=== PATIENT | female | born 1955 | race Hispanic/Latino ===

== ENCOUNTER 2017-08-25 09:29 | Inpatient (IN) | payer OTHER ==
[2017-08-25 10:04] LABS: #Basophils 0.1 thou/uL (0.0-0.2); #Eosinphils 0.1 thou/uL (0.0-0.7); #Lymphocytes 1.4 thou/uL (1.20-3.40); #Monocytes 0.3 thou/uL (0.11-0.59); #Neutrophils 6.8 thou/uL (1.40-6.50); %Basophils 0.7 % (0.0-1.0); %Eosinophils 0.7 % (0.0-10.0); %Lymphocytes 16.1 % (21.0-51.0); Hematocrit 35.1 % (36.0-47.0); Mean Platelet Volume 8.1 fL (7.4-10.4); Red Blood Cell (RBC) Count 4.12 mill/uL (4.20-5.40); White Blood Cell (WBC) Count 8.5 thou/uL (4.8-10.8)
[2017-08-25 10:25] LABS: ALT (SGPT) 22 U/L (8-55); AST (SGOT) 34 U/L (5-34); Alkaline Phosphatase 127 U/L (40-150); Anion Gap 17 mmol/L (10-20); BUN (Urea Nitrogen) 41 mg/dL (9.8-20.1); Bilirubin, Total 0.4 mg/dL (0.2-1.2); Calc. Creatinine Clearance 0 mL/min (70-130); Calcium 8.7 mg/dL (7.8-10.44); Carbon Dioxide 23 mmol/L (23-31); Chloride 102 mmol/L (98-107); Estimated GFR-MDRD 17; Globulin 3.7 g/dL (2.4-3.5); Protein, Total 7.1 g/dL (6.0-8.3)
[2017-08-25 10:30] LABS: Troponin I 0.034 ng/mL (< 0.028)
[2017-08-25] MEDS ORDERED: Dextrose 50% Abboject 50 ML SYRINGE ONE (11:12)
[2017-08-25 12:41] LABS: Bilirubin Negative (Negative); Blood, Urine Trace (Negative); Glucose, Urine (Dipstick) 500 mg/dL (Negative); Ketone, Urine Negative (Negative); Nitrite Negative (Negative); Protein, Urine (Dipstick) 300 mg/dL (Neg-Trace)
[2017-08-25 12:43] LABS: Bacteria/HPF None Seen HPF (None Seen); Hyaline Casts/LPF 0-3 HYALINE CAST LPF (0-3 Hyaline); Squamous Epithelial 0-3 HPF (0-3); WBC/HPF 0-3 HPF (0-3)
[2017-08-25] MEDS ORDERED: Potassium Bicarbonate/Cit Ac 25 MEQ TAB ONE (12:53)
[2017-08-25 14:13] LABS: Troponin I 0.013 ng/mL (< 0.028)
--- NOTE | 2017-08-25 14:58 | HP ---
PRIMARY CARE PHYSICIAN: Christa Schumacher M.D. CHIEF COMPLAINT: Hypoglycemic episode. HISTORY OF PRESENT ILLNESS: Ms. Morfin is a very pleasant 62-year-old female who reported that gt ier that she was feeling extremely weak this morning. EMS was called and her blood sugar was noted to be 40. The EMS gave the patient's glucose en route and had increased up to 70. When she was edel luated in the ER, it was found that her creatinine was elevated at 2.79. She was also hypokalemic a nd her repeat blood sugar was 57 and for this reason she is being placed in observation. She says t hat her primary care physician recently increased her insulin from Levemir 35 units in the morning a nd 40 units in the evening to 45 units in both the morning as well as evening. The patient also has noted a decreased appetite over the last few years actually and has lost from 180 pounds down to 14 0 pounds in the last year or more. She denies any dysphagia or odynophagia; however, her primary ca re physician had made arrangements for her to have what sounds like an upper endoscopy. She denies any sick symptoms such as fever, chills, sore throat, cough, congestion or diarrhea. She does have a history of chronic kidney disease. Her son says for the last 2 years last known, it was stage 4. [address] Lima few days ago and he had ordered some lab work on the patient as well as increased her chlorthalidone dose and was planning on getting a renal ultrasound as well as lower extremity ve nous Doppler on the right leg. The patient is currently awake and alert and has no specific complai nts. REVIEW OF SYSTEMS: CONSTITUTIONAL: There have been no fevers, no chills, no night sweats, no weigh t loss. HEENT: She denies any headaches, no dizziness, no visual changes, no sore throat, rhinorrh ea, neck pain, no adenopathy. PULMONARY: No hemoptysis, no cough, no wheezing. CARDIOVASCULAR: S he denies any chest pain, no shortness of breath, no PND, no orthopnea. GASTROINTESTINAL: No abdom inal pain recently. No dysphagia, no odynophagia, no nausea, no vomiting, no change in bowels. GEN ITOURINARY: No urinary frequency, hematuria, no hesitancy. NEUROLOGIC: No focal weakness, numbnes s, no seizures. PSYCHIATRIC: No symptoms of anxiety or depression. PAST MEDICAL HISTORY: Significant for diabetes mellitus for about 30 years, hypertension, elevated cholesterol, thyroid disease, chronic kidney disease stage 4, asthma and hepatitis C. PAST SURGICAL HISTORY: She has had a partial hysterectomy as well as cholecystectomy. ALLERGIES: No known drug allergies. SOCIAL HISTORY: She is , but . She is a nonsmoker and nondrinker, has three childr en. FAMILY HISTORY: Significant for diabetes, hypertension, brain cancer, and cirrhosis. CURRENT MEDICATIONS: Include losartan 100 mg daily, clonidine 0.1 mg twice a day, amlodipine 10 mg daily, chlorthalidone 25 mg twice a day, iron sulfate 325 mg daily, fenofibrate 48 mg daily, levothy roxine 88 mcg daily, Levemir 45 units twice a day, Tradjenta 5 mg daily, ProAir inhaler, and Nexium 40 mg daily. PHYSICAL EXAMINATION: GENERAL: The patient is awake and alert and oriented. She appears to be in no acute distress. VITAL SIGNS: Blood pressure was 164/74, heart rate 89, respiratory rate of 18, temperature is 98.5. HEENT: Pupils are equal, round, and reactive. Extraocular muscles are intact. Her sclerae are ani cteric. Throat; no erythema, no exudates. She has got poor dentition. No oral lesions. NECK: No adenopathy, no bruits. LUNGS: Clear to auscultation. No wheezing, no rales. CARDIOVASCULAR: She has a normal S1 and S2. I do not appreciate an S3 or S4. No murmurs, clicks. No rubs. ABDOMEN: Soft, nontender, nondistended. Positive for bowel sounds. No rebound, no guarding. EXTREMITIES: She does have bilateral pitting edema with right leg being more than the left. She burleson s got palpable dorsalis pedis pulses. NEUROLOGIC: Neurologically, the exam is nonfocal. SIGNIFICANT LABORATORY RESULTS: Sodium was 139, potassium 2.5, chloride is 102, CO2 of 23, BUN of 4 1, creatinine of 2.79, glucose 57. Troponin 0.034, white blood cell count 8.5, hemoglobin 11.9, hem atocrit of 35.1, platelet count is 288. Urinalysis is essentially negative. ASSESSMENT AND PLAN: 1. This is a pleasant 62-year-old female that presents to the emergency room after hypoglycemic epi sode. This occurred shortly after the patient's insulin dose was raised. This is also in the setti ng of chronic kidney failure. The likely scenario is that the hypoglycemic episode is due to the in crease in dose of insulin in the setting of chronic kidney disease. Although infection is a possibi lity, it does not appear evident in this patient as her white count is normal. Her urinalysis looks okay. We will go ahead and check a chest x-ray to rule out pulmonary process; however, she does no t have any pulmonary symptoms. It is noted that her troponins are in the indeterminate range. Agai n this is likely related to chronic kidney disease. We will continue to trend her cardiac enzymes a nd reassess. 2. With regards to glycemic control, the patient says the last time she felt good was when she was on 35 units twice a day; however, she says at that time her blood sugars were in the 300s reportedly . It is unclear what type of diet she was consuming at that time. I suspect she is going to be a f airly brittle diabetic given kidney disease and therefore suggest outpatient Endocrinology evaluatio n to help maintain her blood sugars. In the meantime, we will try to get the patient out of dangero usly low values and decrease her insulin back to 30 units along with treating her with a sliding sca le and see what her trend is. 3. We will go ahead and check the renal ultrasound for the kidney injury to see if she has any obst ructive pattern and to make sure her kidney size is compatible with chronic kidney disease. 4. We will check the lower extremity venous Doppler to rule out deep venous thrombosis. We will al so consult Dr. Lima who has recently seen her for any further recommendations regarding her kidney d isease.
[2017-08-25] MEDS ORDERED: Acetaminophen 325 MG TAB PO PRN (16:02)
[2017-08-25] MEDS ORDERED: Ondansetron HCl/PF 4 MG/2 ML Vial IVP PRN (16:02)
[2017-08-25] MEDS ORDERED: HumaLOG 300 UNITS/3 ML VIAL SC PRN (16:02)
[2017-08-25] MEDS ORDERED: Ondansetron ODT 4 MG TAB PO PRN (16:02)
[2017-08-25] MEDS ORDERED: hydrALAZINE 20 MG/ML VIAL SLOW IVP PRN (16:02)
[2017-08-25] MEDS ORDERED: Dextrose 5% in Water 1,000 ML IV PRN (16:02)
[2017-08-25] MEDS ORDERED: Dextrose 50% Abboject 50 ML SYRINGE SLOW IVP PRN (16:02)
[2017-08-25 16:24] LABS: Troponin I 0.014 ng/mL (< 0.028)
[2017-08-25] MEDS ORDERED: Heparin 0 ML ONE (17:27)
[2017-08-25] MEDS: Heparin 5,000 UNITS/ML VIAL SC SCH ×2 (17:30→21:17)
--- NOTE | 2017-08-25 18:06 | RAD ---
CHEST TWO VIEWS: 08/25/17 HISTORY: Chest pain. FINDINGS: The cardiac silhouette and pulmonary vasculature are unremarkable. Mediastinum is midline. There is no confluent air space consolidation, pneumothorax, or pleural fluid evident. laboratory monitor leads overlie the chest. IMPRESSION: No active cardiopulmonary abnormalities are demonstrated. POS: [facility]
--- NOTE | 2017-08-25 18:24 | ULT ---
RENAL ULTRASOUND: 08/25/17 COMPARISON: None. HISTORY: Acute versus chronic kidney disease. TECHNIQUE: Multiplanar davis scale sonographic imaging of kidneys and urinary bladder obtained. FINDINGS: Right kidney measures 10.7 x 4.8 x 5.5 cm. There is a probable subcentimeter stone within the mid/lo wer pole of the right kidney measuring up to 5-6 mm. No hydronephrosis or mass seen on the right. Im aging of the urinary bladder appears grossly unremarkable. The left kidney measures 11.3 x 4.8 x 6.0 cm and demonstrates no discrete stone, hydronephrosis, or mass. IMPRESSION: No hydronephrosis seen on either side. Question subcentimeter right renal stone. POS: [facility]
--- NOTE | 2017-08-25 18:36 | ULT ---
RIGHT LOWER EXTREMITY VENOUS DOPPLER ULTRASOUND 08/25/17 COMPARISON: None. HISTORY: Right lower extremity edema, swelling. TECHNIQUE: Multiplanar davis scale sonographic imaging of venous structures of right lower extremity obtained wi th color flow and spectral analysis. FINDINGS: Right common femoral vein, greater saphenous vein, profunda femoral vein, femoral vein, popliteal ve in and posterior tibial vein are patent. there is normal blood flow and augmentation compression wit hin deep venous system of right lower extremity with no evidence for DVT. IMPRESSION: No evidence for deep venous thrombosis of the right lower extremity. POS: [facility]
[2017-08-25] MEDS ORDERED: Insulin Detemir 100 UNITS/ML 30 UNITS in Pre-Filled Syringe SC SCH (21:00)
[2017-08-25] MEDS ORDERED: Heparin 5,000 UNITS/ML VIAL SC SCH (22:00)
--- NOTE | 2017-08-25 22:44 | CON ---
DATE OF CONSULTATION: 08/25/2017 NEPHROLOGY CONSULTATION CONSULTING PHYSICIAN: Rio Mike M.D. REASON FOR CONSULTATION: Acute kidney injury on chronic kidney disease. REASON FOR ADMISSION: Hypoglycemia. HISTORY OF PRESENT ILLNESS: This is a 62-year-old female with a past medical history of chronic kid tex disease and follows with Dr. Lima, type 2 diabetes, hypertension, hyperlipidemia, asthma, and he patitis C, came to the hospital with hypoglycemic episode. The patient was not feeling well. Denie s any fevers, chills. No nausea, vomiting, or diarrhea lately. She just had dry heaves this mornin g when the sugar was low, but right now, she feels better. Family was at the bedside. No sick cont acts at home. No skin rash reported. PAST MEDICAL HISTORY: Positive for type 2 diabetes, hypertension, hyperlipidemia, hypothyroidism, c hronic kidney disease, asthma, hepatitis C. PAST SURGICAL HISTORY: Partial hysterectomy and cholecystectomy. HOME MEDICATIONS: Losartan, clonidine, amlodipine, chlorthalidone, sulfate, fenofibrate, levothyrox ine, Levemir, Tradjenta, ProAir, Nexium. ALLERGIES: No known drug allergies. SOCIAL HISTORY: No smoking, alcohol, or illicit drug use. FAMILY HISTORY: Positive for diabetes. REVIEW OF SYSTEMS: The following complete review of systems was negative, unless otherwise mentione d in the HPI or below: Constitutional: Weight loss or gain, ability to conduct usual activities. Skin: Rash, itching. Eyes: Double vision, pain. ENT/Mouth: Nose bleeding, neck stiffness, pain, tenderness. Cardiovascular: Palpitations, dyspnea on exertion, orthopnea. Respiratory: Shortness of breath, wheezing, cough, hemoptysis, fever or night sweats. Gastrointestinal: Poor appetite, abdominal pain, heartburn, nausea, vomiting, constipation, or diar elisa. Genitourinary: Urgency, frequency, dysuria, nocturia. Musculoskeletal: Pain, swelling. Neurologic/Psychiatric: Anxiety, depression. Allergy/Immunologic: Skin rash, bleeding tendency. PHYSICAL EXAMINATION: GENERAL: This is an elderly female, in no apparent distress. VITAL SIGNS: Temperature 98.5, pulse 89, respiratory rate 18, blood pressure 164/74. HEENT: Atraumatic, normocephalic. Oral mucosa is moist. NECK: Supple, no masses. CARDIOVASCULAR: S1, S2 heard. Rate and rhythm normal. RESPIRATORY: Clear. MUSCULOSKELETAL: 1+ edema. DERMATOLOGIC: No skin rash. NEUROLOGIC: Alert, awake. PSYCHIATRIC: Mood and affect normal. LABORATORY DATA: Hemoglobin 7.9. Potassium is 2.5, BUN is 41, and creatinine is 2.7. ASSESSMENT AND PLAN: 1. Acute kidney injury on chronic kidney disease, most likely volume depletion, hydration as tolera tay, avoid nephrotoxins. We will hold the diuretics at this time. Continue oral hydration. 2. Hypokalemia, most likely from diuretics, replace and monitor closely. 3. Hypoglycemia, per primary team. 4. Anemia, mild. 5. Edema, controlled. 6. Hypertension. Blood pressure is stable. 7. Avoid nephrotoxins. Renally dose all the medicines. IV fluids if tolerated. Replete potassium . Thank you for the consultation. We will follow.
[2017-08-26 05:18] LABS: #Basophils 0.1 thou/uL (0.0-0.2); #Eosinphils 0.2 thou/uL (0.0-0.7); #Lymphocytes 1.7 thou/uL (1.20-3.40); #Monocytes 0.3 thou/uL (0.11-0.59); #Neutrophils 3.1 thou/uL (1.40-6.50); %Basophils 1.2 % (0.0-1.0); %Lymphocytes 31.3 % (21.0-51.0); %Monocytes 5.2 % (0.0-10.0); Hematocrit 26.8 % (36.0-47.0); Mean Platelet Volume 8.6 fL (7.4-10.4); White Blood Cell (WBC) Count 5.3 thou/uL (4.8-10.8)
[2017-08-26 05:32] LABS: Anion Gap 10 mmol/L (10-20); BUN (Urea Nitrogen) 36 mg/dL (9.8-20.1); Calc. Creatinine Clearance 26 mL/min (70-130); Calcium 7.9 mg/dL (7.8-10.44); Carbon Dioxide 27 mmol/L (23-31); Chloride 106 mmol/L (98-107); Estimated GFR-MDRD 20
[2017-08-26] MEDS ORDERED: Insulin Detemir 100 UNITS/ML 30 UNITS in Pre-Filled Syringe SC SCH (09:00)
[2017-08-26] MEDS: Heparin 5,000 UNITS/ML VIAL SC SCH ×2 (09:29→15:30)
[2017-08-26] MEDS ORDERED: Potassium Chloride 20 MEQ TAB PO SCH (14:45)
--- NOTE | 2017-08-26 14:56 | PDOC.PN ---
- Subjective Encounter Start Date: 08/26/17 Encounter Start Time: 14:55 Ms. Morfin does not have any complaints today. - Objective Resuscitation Status: Resuscitation Status FULL:Full Resuscitation MAR Reviewed: Yes Vital Signs & Weight: Vital Signs (12 hours) Temp Pulse Resp BP Pulse Ox 08/26/17 09:25 98.2 F 100 16 148/72 H 98 08/26/17 08:35 98.2 F 100 16 08/26/17 04:00 98.1 F 78 20 168/77 H 96 Weight Weight 154 lb I&O: 08/25/17 08/26/17 08/27/17 06:59 06:59 05:59 Intake Total 720 Output Total 900 Balance -180 Result Diagrams: 08/26/17 04:54 08/26/17 04:54 Additional Labs: Accuchecks 08/26/17 08/26/17 08/26/17 13:06 08:10 04:49 POC Glucose 176 H 96 71 08/26/17 08/25/17 08/25/17 00:03 20:48 17:24 POC Glucose 94 98 149 H 08/25/17 15:21 POC Glucose 221 H Phys Exam - Physical Examination HEENT: PERRLA Respiratory: no wheezing, no rales, no rhonchi, clear to auscultation bilateral Cardiovascular: RRR, no significant murmur Gastrointestinal: soft, non-tender, positive bowel sounds Musculoskeletal: no edema Dx/Plan (1) Hypoglycemia associated with diabetes Code(s): E11.649 - TYPE 2 DIABETES MELLITUS WITH HYPOGLYCEMIA WITHOUT COMA Status: Acute (2) Hypokalemia Code(s): E87.6 - HYPOKALEMIA Status: Acute (3) Hypertension Code(s): I10 - ESSENTIAL (PRIMARY) HYPERTENSION Status: Acute (4) Diabetes mellitus type 2 in obese Code(s): E11.69 - TYPE 2 DIABETES MELLITUS WITH OTHER SPECIFIED COMPLICATION; E66.9 - OBESITY, UNSPECIFIED Status: Acute (5) Chronic kidney disease, stage 4 (severe) Code(s): N18.4 - CHRONIC KIDNEY DISEASE, STAGE 4 (SEVERE) Status: Acute - Plan * Hypoglycemia- improved * DM- blood glucose is better on a lower dose of insulin * Hypokalemia- will replace, and hold Chlorthaladone * Stable for discharge home.
[2017-08-26 15:05] VITALS: BMI 29.0
[2017-08-26 15:50] VITALS: BP 147/64; TEMP 98.7
--- NOTE | 2017-08-26 17:37 | PRG ---
DATE OF SERVICE: 08/26/2017 SUBJECTIVE: The patient was seen and examined at the bedside and overnight events noted. The patie nt denies any shortness of breath or chest pain or palpitation. No history of nausea, vomiting, temi rrhea, fever, chills, or cramps. OBJECTIVE: GENERAL: This is a well-built female in no apparent distress. VITAL SIGNS: Temperature 98.2, pulse 100, respiratory rate 17, blood pressure 148/72. HEENT: Atraumatic, normocephalic, Oral mucosa is moist. NECK: Supple. CARDIOVASCULAR: S1, S2 heard, rate and rhythm regular. RESPIRATORY: Clear to auscultation. GASTROINTESTINAL: Abdomen is soft. MUSCULOSKELETAL: No tenderness, no edema. DERMATOLOGIC: No skin rash. NEUROLOGIC: Alert, awake, and oriented x3. No focal neurologic deficits. Moving all the extremiti es. PSYCHIATRIC: Mood and affect normal. LABORATORY DATA: Potassium is 3.3, BUN is 36, creatinine is 2.4. ASSESSMENT AND PLAN: 1. Acute kidney injury on chronic kidney disease, stage 4. Feels better. Avoid nephrotoxins, cont inue hydration as tolerated. 2. Hypokalemia, replace and monitor. 3. Anemia. 4. Edema. 5. Hypertension. 6. Overall, renal function is getting better. Replace potassium and monitor.
--- NOTE | 2017-08-27 01:22 | DIS ---
DATE OF ADMISSION: 08/25/2017 DATE OF DISCHARGE: 08/26/2017 PRIMARY CARE PHYSICIAN: Christa Schumacher MD DISCHARGE DISPOSITION: Home. PRIMARY DISCHARGE DIAGNOSES: 1. Hypoglycemia. 2. Diabetes mellitus, type 2. 3. Hypertension. 4. Hypokalemia secondary to medication. 5. Elevated cholesterol. 6. Chronic kidney disease stage IV. 7. Asthma. 8. Hepatitis C. 9. Hypothyroidism. DISCHARGE MEDICATIONS: Please note that the patient's chlorthalidone is on hold until she is re-edel luated by Dr. Lima. Also please note that her insulin dose was decreased to 30 units twice a day of the Levemir, continue clonidine 0.1 mg t.i.d., sodium bicarbonate 650 mg twice daily, losartan 100 mg daily, Tradjenta 5 mg daily, levothyroxine 88 mcg daily, ferrous sulfate 325 mg t.i.d., fenofibra te 48 mg at bedtime, Nexium 40 mg daily, vitamin D 1000 units daily, vitamin B12 of 500 mcg daily, a nd amlodipine 10 mg daily. PROCEDURES DONE DURING ADMISSION: She had a renal ultrasound showing no hydronephrosis. There was a possible subcentimeter stone within the mid pole of the right kidney measuring 5-6 mm, but there w as no hydronephrosis or mass in either kidney. The patient also had a lower extremity venous Dopple r of the right leg, which was negative for DVT. CODE STATUS: FULL CODE. ALLERGIES: No known drug allergies. HOSPITAL COURSE: Ms. Morfin is a pleasant 62-year-old female who was admitted to the hospital due t o hypoglycemia. She recently had a dose increase in her Levemir. It is suspected that this was the likely culprit for the hypoglycemia. There was no evidence of infection by laboratory results or x -ray. She had cardiac enzyme done on admission, which was negative and she had a total of 3 sets. Thyroid function screen was normal as well. The patient has a history of chronic kidney disease and she had some mild acute on chronic kidney failure on admission as well. This results with holding her diuretic therapy as well as some hypokalemia, which is likely due to diuretic therapy as well. The patient was instructed that she will need to keep her oral intake up and eat 3 meals a day as we ll as a bedtime snack and we will be sending her home on a reduced dose of insulin, which she may ru n a little bit high, but further titration can be done by Dr. Schumacher in the outpatient setting and a gain her chlorthalidone will be on hold due to hypokalemia until she has been reevaluated by Dr. Enoc boyce.
--- NOTE | 2017-10-14 16:46 | EKG ---
Test Reason : LOW BLOOD SUGAR Blood Pressure : / mmHG Vent. Rate : 087 BPM Atrial Rate : 087 BPM P-R Int : 120 ms QRS Dur : 086 ms QT Int : 428 ms P-R-T Axes : 032 -36 075 degrees QTc Int : 515 ms Poor data quality, interpretation may be adversely affected Normal sinus rhythm Left axis deviation Prolonged QT Abnormal ECG Confirmed by SOCO ROMANO MD ([id number]), film editor supervisor RADHA ECHOLS ([id number]) on 10/14/2017 4:46:33 PM Referred By: JUAN ANTONIO Confirmed By:SOCO ROMANO MD
== END 2017-08-26 17:05 | disposition home or self-care (01) | DRG 639 ==
LOC: ERS 09:29 → 2NO 13:03
PROVIDERS: ADMIT Internal Medicine; ATTEND Internal Medicine
DX: E11.649 Type 2 diabetes mellitus with hypoglycemia without coma (principal); N17.9 Acute kidney failure, unspecified; N18.4 Chronic kidney disease, stage 4 (severe); E11.22 Type 2 diabetes mellitus with diabetic chronic kidney disease; Z79.4 Long term (current) use of insulin; E87.6 Hypokalemia; I12.9 Hypertensive chronic kidney disease with stage 1 through stage 4 chronic kidney disease, or unspecified chronic kidney disease; E78.00 Pure hypercholesterolemia, unspecified; J45.909 Unspecified asthma, uncomplicated; B18.2 Chronic viral hepatitis C; D63.1 Anemia in chronic kidney disease; E03.9 Hypothyroidism, unspecified; T50.2X5A Adverse effect of carbonic-anhydrase inhibitors, benzothiadiazides and other diuretics, initial encounter; T38.3X5A Adverse effect of insulin and oral hypoglycemic [antidiabetic] drugs, initial encounter; E78.5 Hyperlipidemia, unspecified; K21.9 Gastro-esophageal reflux disease without esophagitis; E55.9 Vitamin D deficiency, unspecified; E53.8 Deficiency of other specified B group vitamins
CPT/HCPCS: 36415; 36416; 71020; 76770; 80048; 80053; 81003; 81015; 82010; 82553; 84443; 84484; 85025; 87624; 88142; 93005; 96361; 96374; G0123; J1644; J1815

== ENCOUNTER 2017-09-18 16:48 | Emergency (ER) | payer OTHER ==
[2017-09-18 17:55] LABS: #Eosinphils 0.1 thou/uL (0.0-0.7); #Lymphocytes 1.1 thou/uL (1.20-3.40); #Monocytes 0.2 thou/uL (0.11-0.59); #Neutrophils 6.2 thou/uL (1.40-6.50); %Basophils 0.6 % (0.0-1.0); %Eosinophils 1.6 % (0.0-10.0); %Lymphocytes 13.9 % (21.0-51.0); %Monocytes 2.9 % (0.0-10.0); Hematocrit 32.3 % (36.0-47.0); Mean Platelet Volume 7.8 fL (7.4-10.4); Red Blood Cell (RBC) Count 3.71 mill/uL (4.20-5.40); White Blood Cell (WBC) Count 7.6 thou/uL (4.8-10.8)
[2017-09-18 18:19] LABS: ALT (SGPT) 30 U/L (8-55); AST (SGOT) 38 U/L (5-34); Alkaline Phosphatase 125 U/L (40-150); Anion Gap 15 mmol/L (10-20); BUN (Urea Nitrogen) 55 mg/dL (9.8-20.1); Bilirubin, Total 0.4 mg/dL (0.2-1.2); Calc. Creatinine Clearance 0 mL/min (70-130); Calcium 8.4 mg/dL (7.8-10.44); Carbon Dioxide 19 mmol/L (23-31); Chloride 107 mmol/L (98-107); Estimated GFR-MDRD 15; Globulin 3.4 g/dL (2.4-3.5); Lipase 79 U/L (8-78); Protein, Total 6.4 g/dL (6.0-8.3)
[2017-09-18] MEDS ORDERED: Promethazine HCl 25 MG/ML VIAL ONE (18:32)
[2017-09-18 19:00] LABS: Bilirubin Negative (Negative); Blood, Urine Trace (Negative); Glucose, Urine (Dipstick) 500 mg/dL (Negative); Ketone, Urine Trace mg/dL (Negative); Nitrite Negative (Negative); Protein, Urine (Dipstick) > or equal to 300 mg/dL (Neg-Trace); Urobilinogen 0.2 mg/dL (0.2-1.0)
[2017-09-18 19:02] LABS: Bacteria/HPF None Seen HPF (None Seen); Hyaline Casts/LPF 4-6 HYALINE CAST LPF (0-3 Hyaline); RBC/HPF 0-3 HPF (0-3)
[2017-09-18 19:04] LABS: Renal Epithelial None Seen HPF (0-3); Transitional Epithelial NONE SEEN HPF (0-3)
--- NOTE | 2017-09-18 20:10 | RAD ---
ABDOMEN 1 VIEW: Date: 09/18/17 HISTORY: Abdominal pain. COMPARISON: None. FINDINGS: Although the header says Abdomen 2 View, only 1 view of the abdomen in the supine view submitte d for interpretation. No dilated loops of large or small bowel. Evaluation for free air is limited without upright views. Dense vascular calcifications. Mild dextroscoliosis. IMPRESSION: Within the limits of a single view, no acute intra-abdominal abnormality. POS: [facility]
[2017-09-18] MEDS ORDERED: cefTRIAXone\\ROCEPHIN 2 GM in Sodium Chloride 0.9% 100 ML IVPB SCH (21:00)
== END 2017-09-18 20:03 | disposition home or self-care (01) ==
LOC: ERS 16:48
DX: N39.0 Urinary tract infection, site not specified (principal); N32.89 Other specified disorders of bladder; I12.0 Hypertensive chronic kidney disease with stage 5 chronic kidney disease or end stage renal disease; E11.22 Type 2 diabetes mellitus with diabetic chronic kidney disease; N18.6 End stage renal disease; Z79.4 Long term (current) use of insulin; Z79.899 Other long term (current) drug therapy
CPT/HCPCS: 51701; 74020; 80053; 81003; 81015; 83690; 85025; 87086; 96365; 96367; J0696; J2550; J7050

== ENCOUNTER 2017-09-25 08:55 | Outpatient (CLI) | payer OTHER | END 2017-09-25 08:56 | disposition home or self-care (01) | LOC: BICMAMMO 08:55 | PROVIDERS: ATTEND Internal Medicine | DX: Z12.31 Encounter for screening mammogram for malignant neoplasm of breast (principal); Z80.3 Family history of malignant neoplasm of breast | CPT/HCPCS: 77067; G0202 ==

== ENCOUNTER 2017-11-06 09:30 | Outpatient (CLI) | payer OTHER ==
--- NOTE | 2017-11-06 11:19 | ULT ---
COMPLETE ABDOMINAL ULTRASOUND: Date: 11/06/17 HISTORY: Epigastric abdominal pain. TECHNIQUE: Multiplanar Walker scale and color Doppler images were obtained in a complete abdominal ultrasound. FINDINGS: The liver is normal in echogenicity without focal lesions or intrahepatic ductal dilatation. The gall bladder has been removed. The common bile duct could not be visualized. The aorta, inferior vena cava, and pancreas could not be visualized. The spleen is normal in echogeni city without focal lesions and measures 11.2 cm in length. Both kidneys are normal in echogenicity without hydronephrosis or calculi and measure 10.5 and 10.3 c m in length on the right and left, respectively. IMPRESSION: Status post cholecystectomy without acute abnormality. POS: [facility]
--- NOTE | 2017-11-06 11:20 | ULT ---
PELVIC ULTRASOUND: Date: 11/06/17 HISTORY: Pelvic pain and epigastric abdominal pain. TECHNIQUE: Multiplanar Walker scale and color Doppler images were obtained in a transabdominal and transvaginal pe lvic ultrasound. FINDINGS: Uterus was removed in 1984. No mass is seen in the pelvis. A small amount of free fluid is seen in th e pelvis. Neither ovary could be visualized. IMPRESSION: Nonspecific small amount of free fluid in the pelvis. POS: [facility]
== END 2017-11-06 09:31 | disposition home or self-care (01) ==
LOC: ULT 09:30
PROVIDERS: ATTEND Internal Medicine
DX: R10.13 Epigastric pain (principal); Z90.49 Acquired absence of other specified parts of digestive tract
CPT/HCPCS: 76700; 76856

== ENCOUNTER 2018-01-10 16:48 | Inpatient (IN) | payer OTHER ==
[2018-01-10] MEDS ORDERED: Morphine 10 MG/ML VIAL ONE (17:42)
[2018-01-10 18:02] LABS: #Basophils 0.1 thou/uL (0.0-0.2); #Eosinphils 0.2 thou/uL (0.0-0.7); #Lymphocytes 1.4 thou/uL (1.20-3.40); #Monocytes 0.4 thou/uL (0.11-0.59); #Neutrophils 4.9 thou/uL (1.40-6.50); %Basophils 1.5 % (0.0-1.0); %Eosinophils 2.7 % (0.0-10.0); %Lymphocytes 19.5 % (21.0-51.0); %Monocytes 5.1 % (0.0-10.0); %Neutrophils 71.2 % (42.0-75.0); Hemoglobin 7.7 g/dL (12.0-16.0); Mean Corpuscular HGB CONC 33.6 g/dL (32.0-36.0); Mean Corpuscular Hemoglobin 27.5 pg (27.0-31.0); Mean Platelet Volume 7.7 fL (7.4-10.4); Platelet Count 166 thou/uL (130-400); RBC Distribution Width 11.9 % (11.5-14.5); Red Blood Cell (RBC) Count 2.81 mill/uL (4.20-5.40); White Blood Cell (WBC) Count 6.9 thou/uL (4.8-10.8)
[2018-01-10 18:14] LABS: ALT (SGPT) 32 U/L (8-55); AST (SGOT) 39 U/L (5-34); Albumin 2.7 g/dL (3.4-4.8); Alkaline Phosphatase 172 U/L (40-150); Anion Gap 17 mmol/L (10-20); BUN (Urea Nitrogen) 78 mg/dL (9.8-20.1); Bilirubin, Total 0.3 mg/dL (0.2-1.2); Calc. Creatinine Clearance 0 mL/min (70-130); Calcium 7.8 mg/dL (7.8-10.44); Carbon Dioxide 16 mmol/L (23-31); Chloride 108 mmol/L (98-107); Estimated GFR-MDRD 9; Globulin 3.1 g/dL (2.4-3.5); Glucose 328 mg/dL (80-115); Lipase 82 U/L (8-78); Potassium 3.4 mmol/L (3.5-5.1); Protein, Total 5.8 g/dL (6.0-8.3); Sodium 138 mmol/L (136-145)
[2018-01-10] MEDS ORDERED: Ondansetron HCl/PF 4 MG/2 ML Vial ONE (18:51)
[2018-01-10 19:48] LABS: CKMB 1.8 ng/mL (0-6.6); Troponin I Less than 0.010 ng/mL (< 0.028)
[2018-01-10 20:07] LABS: Bilirubin Negative (Negative); Blood, Urine Trace (Negative); Glucose, Urine (Dipstick) 250 mg/dL (Negative); Leukocyte Negative (Negative); Nitrite Negative (Negative); Protein, Urine (Dipstick) > or equal to 300 mg/dL (Neg-Trace); Urobilinogen 0.2 mg/dL (0.2-1.0)
[2018-01-10 20:16] LABS: Clarity Hazy (Clear)
[2018-01-10 20:17] LABS: Bacteria/HPF 1+ HPF (None Seen); RBC/HPF 0-3 HPF (0-3); Squamous Epithelial 0-3 HPF (0-3); WBC/HPF None Seen HPF (0-3)
--- NOTE | 2018-01-10 21:01 | CT ---
CT ABDOMEN NONCONTRAST CT PELVIS NONCONTRAST: (urolithiasis protocol) DATE: 01/10/18 TIME: 6:28 p.m. HISTORY: 62-year-old female with chronic renal disease presents with right mid abdominal pain. Patient states she has a hernia in that location. COMPARISON: None. TECHNIQUE: IV injection of iodinated contrast media: none Oral contrast media: none FINDINGS: Other than for urolithiasis, the lack of IV and oral contrast limits the evaluation. No hernia is identified. There is edema throughout the subcutaneous fat surrounding the abdomen and p james. There is extensive atherosclerotic calcification of all major arteries, including coronary art eries. No abdominal aortic aneurysm. Moderate amount of free fluid around the liver and spleen, and a long the bilateral paracolic gutters. Moderate volume of free fluid within the pelvic cavity. Uterus is surgically absent. Urinary bladder has wall thickness that is within normal limits. Within the deal itations of a noncontrast scan, no major pathology is identified involving the kidneys, liver, adrena ls, or spleen. Because of the generalized edema in the mesentery and retroperitoneum, it is difficult to evaluate for acute pancreatitis. There is apparent mural edema involving the stomach and duodenum . The appendix is normal. No abdominal aortic aneurysm. No renal, ureteral, or bladder calculi. No pl eural effusion. Lung bases are clear. In the lower most images, there is soft tissue thickening and i rregularity in the region of the vagina, incompletely evaluated. IMPRESSION: 1. Moderate volume of ascites. 2. Anasarca. 3. Status post cholecystectomy and hysterectomy. 4. No small bowel obstruction. 5. No urolithiasis or obstructive uropathy. 6. Extensive atherosclerotic calcification indicates either chronic renal failure or longstandin g diabetes mellitus. 7. Irregularity and soft tissue fullness in the region of the vagina and perineum. Recommend cor relation with physical examination to rule out the possibility of cancer in that location. 8. Possible gastroduodenitis. Code T JN R POS: [facility]
[2018-01-10] MEDS ORDERED: Ondansetron ODT 4 MG TAB SL PRN (21:21)
[2018-01-10] MEDS ORDERED: Ondansetron HCl/PF 4 MG/2 ML Vial IVP PRN (21:21)
[2018-01-10] MEDS ORDERED: Morphine 2 MG/ML SYRINGE SLOW IVP PRN (21:24)
[2018-01-10] MEDS ORDERED: Morphine 5 MG/ML SYRINGE SLOW IVP PRN (21:24)
[2018-01-11 02:08] LABS: Troponin I 0.015 ng/mL (< 0.028)
[2018-01-11] MEDS ORDERED: Enoxaparin Sodium 30 MG/0.3 ML SYRINGE SC SCH (03:12)
[2018-01-11] MEDS ORDERED: Acetaminophen 325 MG TAB PO PRN (03:12)
[2018-01-11] MEDS ORDERED: Dextrose 5% in Water 1,000 ML IV PRN (03:12)
[2018-01-11] MEDS ORDERED: Dextrose 50% Abboject 50 ML SYRINGE SLOW IVP PRN (03:12)
[2018-01-11] MEDS ORDERED: Pantoprazole 40 MG VIAL IVP SCH (03:12)
[2018-01-11] MEDS: Levothyroxine Sodium 88 MCG TAB PO SCH (05:17)
[2018-01-11] MEDS: Furosemide 40 MG/4 ML VIAL SLOW IVP SCH ×2 (05:17→14:55)
[2018-01-11 06:07] LABS: #Eosinphils 0.2 thou/uL (0.0-0.7); #Lymphocytes 1.3 thou/uL (1.20-3.40); #Monocytes 0.3 thou/uL (0.11-0.59); #Neutrophils 3.2 thou/uL (1.40-6.50); %Basophils 0.4 % (0.0-1.0); %Eosinophils 3.6 % (0.0-10.0); %Lymphocytes 26.2 % (21.0-51.0); %Monocytes 6.7 % (0.0-10.0); %Neutrophils 63.1 % (42.0-75.0); Hemoglobin 7.2 g/dL (12.0-16.0); Mean Corpuscular HGB CONC 33.9 g/dL (32.0-36.0); Mean Corpuscular Hemoglobin 28.6 pg (27.0-31.0); Mean Corpuscular Volume 84.3 fl (81.0-99.0); Platelet Count 159 thou/uL (130-400); RBC Distribution Width 12.1 % (11.5-14.5); Red Blood Cell (RBC) Count 2.51 mill/uL (4.20-5.40); White Blood Cell (WBC) Count 5.1 thou/uL (4.8-10.8)
[2018-01-11 06:19] LABS: Anion Gap 14 mmol/L (10-20); BUN (Urea Nitrogen) 77 mg/dL (9.8-20.1); Calc. Creatinine Clearance 14 mL/min (70-130); Calcium 7.4 mg/dL (7.8-10.44); Carbon Dioxide 16 mmol/L (23-31); Cardiac Risk 1.7 (Less than 4.5); Chloride 112 mmol/L (98-107); Cholesterol 78 mg/dl (< 200 Desired); Estimated GFR-MDRD 10; Glucose 85 mg/dL (80-115); HDL Cholesterol 45 mg/dL (>60 Neg Risk); LDL Cholesterol, Calculated 15 mg/dL; Magnesium 1.6 mg/dL (1.6-2.6); Sodium 139 mmol/L (136-145); Triglycerides 88 mg/dL (Less than 150)
[2018-01-11 06:22] LABS: Potassium 2.9 mmol/L (3.5-5.1)
[2018-01-11 06:23] LABS: Hemoglobin A1c 8.1 % (4.0-6.0)
[2018-01-11 07:24] LABS: INR-International Normal Ratio 1.1; PTT 41.8 SEC (22.9-36.1); Prothrombin Time 14.5 SEC (12.0-14.7)
--- NOTE | 2018-01-11 08:20 | HP ---
DATE OF ADMISSION: 01/11/2018 TIME OF SERVICE: 01:45 PRIMARY CARE PHYSICIAN: Christa Schumacher M.D. PRIMARY SSDS MK 2 ADVANCED OPERATOR: Afia Burk M.D. CHIEF COMPLAINT: Abdominal pain. HISTORY OF PRESENT ILLNESS: Ms. Morfin is a pleasant 62-year-old Latin-Mauritanian female with history of chronic kidney disease stage 3-4, depression, diabetes mellitus type 2, insulin-dependent, hyperte nsion, and asthma who presents to the emergency department in [facility] ER with complaint s of abdominal pain. Per the chart, she has had a history of chronic abdominal pain off and on, but was worse in the morni ng of presentation. It was a sharp stabbing pain located in the right mid and epigastric abdominal a raciel. She has been passing gas. She has had decreased p.o. intake. She has not felt like eating bec ause it seems to make the pain worse sometimes. Denies fevers or chills, no diarrhea or constipation . No GI bleeding from above or below. On arrival to ER, labs were done that showed creatinine up to 4.74, which is high for her. Labs are otherwise fairly normal except for hemoglobin of 7.7 and hematocrit of 25.0. There was some concern for possible SBP, she was given a dose of antibiotics and we were called for admission. The patient was accepted by the swing, Dr. Mike, but did not arrive prior to 9 o'clock, so patient was seen by me. She was resting comfortably in bed. She has some diffuse epigastric tenderness, but overall is feeling somewhat better. LABORATORY DATA: Reviewed. PAST MEDICAL HISTORY: 1. Depression. 2. Diabetes mellitus type 2, insulin-dependent. 3. Hypertension. 4. Asthma. 5. End-stage renal disease/chronic kidney disease stage 4-5. 6. Hyperlipidemia, primary cholesterol. 7. History of chronic hepatitis C, not treated yet. PAST SURGICAL HISTORY: 1. Cholecystectomy. 2. Hysterectomy. 3. Hernia repair x2. HOME MEDICATIONS: 1. Clonidine 0.1 mg p.o. at bedtime. 2. Sodium bicarbonate 650 mg p.o. b.i.d. 3. Multivitamin daily with losartan 100 mg p.o. daily. 4. Levothyroxine 88 mcg p.o. daily. 5. Levemir 60 units subcu b.i.d. 6. Iron sulfate 325 mg p.o. t.i.d. 7. Fenofibrate 45 mg p.o. at bedtime. 8. Vitamin D2. 9. Vitamin B12. 10. Norvasc 10 mg daily. 11. Albuterol MDI 2 puffs q.4 hours p.r.n. ALLERGIES: NKDA. FAMILY HISTORY: Negative for history of clotting or bleeding disorder, no immune dysfunction. SOCIAL HISTORY: Negative for habits x3. She never smoked. REVIEW OF SYSTEMS: A 10-point review of systems was performed, negative for all other systems except stated as per HPI. PHYSICAL EXAMINATION: VITAL SIGNS: Temperature 97.9, pulse 86, blood pressure 114/72, respiratory rate 20, satting 94% on room air. GENERAL: She is awake. She is alert. She is oriented x3. She is an older Latin-Mauritanian female ap pears to be in no distress. HEENT: Normocephalic and atraumatic. Her pupils are equal, round, reactive to light bilaterally, mu cous membranes are moist. Teeth are in poor repair. NECK: Supple, without lymphadenopathy, JVD, or thyromegaly. She has no carotid upstroke. I do not hear bruits. LUNGS: Clear anteriorly. She has no wheezes, no rales, no rhonchi. She has no prolonged expiratory phase. CARDIOVASCULAR: She has normal cardiac and regular. Normal S1, S2. No S3, S4. She does have a hol osystolic murmur best heard over the apex approximately 2/6. ABDOMEN: Soft and slightly obese. It is diffusely tender, primarily in the epigastrium. She has no rebound, rigidity or guarding. She has normoactive bowel sounds present in all 4 quadrants. EXTREMITIES: No cyanosis, no clubbing. She has 2+ edema in bilateral extremities all the way up to the lower abdomen. SKIN: Warm, moist, and well perfused. She has no other rashes or lesions. NEUROLOGIC: Cranial nerves II-XII were grossly intact. She has no focal deficits, normal speech, 5/ 5 strength, and symmetrical movement. MUSCULOSKELETAL: Normal to inspection. Large joints are uninflamed. There is no palpable effusions and good range of motion. LABORATORY DATA: Sodium 138, potassium 3.4, chloride 108, bicarbonate 16, BUN of 79, and creatinine of 4.74. Total protein 5.8 and albumin is 2.7. Calcium was slightly low at 7.8, alkaline phosphatas e 172, AST slightly elevated at 38, ALT normal at 32. CBC showed white count of 6.3, hemoglobin 7.7, hematocrit of 23.0, platelet count is 166,000. Lipase slightly elevated at 82. CK is elevated at 101, CK-MB normal at 1.0 and troponin I was less than 0. 010. RADIOGRAPHIC STUDIES: She had a CT scan of abdomen and pelvis, which showed moderate ascites, anasar ca, status post cholecystectomy and hysterectomy. Possible gastroduodenitis and perineal fullness. ASSESSMENT AND PLAN: 1. Abdominal pain: Pain control, n.p.o. and started on Protonix IV q.12 hours 40 mg. The patient h as moderate ascites. She does not have peritoneal signs and negative heel tap. We will get an ultra sound guided paracentesis for cell count, Gram stain, culture and fluid differential. In the meantim e we will follow up with antibiotics. 2. Anasarca: Patient's albumin is 2.7 or less. She has got acute renal failure on top of chronic k idney disease. We will try to adjust and started with some Lasix, otherwise we will follow up with Kaleigh Burk's recommendations. 3. Diabetes mellitus type 2, insulin-dependent on Levemir. We will continue. 4. Hypothyroidism on levothyroxine. 5. Hypertension. We will continue medications. 6. Asthma. Continue MDI as needed. 7. Chronic kidney disease stage 4-5, follow up with Dr. Burk's recommendations. 8. Chronic hepatitis C, not treated. The patient states they attempted to get her approved for one medication, but was denied and so now we are working on another medication. 9. Metabolic acidosis and acute kidney injury as above.
[2018-01-11] MEDS ORDERED: Potassium Chloride 20 MEQ TAB PO SCH (08:45)
[2018-01-11] MEDS ORDERED: Epoetin (ESRD) 20,000 UNITS/ML SC SCH (08:45)
[2018-01-11 09:15] LABS: Iron 64 ug/dL (50-170); Iron Binding Capacity, Total 190 mcg/dL (265-497)
[2018-01-11] MEDS: Amlodipine 10 MG TAB PO SCH (11:42)
[2018-01-11] MEDS: Ferrous Sulfate 325 MG TAB PO SCH ×3 (11:42→17:08)
[2018-01-11] MEDS: Multivitamin W/ Minerals 1 TAB PO SCH (11:42)
[2018-01-11] MEDS: Pantoprazole 40 MG VIAL IVP SCH ×2 (11:43→22:56)
[2018-01-11] MEDS: Sodium Bicarbonate Tab 325 MG TAB PO SCH ×2 (11:43→21:02)
[2018-01-11] MEDS: Ondansetron ODT 4 MG TAB PO PRN (11:55)
[2018-01-11 12:12] LABS: BF Color Yellow; Body Fluid Source PERITONEAL FLUID; Clarity Hazy (Clear); Tube # EDTA
[2018-01-11 12:17] LABS: RBC Background Count 0.001
[2018-01-11 12:25] LABS: BF RBC Count - Manual 51 /cumm; BF WBC/Nonhematics Ct. - Manua 53 /cumm
[2018-01-11 12:56] LABS: BF Segmented Neutrophils 7 %; Cell Count Non Hematic 42 %; Lymphocytes 51 %
--- NOTE | 2018-01-11 14:33 | ULT ---
ULTRASOUND GUIDED PARACENTESIS: 01/11/2018 HISTORY: Abdominal pain. Newly developed ascites. Paracentesis was requested. TECHNIQUE: After informed consent was obtained, the patient was placed on the sonography table in the supine pos ition. Limited sonographic evaluation of the abdomen was performed, demonstrating only a very small amount of intraperitoneal free fluid. An area in the midline infraumbilical region was marked and met iculously prepped and draped in the usual sterile fashion. The skin and subcutaneous tissues were in filtrated with buffered 1% Lidocaine for local anesthesia. A small skin incision was made. Utilizing concurrent real-time ultrasound guidance, a 19 gauge echoechoeh needle with a 5 Slovak catheter w as advanced into the abdomen. After return of fluid, the sheath was advanced and the needle was natan kelvin. Approximately 600 mL of pale, yellow-colored fluid was aspirated. The introducer sheath was re moved, and hemostasis was achieved with direct pressure. A dry, sterile dressing was placed at the p uncture site. The patient tolerated the procedure well and without immediate complication. The naman ent was transported to her hospital room in stable condition. IMPRESSION: Technically successful ultrasound guided paracentesis. Fluid was sent for laboratory values. POS: [facility]
--- NOTE | 2018-01-11 15:22 | PDOC.PN ---
- Subjective Encounter Start Date: 01/11/18 Encounter Start Time: 07:40 Pt seen for followup re: hypokalemia. Denies chest pain, fevers or chills. - Objective Resuscitation Status: Resuscitation Status FULL:Full Resuscitation MAR Reviewed: Yes Vital Signs & Weight: Vital Signs (12 hours) Temp Pulse Pulse Resp BP BP Pulse Ox 01/11/18 14:50 97.8 F 90 18 151/66 H 99 01/11/18 11:38 98 F 92 18 163/72 H 99 01/11/18 09:43 97.7 F 88 18 157/67 H 99 01/11/18 08:00 97.7 F 88 18 99 01/11/18 04:18 97.4 F L 79 12 141/65 H 98 Weight Admit Weight 147 lb 3.2 oz Weight 147 lb 3.2 oz I&O: 01/10/18 01/11/18 01/12/18 06:59 06:59 06:59 Intake Total 360 0 Output Total 800 Balance -440 0 Result Diagrams: 01/11/18 05:28 01/11/18 05:28 Additional Labs: Accuchecks 01/11/18 06:09 POC Glucose 93 EKG Reviewed by me: Yes (Tele: NSR) Phys Exam - Physical Examination Constitutional: NAD HEENT: PERRLA, moist MMs, sclera anicteric, oral pharynx no lesions Neck: supple Respiratory: no wheezing, no rales, no rhonchi, clear to auscultation bilateral Cardiovascular: RRR, no rub Gastrointestinal: soft, positive bowel sounds distention; mild epigastric tenderness, no guarding or rigidity Musculoskeletal: edema present Neurological: moves all 4 limbs Psychiatric: normal affect, A&O x 3 Skin: no rash Dx/Plan (1) Hypokalemia Code(s): E87.6 - HYPOKALEMIA Status: Acute Comment: Replace potassium (2) SBP (spontaneous bacterial peritonitis) Code(s): K65.2 - SPONTANEOUS BACTERIAL PERITONITIS Status: Suspected Comment : Continue antibiotics as below. For paracentesis. GI consulted. (3) Acute on chronic renal failure Code(s): N17.9 - ACUTE KIDNEY FAILURE, UNSPECIFIED; N18.9 - CHRONIC KIDNEY DISEASE, UNSPECIFIED Status: Acute Comment: Nephrology consulted. (4) Hypertension Code(s): I10 - ESSENTIAL (PRIMARY) HYPERTENSION Status: Chronic Comment: Monitor vital signs, titrate antihypertensives as needed. (5) DM2 (diabetes mellitus, type 2) Status: Chronic Comment: Continue accuchecks, insulin sliding scale. - Plan continue antibiotics, out of bed/ambulate * . Review of Systems - Review of Systems Constitutional: negative: fever, chills, sweats, weakness, malaise Cardiovascular: negative: chest pain, palpitations, orthopnea, paroxysmal nocturnal dyspnea, edema, light headedness Gastrointestinal: Abdominal Pain. negative: Nausea, Vomiting, Diarrhea, Constipation, Melena, Hematochezia, Other Genitourinary: negative: Dysuria, Frequency, Incontinence, Hematuria, Retention Musculoskeletal: negative: Neck Pain, Shoulder Pain, Arm Pain, Back Pain, Hand Pain, Leg Pain, Foot Pain - Medications/Allergies Allergies/Adverse Reactions: Allergies Allergy/AdvReac Type Severity Reaction Status Date / Time No Known Allergies Allergy Verified 01/10/18 21:25 Medications: Current Medications Acetaminophen (Tylenol) 650 mg PO Q4H PRN PRN Reason: Headache/Fever or Pain Hydrocodone Bitart/Acetaminophen (Callahan 5/325) 1 tab PO Q4H PRN PRN Reason: Moderate Pain (4-6) Amlodipine Besylate (Norvasc) 10 mg PO DAILY [facility] Last Admin: 01/11/18 11:42 Dose: 10 mg Clonidine (Catapres) 0.1 mg PO [facility] Dextrose/Water (Dextrose 50%) 25 gm SLOW IVP PRN PRN PRN Reason: Hypoglycemia Epoetin Sherman (Procrit) 7,500 units SC Q7D [facility] Last Admin: 01/11/18 14:56 Dose: 7,500 units Ferrous Sulfate (Feosol) 325 mg PO [facility] Last Admin: 01/11/18 14:55 Dose: 325 mg Furosemide (Lasix) 40 mg SLOW IVP 0600,1400 [facility] Last Admin: 01/11/18 14:55 Dose: 40 mg Glucagon (Glucagon) 1 mg IM PRN PRN PRN Reason: Hypoglycemia Dextrose/Water (D5w) 1,000 mls @ 0 mls/hr IV .Q0M PRN; As Directed PRN Reason: Hypoglycemia Insulin Human Lispro (Humalog) 0 units SC .MILD SLIDING SCALE PRN PRN Reason: Mild Correctional Scale Iron/Minerals/Multivitamins (Theragran M) 1 tab PO DAILY [facility] Last Admin: 01/11/18 11:42 Dose: 1 tab Levothyroxine Sodium (Synthroid) 88 mcg PO 0600 [facility] Last Admin: 01/11/18 05:17 Dose: 88 mcg Ondansetron HCl (Zofran Odt) 4 mg PO Q6H PRN PRN Reason: Nausea/Vomiting Last Admin: 01/11/18 11:55 Dose: 4 mg Pantoprazole Sodium (Protonix) 40 mg IVP Q12HR [facility] Last Admin: 01/11/18 11:43 Dose: 40 mg Sodium Bicarbonate (Bicarbonate, Sodium) 650 mg PO BID [facility] Last Admin: 01/11/18 11:43 Dose: 650 mg Sodium Chloride (Flush - Normal Saline) 10 ml IVF Q12HR [facility] Last Admin: 01/11/18 11:43 Dose: 10 ml Sodium Chloride (Flush - Normal Saline) 10 ml IVF PRN PRN PRN Reason: Saline Flush
[2018-01-11] MEDS ORDERED: Furosemide 40 MG/4 ML VIAL SLOW IVP SCH (18:15)
--- NOTE | 2018-01-11 20:02 | CON ---
DATE OF CONSULTATION: 01/11/2018 GI INPATIENT CONSULTATION NOTE REQUESTING PHYSICIAN: Dr. Gutiérrez. REASON FOR CONSULTATION: Ascites and abdominal pain. HISTORY OF PRESENT ILLNESS: Annalee Morfin is a 62-year-old woman who was admitted to [facility] night with abdominal pain and was found to have new onset ascites in the context of acute on chron ic renal failure. I first met her late last year in consultation for evaluation of longstanding anem ia and also new diagnosis of hepatitis C. At that time, patient's hemoglobin was 9.1. She has been on iron supplementation for a long time as an outpatient. I performed an EGD and colonoscopy on 08/24, the EGD showed multiple fundic gland polyps, one of which was oozing some blood and was remov ed, this was a benign hyperplastic polyp. In the colonoscopy, she has had 3 small sigmoid tubular ad enomas and internal hemorrhoids. The adenomas were all removed and I recommended repeat colonoscopy at a 3-year interval. She has continued on her PPI as well as her iron supplementation. We further worked her up for consideration of treatment for hepatitis C. She was found to have genotype 1a Fibr oSure testing actually demonstrated F0, A0, highly suggestive of minimal activity and no significant liver fibrosis. This has concordant with her normal INR level and normal platelet count. We had yessica nned to get her started on hepatitis C therapy. Evidently, insurance rejected her from [place] [facility] [employer] and o office has been working on getting approval for alternative hepatitis C therapy. She presented to the hospital last night with complaints of acute worsening of intermittent chronic a bdominal pains. This pain was starting out in the epigastrium and right upper quadrant, but then sta rted to move into the lower abdomen. There was no associated nausea, vomiting, or change in bowel burleson bits. Upon evaluation, she was found to have acute worsening of renal failure with creatinine now up to 4.56. A CT scan demonstrated moderate ascites and generalized anasarca, also with some mural supa ma involving the stomach and duodenum. She is post-cholecystectomy and hysterectomy. Also, she was noted to have thickening and irregularity in the vaginal area and clinical or gynecologic exam was ad vised. She is also noted to have worsening of her chronic anemia with hemoglobin 7.7 and this declin ed marginally to 7.2 today. There has been no overt gastrointestinal bleeding. FOBT was negative. She underwent an abdominal paracentesis with 600 liters of clear yellow fluid removed and the fluid i s negative for signs of SBP with cultures pending, only 57 WBCs and 7% neutrophils. The patient repo rts that following paracentesis today. Her abdominal pain is much improved. She has been tolerating her diet. She was able to eat lunch today without any problems, no worsening in abdominal pain, no nausea or vomiting. PAST MEDICAL HISTORY: Chronic kidney disease, diabetes type 2, hypertension, asthma, cholecystectomy and hysterectomy in 1984, benign gastric polyps on EGD 08/2017, colon polyps removed on colonoscopy 08/2017. Anemia of chronic disease, chronic hepatitis C, genotype 1a, treatment na?ve, atherosclerot ic disease. ALLERGIES: No known drug allergies. OUTPATIENT MEDICATIONS: Clonidine, sodium bicarbonate, losartan, multivitamin, levothyroxine, Levemi r insulin, ferrous sulfate 325 mg t.i.d., fenofibrate 45 mg at bedtime, vitamin D2, vitamin B12, Norv asc, albuterol p.r.n. FAMILY HISTORY: Negative for gastrointestinal malignancy. SOCIAL HISTORY: No smoking, alcohol, or drug use. REVIEW OF SYSTEMS: Full review of systems including constitutional, head, eyes, ears, nose, throat, GI, , cardiovascular, respiratory, musculoskeletal, and neurologic systems is negative except as no tay in the HPI. PHYSICAL EXAMINATION: VITAL SIGNS: Temperature 98.0, pulse 92, blood pressure 157/72, 98% oxygen saturation on room air. GENERAL: Chronically ill woman lying in bed comfortably in no distress. SKIN: No jaundice, no rashes that were palpable. EYES: No scleral icterus. Extraocular movements are intact. ENT: Mucous membranes moist, no oral lesions. LYMPH: No submandibular, supraclavicular lymphadenopathy. THYROID: Nontender to palpation. HEART: Regular rate and rhythm. LUNGS: Clear to auscultation bilaterally. ABDOMEN: Mild distention, some edema of the anterior abdominal wall. Bowel sounds present, soft, mi ld tenderness to palpation in the epigastrium, but no guarding, rebound tenderness. EXTREMITIES: A 1+ bilateral lower extremity edema. VESSELS: Radial pulses 2+ bilaterally. NEUROLOGICAL: Cranial nerves II through XII intact bilaterally. No focal deficits. LABORATORY STUDIES: Hemoglobin 7.2, MCV normal at 84. WBC 5.1, platelets normal at 159. Sodium 139 , potassium 2.9, BUN 77, creatinine 4.56. INR normal at 1.1, troponin negative. Ferritin elevated a t 404, TIBC low at 190, 34% iron saturation. Lactic acid normal at 1.1. Hemoglobin A1c 8.1%. PTH e levated to 287, total bilirubin 0.3, alkaline phosphatase 172, AST 39, ALT 32, albumin 2.7. FOBT neg ative. Peritoneal fluid studies show 57 WBCs only 7% PMNs. Cultures pending. IMAGING STUDIES: CT of the abdomen and pelvis from yesterday demonstrated diffuse anasarca, moderate amount of free fluid in the abdomen, some mural edema involving the stomach and duodenum. She is st atus post cholecystectomy and hysterectomy. There is also thickening and irregularity in the vaginal area. ASSESSMENT AND PLAN: 1. Ascites, new onset. I feel this is likely secondary primarily to her worsening renal function. Recent extensive liver workup demonstrated no evidence of cirrhosis or portal hypertension with a Fib roSure score of F0 A0. No varices seen on recent EGD. She has normal INR, normal platelet count. I f this ascites were related to liver disease, it would be the first and only manifestation of this. The fluid cell counts have come back low which is not suggestive of SBP. We would recommend continue d diuretics and monitoring of renal function per Nephrology. 2. Chronic hepatitis C, genotype 1a, treatment naive. We have been seeking approval for oral therap y through my clinic. The patient will likely eventually be treated with Harvoni. Again, note there is no clear evidence of cirrhosis at this time. We will not plan for liver biopsy at this time. 3. Anemia of chronic disease. Note her FOBT is negative. She had recent upper and lower endoscopy in 08/2017 and an oozing gastric polyp was removed, but there was no other evidence of any bleeding l esion. No plan for repeat endoscopy at this time. 4. Abdominal pain, improved. 5. Abnormal CT scan of the GI tract, with possible mural edema of the stomach and duodenum. Her abd ominal discomfort is improved today following paracentesis. I think the CT findings of mural edema o f the stomach and duodenum are likely just related to her ascites. No plan for endoscopic examinatio n at this time. Continue her on her PPI. Thank you for the consultation. Please call with questions or concerns.
[2018-01-11] MEDS: cloNIDine 0.1 MG TAB PO SCH (21:01)
[2018-01-12 05:32] LABS: #Eosinphils 0.1 thou/uL (0.0-0.7); #Lymphocytes 1.4 thou/uL (1.20-3.40); #Monocytes 0.3 thou/uL (0.11-0.59); #Neutrophils 3.5 thou/uL (1.40-6.50); %Basophils 0.7 % (0.0-1.0); %Eosinophils 2.8 % (0.0-10.0); %Lymphocytes 26.3 % (21.0-51.0); %Monocytes 5.5 % (0.0-10.0); %Neutrophils 64.7 % (42.0-75.0); Hemoglobin 10.7 g/dL (12.0-16.0); Mean Corpuscular HGB CONC 34.3 g/dL (32.0-36.0); Mean Corpuscular Hemoglobin 28.2 pg (27.0-31.0); Mean Platelet Volume 8.2 fL (7.4-10.4); Platelet Count 138 thou/uL (130-400); RBC Distribution Width 13.4 % (11.5-14.5); Red Blood Cell (RBC) Count 3.81 mill/uL (4.20-5.40); White Blood Cell (WBC) Count 5.3 thou/uL (4.8-10.8)
[2018-01-12] MEDS: Furosemide 40 MG/4 ML VIAL SLOW IVP SCH ×2 (05:55→14:49)
[2018-01-12] MEDS: Levothyroxine Sodium 88 MCG TAB PO SCH (05:55)
[2018-01-12 08:30] VITALS: BMI 25.7
[2018-01-12] MEDS: Ferrous Sulfate 325 MG TAB PO SCH ×3 (08:39→17:04)
[2018-01-12] MEDS: Sodium Bicarbonate Tab 325 MG TAB PO SCH ×2 (08:40→20:54)
[2018-01-12] MEDS: Multivitamin W/ Minerals 1 TAB PO SCH (08:40)
[2018-01-12] MEDS: Pantoprazole 40 MG VIAL IVP SCH ×2 (08:40→20:54)
[2018-01-12] MEDS: Amlodipine 10 MG TAB PO SCH (08:40)
[2018-01-12 09:34] LABS: Albumin 2.4 g/dL (3.4-4.8); Anion Gap 14 mmol/L (10-20); BUN (Urea Nitrogen) 76 mg/dL (9.8-20.1); BUN/Creatinine Ratio 14.99; Calc. Creatinine Clearance 13 mL/min (70-130); Calcium 7.4 mg/dL (7.8-10.44); Carbon Dioxide 17 mmol/L (23-31); Chloride 109 mmol/L (98-107); Estimated GFR-MDRD 9; Glucose 143 mg/dL (80-115); Phosphorus 5.2 mg/dL (2.3-4.7); Potassium 3.7 mmol/L (3.5-5.1); Sodium 136 mmol/L (136-145)
[2018-01-12] MEDS: HumaLOG 300 UNITS/3 ML VIAL SC PRN ×2 (11:55→22:13)
--- NOTE | 2018-01-12 12:59 | ULT ---
ULTRASOUND DOPPLER DUPLEX BILATERAL UPPER EXTREMITY VENOUS MAPPING: Date: 01/12/18 HISTORY: 62-year-old female with chronic renal failure requiring hemodialysis access. Planning study. TECHNIQUE: Walker scale, color flow, and spectral analysis of bilateral upper extremity veins. FINDINGS: Calibers are given in mm: RIGHT: Brachial Artery: 3.5 Radial Artery: 1.0 Ulnar Artery: 1.5 Cephalic Vein: Proximal arm: 1.5 Mid arm: 1.5 Distal arm: 1.0 Antecubital: 3.0 Proximal forearm: 1.0 Mid forearm: 1.0 Distal forearm: 0.5 Basilic Vein: Proximal arm: 4.5 Mid arm: 2.5 Distal arm: 2.5 Antecubital: 3.0 Proximal forearm: 1.0 Mid forearm: 1.5 Distal forearm: 1.0 LEFT: Brachial Artery: 3.0 Radial Artery: 1.0 Ulnar Artery: 1.5 Cephalic Vein: Proximal arm: 2.5 Mid arm: 1.5 Distal arm: 1.5 Antecubital: 1.5 Proximal forearm: 1.5 Mid forearm: 2.0 Distal forearm: Occluded Basilic Vein: Proximal arm: 1.5 Mid arm: 2.0 Distal arm: 2.0 Antecubital: 1.0 Proximal forearm: 1.0 Mid forearm: 1.0 Distal forearm: 1.0 There is soft tissue edema in the left arm, especially around the basilic vein. IMPRESSION: 1. None of the veins are consistently greater than 3 mm in caliber. 2. Soft tissue edema in the left arm. POS: [facility]
[2018-01-12] MEDS ORDERED: CEFAZOLIN/Water 2 GM/20 ML SYRINGE SLOW IVP SCH (13:45)
--- NOTE | 2018-01-12 14:38 | PDOC.PN ---
- Subjective Encounter Start Date: 01/12/18 Encounter Start Time: 08:00 Pt seen for followup re: acute on chronic renal failure. Reports feeling better after paracentesis. No nausea or vomiting. - Objective Resuscitation Status: Resuscitation Status FULL:Full Resuscitation MAR Reviewed: Yes Vital Signs & Weight: Vital Signs (12 hours) Temp Pulse Resp BP Pulse Ox 01/12/18 11:46 98 F 87 18 169/81 H 98 01/12/18 08:05 98 F 78 18 158/74 H 95 01/12/18 08:00 98 F 78 18 95 01/12/18 04:00 97.9 F 78 16 171/77 H 98 Weight Admit Weight 147 lb 3.2 oz Weight 150 lb I&O: 01/11/18 01/12/18 01/13/18 06:59 06:59 06:59 Intake Total 360 1000 Output Total 800 800 Balance -440 200 Result Diagrams: 01/12/18 05:11 01/12/18 05:11 Additional Labs: Accuchecks 01/11/18 01/11/18 20:11 15:50 POC Glucose 177 H 154 H EKG Reviewed by me: Yes (Tele; NSR) Phys Exam - Physical Examination Constitutional: NAD HEENT: PERRLA, moist MMs, sclera anicteric, oral pharynx no lesions Neck: no nodes, no JVD, supple, full ROM Respiratory: no wheezing, no rales, no rhonchi, clear to auscultation bilateral Cardiovascular: RRR, no rub Gastrointestinal: soft, non-tender, positive bowel sounds distention Musculoskeletal: pulses present, edema present Neurological: moves all 4 limbs Psychiatric: normal affect, A&O x 3 Dx/Plan (1) Acute on chronic renal failure Code(s): N17.9 - ACUTE KIDNEY FAILURE, UNSPECIFIED; N18.9 - CHRONIC KIDNEY DISEASE, UNSPECIFIED Status: Acute Comment: discussed with nephrology, plan to initiate dialysis during this hospitalization (2) Hypertension Code(s): I10 - ESSENTIAL (PRIMARY) HYPERTENSION Status: Chronic Comment: titrate antihypertensives as needed. (3) DM2 (diabetes mellitus, type 2) Status: Chronic Comment: accuchecks, insulin sliding scale. (4) Hypokalemia Code(s): E87.6 - HYPOKALEMIA Status: Resolved (5) SBP (spontaneous bacterial peritonitis) Code(s): K65.2 - SPONTANEOUS BACTERIAL PERITONITIS Status: Ruled-out Comment : Ruled out. - Plan * . Review of Systems - Review of Systems Constitutional: negative: fever, chills, sweats, weakness, malaise Respiratory: negative: Cough, Dry, Shortness of Breath, Hemoptysis, SOB with Excertion, Pleuritic Pain, Sputum, Wheezing Cardiovascular: negative: chest pain, palpitations, orthopnea, paroxysmal nocturnal dyspnea, edema, light headedness, other Gastrointestinal: negative: Nausea, Vomiting, Abdominal Pain, Diarrhea, Constipation, Melena, Hematochezia Genitourinary: negative: Dysuria, Frequency, Incontinence, Hematuria, Retention - Medications/Allergies Allergies/Adverse Reactions: Allergies Allergy/AdvReac Type Severity Reaction Status Date / Time No Known Allergies Allergy Verified 01/10/18 21:25 Medications: Current Medications Acetaminophen (Tylenol) 650 mg PO Q4H PRN PRN Reason: Headache/Fever or Pain Hydrocodone Bitart/Acetaminophen (Vanlue 5/325) 1 tab PO Q4H PRN PRN Reason: Moderate Pain (4-6) Amlodipine Besylate (Norvasc) 10 mg PO DAILY [facility] Last Admin: 01/12/18 08:40 Dose: 10 mg Cefazolin Sodium (Ancef) 2 gm SLOW IVP WILLCALL [facility] Clonidine (Catapres) 0.1 mg PO HS [facility] Last Admin: 01/11/18 21:01 Dose: 0.1 mg Dextrose/Water (Dextrose 50%) 25 gm SLOW IVP PRN PRN PRN Reason: Hypoglycemia Epoetin Sherman (Procrit) 7,500 units SC Q7D [facility] Last Admin: 01/11/18 14:56 Dose: 7,500 units Ferrous Sulfate (Feosol) 325 mg PO TID-WM [facility] Last Admin: 01/12/18 11:48 Dose: 325 mg Furosemide (Lasix) 40 mg SLOW IVP 0600,1400 [facility] Last Admin: 01/12/18 05:55 Dose: 40 mg Glucagon (Glucagon) 1 mg IM PRN PRN PRN Reason: Hypoglycemia Dextrose/Water (D5w) 1,000 mls @ 0 mls/hr IV .Q0M PRN; As Directed PRN Reason: Hypoglycemia Insulin Human Lispro (Humalog) 0 units SC .MILD SLIDING SCALE PRN PRN Reason: Mild Correctional Scale Last Admin: 01/12/18 11:55 Dose: 3 unit Iron/Minerals/Multivitamins (Theragran M) 1 tab PO DAILY [facility] Last Admin: 01/12/18 08:40 Dose: 1 tab Levothyroxine Sodium (Synthroid) 88 mcg PO 0600 [facility] Last Admin: 01/12/18 05:55 Dose: 88 mcg Ondansetron HCl (Zofran Odt) 4 mg PO Q6H PRN PRN Reason: Nausea/Vomiting Last Admin: 01/11/18 11:55 Dose: 4 mg Pantoprazole Sodium (Protonix) 40 mg IVP Q12HR [facility] Last Admin: 01/12/18 08:40 Dose: 40 mg Sodium Bicarbonate (Bicarbonate, Sodium) 650 mg PO BID [facility] Last Admin: 01/12/18 08:40 Dose: 650 mg Sodium Chloride (Flush - Normal Saline) 10 ml IVF Q12HR [facility] Last Admin: 01/12/18 08:40 Dose: 10 ml Sodium Chloride (Flush - Normal Saline) 10 ml IVF PRN PRN PRN Reason: Saline Flush
--- NOTE | 2018-01-12 15:10 | PRG ---
DATE OF SERVICE: 01/12/2018 GI INPATIENT DAILY PROGRESS NOTE SUBJECTIVE: Ms. Morfin is feeling alright. No further abdominal pain. She is feeling hungry and to lerating her diet. Renal function continued to worsen and she is planning to get started with dialys is. She had marking ultrasound earlier. OBJECTIVE: VITAL SIGNS: Temperature 98.0, pulse 87, blood pressure 169/81, 98% oxygen saturation on room air. GENERAL: No acute distress. HEART: Regular rate and rhythm. LUNGS: Clear to auscultation bilaterally. ABDOMEN: Soft and nontender to palpation throughout, nondistended. EXTREMITIES: 1+ bilateral lower extremity edema. LABORATORY STUDIES: WBC 5.3, hemoglobin 10.7, and platelets 138. Sodium 136, potassium 3.7, BUN up to 76, creatinine up to 5.07, glucose 143. ASSESSMENT AND PLAN: 1. Ascites. Fluid studies are negative for spontaneous bacterial peritonitis. 2. Acute on chronic renal failure. The patient has made the decision to initiate dialysis. 3. Chronic hepatitis C. This is genotype 1A. Recent extensive liver workup demonstrated no clear e vidence of cirrhosis. We will still work on getting her hepatitis C treated at some point in the nex t few months on an outpatient basis. 4. Anemia of chronic disease. Hemoglobin came up nicely to 10.7 with transfusion. 5. Upper abdominal pain, resolved. GI will sign off at this time, but please call back anytime with questions or concerns. Dr. Graff is covering for GI this weekend. ADDENDUM: Abnormal CT scan of the pelvis. I do note that her admission CT scan demonstrated a soft tissue irregularity in the vaginal area and further examination or consultation was recommended. [facility] gynecology consultation, be obtained if deemed appropriate by the primary service for inpatien t evaluation. Otherwise, we would recommend assuring that this gets followed up soon on an outpatien t basis.
[2018-01-12] MEDS ORDERED: Clopidogrel Bisulfate 75 MG TAB ONE (16:41)
--- NOTE | 2018-01-12 18:25 | PRG ---
DATE OF SERVICE: 01/12/2018 SUBJECTIVE: The patient is seen and examined, seems to be feeling better. PHYSICAL EXAMINATION: VITAL SIGNS: Afebrile, temperature 98, pulse 82, respiratory rate of 18, O2 sat 95% with blood press ure 168/76. HEENT: Unremarkable. Moist oral mucosa. No conjunctival injection or icterus. NECK: Supple. CARDIOVASCULAR: First and second heart sounds were heard. RESPIRATORY: Clear to auscultation. DIGESTIVE: Revealed a benign abdomen with positive bowel sounds. EXTREMITIES: Showed improved peripheral edema. NEUROLOGIC: Alert, oriented. No lateralizing signs. LYMPHATICS: No peripheral lymphadenopathy. LABORATORY INVESTIGATION: Showed hemoglobin of 10.7, status post blood transfusion. Chemistry showe d bicarbonate of 17, BUN of 76 with a creatinine of 5.07, calcium of 7.4 with phosphorus of 5.2, magn esium 1.4. PTH of 287. IMPRESSION: 1. Advanced chronic kidney disease stage 5. 2. Anemia of chronic kidney disease. 3. Hypertension. 4. Hyperparathyroidism with hyperphosphatemia. PLAN: 1. The patient is at a point that she is going to require renal replacement therapy (hemodialysis). Therefore, we will consult the surgeons to arrange for access creation. 2. Patient prefers peritoneal dialysis. Therefore, this will be part of the access been requested f or. 3. Vein mapping to evaluate the patient's vessels. 4. Continue erythropoiesis stimulating agents. 5. Further management to be dependent on the clinical course.
[2018-01-12] MEDS: cloNIDine 0.1 MG TAB PO SCH (20:53)
[2018-01-13] MEDS: Levothyroxine Sodium 88 MCG TAB PO SCH (06:15)
[2018-01-13] MEDS: Furosemide 40 MG/4 ML VIAL SLOW IVP SCH ×2 (06:16→14:02)
[2018-01-13] MEDS: Ferrous Sulfate 325 MG TAB PO SCH ×3 (09:04→17:24)
[2018-01-13] MEDS: Multivitamin W/ Minerals 1 TAB PO SCH (09:04)
[2018-01-13] MEDS: Sodium Bicarbonate Tab 325 MG TAB PO SCH ×2 (09:04→20:28)
[2018-01-13] MEDS: Amlodipine 10 MG TAB PO SCH (09:04)
[2018-01-13] MEDS: Pantoprazole 40 MG VIAL IVP SCH ×2 (09:05→20:28)
--- NOTE | 2018-01-13 14:24 | PDOC.PN ---
- Subjective Encounter Start Date: 01/13/18 Encounter Start Time: 14:22 Ms. Morfin was seen today in follow-up of new onset ESRD. She does not have any complaints today. The abdominal pain has resolved. - Objective Resuscitation Status: Resuscitation Status FULL:Full Resuscitation MAR Reviewed: Yes Vital Signs & Weight: Vital Signs (12 hours) Temp Pulse Resp BP BP Pulse Ox 01/13/18 11:33 98 F 86 18 134/85 99 01/13/18 09:04 83 156/86 H 01/13/18 08:00 98 F 86 18 156/85 H 97 01/13/18 04:00 98.3 F 74 18 138/78 97 Weight Admit Weight 147 lb 3.2 oz Weight 150 lb I&O: 01/12/18 01/13/18 01/14/18 06:59 06:59 06:59 Intake Total 1000 480 Output Total 800 Balance 200 480 Result Diagrams: 01/12/18 05:11 01/12/18 05:11 Additional Labs: Accuchecks 01/13/18 01/13/18 01/12/18 11:05 04:24 21:42 POC Glucose 148 H 97 231 H 01/12/18 01/12/18 01/12/18 16:55 10:23 05:31 POC Glucose 150 H 221 H 138 H Phys Exam - Physical Examination HEENT: PERRLA Respiratory: no wheezing, no rales, no rhonchi, clear to auscultation bilateral Cardiovascular: RRR, no significant murmur, no rub Gastrointestinal: soft, non-tender, no distention, positive bowel sounds Musculoskeletal: edema present trace pedal edema Dx/Plan (1) End stage renal disease Code(s): N18.6 - END STAGE RENAL DISEASE Status: Acute (2) Diabetes mellitus type 2 in obese Code(s): E11.69 - TYPE 2 DIABETES MELLITUS WITH OTHER SPECIFIED COMPLICATION; E66.9 - OBESITY, UNSPECIFIED Status: Chronic (3) Hypertension Code(s): I10 - ESSENTIAL (PRIMARY) HYPERTENSION Status: Chronic Comment: titrate antihypertensives as needed. - Plan * Abdominal pain has resolved, and was likely due to Ascites * ESRD- she is being initiated to dialysis, which she would like Peritoneal Dialysis * HTN- blood pressure is stable * DM- blood glucose is stable * Hepatitis- C- this will be treated as Outpatient * Vaginal wall thickening- will need Outpatient REGULATORY COMPLIANCE DIRECTOR evaluation.
[2018-01-13] MEDS: HumaLOG 300 UNITS/3 ML VIAL SC PRN ×2 (17:25→20:30)
[2018-01-13] MEDS: cloNIDine 0.1 MG TAB PO SCH (20:28)
--- NOTE | 2018-01-13 22:50 | CON ---
DATE OF CONSULTATION: 01/12/2018 REASON FOR CONSULTATION: Need for dialysis access. HISTORY: Ms. Morfin is a 62-year-old woman who was admitted to the hospital with abdominal pain and found to have new-onset ascites. She has been worked up by Gastroenterology for anemia and newly temi gnosed hepatitis C and no evidence of cirrhosis was found. She did undergo EGD and colonoscopy witho ut any signs of portal gastropathy or other signs of portal hypertension identified. She underwent p aracentesis with significant increase in her abdominal discomfort. She denies any changes in her bow el habits. She denies any fevers or chills and cultures of the peritoneal fluid have not shown any g rowth to date. She denies shortness of breath or other complaints and Dr. Oreilly does not feel t hat she will require dialysis urgently, but does feel that she has progressed to late-stage renal erika lure and will require dialysis in the near future. She prefers peritoneal dialysis after discussion with him, but he would like to have a fistula placed as well as a backup option. She does have a his tory of ventral hernia, which has been repaired in the past, although she is unsure whether mesh was used by her report, this was an open repair. PAST MEDICAL HISTORY: Chronic renal failure progressing to need for dialysis in the near future, typ e 2 diabetes, hypertension, asthma, hepatitis C, and anemia of chronic disease. PAST SURGICAL HISTORY: Open cholecystectomy, hysterectomy, EGD, and colonoscopy. ALLERGIES: No known drug allergies. OUTPATIENT MEDICATIONS: Include clonidine, bicarbonate, losartan, multivitamin, Synthroid, Levemir i nsulin, iron, fenofibrate, vitamin D, vitamin B12, Norvasc, and p.r.n. albuterol. INPATIENT MEDICATIONS: Amlodipine, clonidine, sliding scale insulin, Procrit, iron, Lasix, multivita min, Synthroid, Protonix, bicarbonate, and multiple p.r.n. FAMILY HISTORY: Noncontributory. SOCIAL HISTORY: She does not have any history of alcohol, drug, or tobacco use. REVIEW OF SYSTEMS: Ten-system review of systems is negative except per HPI. PHYSICAL EXAMINATION: VITAL SIGNS: Patient is afebrile throughout her hospital course, moderate-intermittent hypertension, heart rate in the 70s-80s, and saturating in the high 90s on room air. GENERAL: Reveals a pleasant woman in no acute distress. HEENT: Unremarkable. NECK: Supple without lymphadenopathy or thyroid nodules. No jugular venous distention is noted. HEART: Regular in its rate and rhythm without murmurs, rubs, or gallops. LUNGS: Clear to auscultation bilaterally, although breath sounds are somewhat diminished in the base s. I do not appreciate any crackles or wheezes currently. ABDOMEN: Soft, nontender, and nondistended. She does have minimal tenderness with palpation of the lateral third of her subcostal incision, but I cannot feel a definite hernia in this location nor can I definitely feel an umbilical hernia. No palpable masses are appreciated. EXTREMITIES: Warm and well perfused with minimal ankle edema. She does have some edema in her left forearm above the site of an IV and does not currently being used. No significant edema on the other arm, however. Antecubital veins are somewhat small to palpation, and I cannot appreciate forearm ve ins on either side of any significant size. On Jonathan's testing, she has slightly ulnar dominant fill ing bilaterally. NEUROLOGIC: No focal defects. PSYCHIATRIC: Alert, oriented, and appropriate. LABORATORY DATA: White count is normal, hematocrit 31.3, platelets 138. PTT is 41. INR 1.1, BUN an d creatinine at 76 and 5.07, which are up from her baseline. Bicarbonate is 42 and phosphorus 5.2. On her arrival in the hospital, AST is slightly elevated at 39 and alkaline phosphatase is slightly e levated at 172, but bilirubin was normal. Albumin was low at 2.7. IMAGING: CT images are reviewed and I agreed with written report. She has generalized anasarca and ascites. In addition, patient appears to have a fascial defect on the right subcostal area with fat only protruding through the defect and may also have a small fat containing umbilical hernia at the b ase of her umbilicus. Vein mapping shows no significant forearm veins on the right, but a good sized upper arm basilic vein . On the left, her cephalic vein on the forearm appears to be good caliber into the distal forearm a t which it is occluded. She does have an IV at this site. Her basilic vein is smaller than on the r ight, but her upper arm cephalic vein is larger. ASSESSMENT: Chronic renal failure approaching need for dialysis. Her senior operator recommended a per itoneal dialysis catheter to be placed as well as a fistula as a backup option. She does not feel th at she will require immediate dialysis in the next month or so and has not required a tunneled-hemodi alysis catheter. Patient does on CT scan have a couple of small ventral hernias, which I have recomm ended to be repaired under the same anesthesia at the same time that her peritoneal dialysis catheter s placed, as we would expect these defects to become more problematic with ongoing peritoneal dialysi s. I have discussed the procedure of peritoneal dialysis catheter placement and laparoscopic ventral hernia repair with mesh with the patient and she understands and accepts the inherent risks of these procedures. These include but are not limited to bleeding, infection, risks of anesthesia, damage t o internal structures such as bowel, and hernia recurrence and enlargement. I have also discussed fi stula placement with her. I have asked that the peripheral IV in her left forearm be removed. Hopef ully, this will allow the left forearm cephalic vein to be usable for dialysis, but is not the upper arm cephalic vein may be adequate. The inherent risks of fistula placement were also discussed with the patient. These include, but are not limited to bleeding, infection, risks of anesthesia, need fu rther procedures to obtain or maintain patency of the fistula, failure of the fistula to develop and arterial steal, which can cause ischemic damage to the hand, which can be permanent. She understands and accepts these risks and wishes to proceed. If her condition clinically worsens between now and the time of her surgery, then tunneled hemodialysis catheter placement may be necessary as well. The patient had eaten breakfast on Monday morning, so has been placed on a schedule for Monday.
[2018-01-14] MEDS: Levothyroxine Sodium 88 MCG TAB PO SCH (05:49)
[2018-01-14] MEDS: Furosemide 40 MG/4 ML VIAL SLOW IVP SCH ×2 (05:50→13:27)
[2018-01-14] MEDS: Sodium Bicarbonate Tab 325 MG TAB PO SCH ×2 (08:38→20:21)
[2018-01-14] MEDS: Ferrous Sulfate 325 MG TAB PO SCH ×3 (08:39→17:45)
[2018-01-14] MEDS: Multivitamin W/ Minerals 1 TAB PO SCH (08:39)
[2018-01-14] MEDS: Pantoprazole 40 MG VIAL IVP SCH ×2 (08:39→20:21)
[2018-01-14] MEDS: Amlodipine 10 MG TAB PO SCH (08:39)
[2018-01-14] MEDS: HumaLOG 300 UNITS/3 ML VIAL SC PRN ×3 (12:42→20:22)
--- NOTE | 2018-01-14 15:10 | PDOC.PN ---
- Subjective Encounter Start Date: 01/14/18 Encounter Start Time: 15:08 Ms. Morfin was seen today in follow-up. She does not have any complaints. - Objective Resuscitation Status: Resuscitation Status FULL:Full Resuscitation MAR Reviewed: Yes Vital Signs & Weight: Vital Signs (12 hours) Temp Pulse Resp BP BP Pulse Ox 01/14/18 08:39 75 157/86 H 01/14/18 08:00 97.6 F 75 16 157/86 H 98 Weight Admit Weight 147 lb 3.2 oz Weight 150 lb I&O: 01/13/18 01/14/18 01/15/18 06:59 06:59 06:59 Intake Total 1180 Balance 1180 Result Diagrams: 01/12/18 05:11 01/12/18 05:11 Additional Labs: Accuchecks 01/14/18 01/14/18 01/13/18 11:11 04:45 19:48 POC Glucose 159 H 116 H 225 H 01/13/18 15:45 POC Glucose 239 H Phys Exam - Physical Examination HEENT: PERRLA Respiratory: no wheezing, no rales, no rhonchi, clear to auscultation bilateral Cardiovascular: RRR, no significant murmur, no rub Gastrointestinal: soft, non-tender, positive bowel sounds Musculoskeletal: no edema Dx/Plan (1) End stage renal disease Code(s): N18.6 - END STAGE RENAL DISEASE Status: Acute (2) Diabetes mellitus type 2 in obese Code(s): E11.69 - TYPE 2 DIABETES MELLITUS WITH OTHER SPECIFIED COMPLICATION; E66.9 - OBESITY, UNSPECIFIED Status: Chronic (3) Hypertension Code(s): I10 - ESSENTIAL (PRIMARY) HYPERTENSION Status: Chronic Comment: titrate antihypertensives as needed. - Plan * ESRD- patient now requires dialysis * plan is to have PD catheter placed as well as AV fistula * She will also have a Ventral Hernia repaired as well * DM- blood glucose is stable * HTN- blood pressure is stable.
[2018-01-14] MEDS: cloNIDine 0.1 MG TAB PO SCH (20:21)
[2018-01-15] MEDS: Furosemide 40 MG/4 ML VIAL SLOW IVP SCH ×2 (02:30→13:50)
[2018-01-15] MEDS: Levothyroxine Sodium 88 MCG TAB PO SCH (02:31)
[2018-01-15 06:02] LABS: Albumin 2.3 g/dL (3.4-4.8); Anion Gap 11 mmol/L (10-20); BUN (Urea Nitrogen) 80 mg/dL (9.8-20.1); BUN/Creatinine Ratio 15.18; Calc. Creatinine Clearance 12 mL/min (70-130); Calcium 7.7 mg/dL (7.8-10.44); Carbon Dioxide 21 mmol/L (23-31); Chloride 105 mmol/L (98-107); Estimated GFR-MDRD 8; Glucose 81 mg/dL (80-115); Phosphorus 4.5 mg/dL (2.3-4.7); Potassium 3.4 mmol/L (3.5-5.1); Sodium 134 mmol/L (136-145)
[2018-01-15] MEDS: Ferrous Sulfate 325 MG TAB PO SCH ×3 (09:00→16:22)
[2018-01-15] MEDS: Multivitamin W/ Minerals 1 TAB PO SCH (09:00)
[2018-01-15] MEDS: Amlodipine 10 MG TAB PO SCH (09:00)
[2018-01-15] MEDS: Pantoprazole 40 MG VIAL IVP SCH ×2 (09:01→20:40)
[2018-01-15] MEDS: Sodium Bicarbonate Tab 325 MG TAB PO SCH ×2 (09:01→20:41)
--- NOTE | 2018-01-15 11:08 | PDOC.EVN ---
Event Note - Event Note Event Note: I spoke with the patient this morning regarding Code status. She has an existing Out of Hospital DNR. She says after her surgery she would like to return to DNR status.
--- NOTE | 2018-01-15 11:11 | PDOC.PN ---
- Subjective Encounter Start Date: 01/15/18 Encounter Start Time: 11:10 Ma. Morfin was seen today in follow-up. She does not have any complaints this morning. - Objective Resuscitation Status: Resuscitation Status DNR:Do Not Resuscitate MAR Reviewed: Yes Vital Signs & Weight: Vital Signs (12 hours) Temp Pulse Resp BP Pulse Ox 01/15/18 09:00 82 01/15/18 08:00 98.2 F 82 16 01/15/18 07:56 98.2 F 82 16 163/84 H 97 01/15/18 07:42 98.0 F 80 16 151/86 H 98 Weight Admit Weight 147 lb 3.2 oz Weight 150 lb I&O: 01/14/18 01/15/18 01/16/18 06:59 06:59 06:59 Intake Total 1180 1270 Balance 1180 1270 Result Diagrams: 01/12/18 05:11 01/15/18 05:19 Additional Labs: Accuchecks 01/15/18 01/14/18 01/14/18 03:40 19:57 16:24 POC Glucose 115 H 191 H 241 H 01/14/18 11:11 POC Glucose 159 H Phys Exam - Physical Examination HEENT: PERRLA Respiratory: no wheezing, no rales, no rhonchi, clear to auscultation bilateral Cardiovascular: RRR, no significant murmur, no rub Gastrointestinal: soft, non-tender, positive bowel sounds Musculoskeletal: no edema Dx/Plan (1) End stage renal disease Code(s): N18.6 - END STAGE RENAL DISEASE Status: Acute (2) Diabetes mellitus type 2 in obese Code(s): E11.69 - TYPE 2 DIABETES MELLITUS WITH OTHER SPECIFIED COMPLICATION; E66.9 - OBESITY, UNSPECIFIED Status: Chronic (3) Hypertension Code(s): I10 - ESSENTIAL (PRIMARY) HYPERTENSION Status: Chronic Comment: titrate antihypertensives as needed. - Plan * Newly diagnosed ESRD- she is being prepared for PD * She will go for PD catheter placement as well as AV- fistula, and ventral hernia repair * Code status was addressed, and she will be DNR as requested following surgery * DM- blood glucose is stable. * HTN- blood pressure is stable
[2018-01-15] MEDS ORDERED: Ioversol 68 % 50 ML VIAL ONE (11:46)
[2018-01-15] MEDS ORDERED: Protamine Sulfate 50 MG/5 ML VIAL ONE (11:46)
[2018-01-15] MEDS ORDERED: Heparin 5,000 UNITS/ML VIAL ONE (11:46)
[2018-01-15] MEDS ORDERED: Fentanyl 250 MCG/5 ML VIAL ONE (11:54)
[2018-01-15] MEDS ORDERED: CEFAZOLIN/Water 2 GM/20 ML SYRINGE ONE (12:13)
[2018-01-15] MEDS ORDERED: Bupivacaine/Epinephrine 0.25% 30 ML VIAL ONE (12:42)
[2018-01-15] MEDS ORDERED: Heparin 10,000 UNITS/1 ML VIAL ONE (12:43)
[2018-01-15] MEDS ORDERED: Ondansetron HCl/PF 4 MG/2 ML Vial IVP PRN (16:11)
[2018-01-15] MEDS ORDERED: Ondansetron HCl/PF 4 MG/2 ML Vial ONE (16:16)
[2018-01-15] MEDS ORDERED: Glycopyrrolate 0.2 MG/ML 5 ML SYRINGE ONE (16:16)
[2018-01-15] MEDS ORDERED: Dexamethasone 20 MG/5 ML VIAL ONE (16:16)
[2018-01-15] MEDS ORDERED: Heparin 10,000 UNITS/ 10 ML VIAL ONE (16:16)
[2018-01-15] MEDS ORDERED: Propofol 200 MG/20 ML VIAL ONE (16:16)
[2018-01-15] MEDS ORDERED: Lidocaine 1% PF 5 ML VIAL ONE (16:16)
[2018-01-15] MEDS ORDERED: Fentanyl 100 MCG/2 ML VIAL ONE (16:58)
[2018-01-15] MEDS: Ondansetron ODT 4 MG TAB PO PRN (17:43)
--- NOTE | 2018-01-15 19:18 | PRG ---
DATE OF PROCEDURE: 01/15/2018 SUBJECTIVE: Patient is seen and examined with surgery and not able to be followed. PHYSICAL EXAMINATION: VITAL SIGNS: Afebrile, temperature 98.2, pulse 82, respiratory rate 16, O2 sat 97% on room, blood pr essure 116/84. HEENT: Unremarkable. CARDIOVASCULAR: First and second heart sounds were heard. RESPIRATORY: Clear to auscultation. DIGESTIVE: Revealed a benign abdomen. EXTREMITIES: Showed mild peripheral edema. SKIN: No new gross rash. LYMPHATICS: No peripheral lymphadenopathy. LABORATORY INVESTIGATION: Showed creatinine of 5.27, BUN of 80, bicarbonate 21, potassium 3.4, sodiu m 134. IMPRESSION: 1. Advanced chronic kidney disease/end-stage renal disease. 2. Hypokalemia with mild hyponatremia. 3. Metabolic acidosis. PLAN: 1. The patient to secure dialysis access today and aware of AV fistula creation as well as peritonea l dialysis placement. Patient wants home peritoneal dialysis, does not want hemodialysis. We will f lida outpatient peritoneal dialysis treatment initiation. 2. Further management will be dependent on a clinical course.
[2018-01-15] MEDS: cloNIDine 0.1 MG TAB PO SCH (20:40)
[2018-01-15] MEDS: HYDROcodone/Acetaminophen 5/325 mg Tablet PO PRN (20:44)
[2018-01-16 05:31] LABS: HBSAB Concentration 0.15 mIU/mL; HBSAg Index 0.14 S/CO (0-0.99); Hep B Core Total Ab Non-Reactive (NonReactive); Hep B Core Total Index 0.16 S/CO (0-0.79); Hep B Surf AB Non-Reactive (NonReactive); Hep B Surf Ag Non-Reactive S/CO (NonReactive)
[2018-01-16] MEDS: Furosemide 40 MG/4 ML VIAL SLOW IVP SCH ×2 (05:41→15:10)
[2018-01-16] MEDS: Levothyroxine Sodium 88 MCG TAB PO SCH (05:41)
[2018-01-16] MEDS: HYDROcodone/Acetaminophen 5/325 mg Tablet PO PRN ×4 (05:42→20:23)
[2018-01-16 06:32] LABS: Hep C IgG Ab Reflex HepC Qnt (NonReactive); Hep C Index 10.28 S/CO (0-0.79)
[2018-01-16] MEDS: Ferrous Sulfate 325 MG TAB PO SCH ×3 (08:39→16:19)
[2018-01-16] MEDS: Multivitamin W/ Minerals 1 TAB PO SCH (08:39)
[2018-01-16] MEDS: Amlodipine 10 MG TAB PO SCH (08:39)
[2018-01-16] MEDS: Pantoprazole 40 MG VIAL IVP SCH ×2 (08:40→20:12)
[2018-01-16] MEDS: Sodium Bicarbonate Tab 325 MG TAB PO SCH ×2 (09:07→20:12)
[2018-01-16] MEDS ORDERED: Morphine 5 MG/ML SYRINGE SLOW IVP PRN (09:14)
[2018-01-16] MEDS ORDERED: Morphine 5 MG/ML SYRINGE SLOW IVP SCH (09:30)
--- NOTE | 2018-01-16 10:07 | PRG ---
DATE OF SERVICE: 01/16/2018 SUBJECTIVE: The patient is seen and examined today. Complaining of pain at surgical site. PHYSICAL EXAMINATION: VITAL SIGNS: The patient is noted with following vital signs, afebrile, temperature 98.3, pulse 84, respiratory rate 20, and blood pressure 171/93. HEENT: Unremarkable. CARDIOVASCULAR SYSTEM: First and second heart sounds were heard. RESPIRATORY SYSTEM: Clear to auscultation. DIGESTIVE SYSTEM: Revealed a benign abdomen with positive bowel sounds. EXTREMITIES: No peripheral edema. SKIN: No new gross rash. LYMPHATICS: No peripheral lymphadenopathy. IMPRESSION: 1. End-stage renal disease, status post peritoneal dialysis and AV fistula placement yesterday. 2. Pain status post surgical treatment. 3. Anemia of chronic kidney disease. PLAN: 1. Pain management. 2. Outpatient dialysis placement, this might have been consulted. 3. Given the ventral hernia repair, we will likely delay the initiation of peritoneal dialysis jamaal ahmadi when this side is healed. 4. Further management will be dependent on the clinical course.
--- NOTE | 2018-01-16 13:33 | PDOC.PN ---
- Subjective Encounter Start Date: 01/16/18 Encounter Start Time: 13:32 Subjective: feels ok - Objective Resuscitation Status: Resuscitation Status DNR:Do Not Resuscitate MAR Reviewed: Yes Vital Signs & Weight: Vital Signs (12 hours) Temp Pulse Resp BP Pulse Ox 01/16/18 11:28 97.5 F L 85 16 131/70 94 L 01/16/18 08:39 84 01/16/18 07:55 98.3 F 84 20 01/16/18 07:29 98.3 F 84 20 171/93 H 98 Weight Admit Weight 147 lb 3.2 oz Weight 150 lb I&O: 01/15/18 01/16/18 01/17/18 06:59 06:59 06:59 Intake Total 1270 100 Balance 1270 100 Result Diagrams: 01/12/18 05:11 01/15/18 05:19 Additional Labs: Accuchecks 01/16/18 01/15/18 01/15/18 04:21 19:40 17:56 POC Glucose 140 H 218 H 180 H Phys Exam - Physical Examination Neck: no JVD Respiratory: clear to auscultation bilateral Cardiovascular: RRR, no significant murmur Gastrointestinal: soft, positive bowel sounds minimal tenderness to palpation Musculoskeletal: edema present Dx/Plan (1) Acute on chronic renal failure Code(s): N17.9 - ACUTE KIDNEY FAILURE, UNSPECIFIED; N18.9 - CHRONIC KIDNEY DISEASE, UNSPECIFIED Status: Acute Qualifiers: Chronic kidney disease stage: stage 5, not on chronic dialysis Comment: discussed with nephrology, plan to initiate dialysis during this hospitalization (2) End stage renal disease Code(s): N18.6 - END STAGE RENAL DISEASE Status: Acute (3) DM2 (diabetes mellitus, type 2) Status: Chronic Qualifiers: Diabetes mellitus custodial insulin use: without custodial use Diabetes mellitus complication status: with kidney complications Chronic kidney disease stage: stage 5, not on chronic dialysis Comment: accuchecks, insulin sliding scale. (4) SBP (spontaneous bacterial peritonitis) Code(s): K65.2 - SPONTANEOUS BACTERIAL PERITONITIS Status: Ruled-out Comment : Ruled out. (5) Diabetes mellitus type 2 in obese Code(s): E11.69 - TYPE 2 DIABETES MELLITUS WITH OTHER SPECIFIED COMPLICATION; E66.9 - OBESITY, UNSPECIFIED Status: Chronic (6) Hypertension Code(s): I10 - ESSENTIAL (PRIMARY) HYPERTENSION Status: Chronic Comment: titrate antihypertensives as needed. - Plan on HD per renal -: PD cath has been placed, PD not initiated yet -: cont accu/ss/ -: outpt dialysis being arranged * .
[2018-01-16] MEDS: cloNIDine 0.1 MG TAB PO SCH (20:12)
[2018-01-17] MEDS: Levothyroxine Sodium 88 MCG TAB PO SCH (05:10)
[2018-01-17] MEDS: HYDROcodone/Acetaminophen 5/325 mg Tablet PO PRN (05:10)
[2018-01-17 07:31] VITALS: BP 155/70; TEMP 98.1
[2018-01-17] MEDS: Multivitamin W/ Minerals 1 TAB PO SCH (08:26)
[2018-01-17] MEDS: Sodium Bicarbonate Tab 325 MG TAB PO SCH (08:26)
[2018-01-17] MEDS: Ferrous Sulfate 325 MG TAB PO SCH ×3 (08:27→16:40)
[2018-01-17] MEDS: Amlodipine 10 MG TAB PO SCH (08:27)
[2018-01-17] MEDS: Furosemide 40 MG TAB PO SCH ×2 (08:27→14:23)
--- NOTE | 2018-01-17 09:27 | RAD ---
CHEST ONE VIEW: History: Evaluate for tuberculosis. Comparison: None. FINDINGS: There is an opacity in the left lower lobe with small left effusion. No pneumothorax. Right lung is r elatively clear. No acute osseous abnormality. Right upper quadrant surgical clips. IMPRESSION: Left lower lobe consolidation with small effusion concerning for infection. Follow up recommended. POS: [facility]
--- NOTE | 2018-01-17 09:41 | PDOC.PN ---
- Subjective Encounter Start Date: 01/17/18 Encounter Start Time: 09:39 Subjective: alert, no abd pain, nausea - Objective Resuscitation Status: Resuscitation Status DNR:Do Not Resuscitate MAR Reviewed: Yes Vital Signs & Weight: Vital Signs (12 hours) Temp Pulse Resp BP BP Pulse Ox 01/17/18 08:27 76 155/70 H 01/17/18 07:31 98.1 F 76 16 155/70 H 98 Weight Admit Weight 147 lb 3.2 oz Weight 150 lb I&O: 01/16/18 01/17/18 01/18/18 06:59 06:59 06:59 Intake Total 100 Balance 100 Result Diagrams: 01/12/18 05:11 01/15/18 05:19 Additional Labs: Accuchecks 01/17/18 01/16/18 01/16/18 05:15 20:51 16:08 POC Glucose 155 H 220 H 176 H 01/16/18 11:00 POC Glucose 164 H Phys Exam - Physical Examination Neck: no JVD Respiratory: clear to auscultation bilateral Cardiovascular: RRR, no significant murmur Gastrointestinal: soft, non-tender, positive bowel sounds PD cath in place Musculoskeletal: no edema Dx/Plan (1) Acute on chronic renal failure Code(s): N17.9 - ACUTE KIDNEY FAILURE, UNSPECIFIED; N18.9 - CHRONIC KIDNEY DISEASE, UNSPECIFIED Status: Acute Qualifiers: Chronic kidney disease stage: stage 5, not on chronic dialysis Comment: discussed with nephrology, plan to initiate dialysis during this hospitalization (2) End stage renal disease Code(s): N18.6 - END STAGE RENAL DISEASE Status: Acute (3) DM2 (diabetes mellitus, type 2) Status: Chronic Qualifiers: Diabetes mellitus mcfp insulin use: without mcfp use Diabetes mellitus complication status: with kidney complications Chronic kidney disease stage: stage 5, not on chronic dialysis Comment: accuchecks, insulin sliding scale. (4) SBP (spontaneous bacterial peritonitis) Code(s): K65.2 - SPONTANEOUS BACTERIAL PERITONITIS Status: Ruled-out Comment : Ruled out. (5) Diabetes mellitus type 2 in obese Code(s): E11.69 - TYPE 2 DIABETES MELLITUS WITH OTHER SPECIFIED COMPLICATION; E66.9 - OBESITY, UNSPECIFIED Status: Chronic (6) Hypertension Code(s): I10 - ESSENTIAL (PRIMARY) HYPERTENSION Status: Chronic Comment: titrate antihypertensives as needed. - Plan no PD until surgery site healed, cont HD, no outpt chair estlished as yet * .
[2018-01-17 10:00] LABS: #Eosinphils 0.2 thou/uL (0.0-0.7); #Lymphocytes 1.5 thou/uL (1.20-3.40); #Monocytes 0.5 thou/uL (0.11-0.59); #Neutrophils 5.6 thou/uL (1.40-6.50); %Basophils 0.5 % (0.0-1.0); %Eosinophils 2.9 % (0.0-10.0); %Lymphocytes 19.5 % (21.0-51.0); %Monocytes 6.2 % (0.0-10.0); %Neutrophils 70.9 % (42.0-75.0); Hemoglobin 10.8 g/dL (12.0-16.0); Mean Corpuscular HGB CONC 33.6 g/dL (32.0-36.0); Mean Corpuscular Hemoglobin 28.7 pg (27.0-31.0); Mean Corpuscular Volume 85.4 fl (81.0-99.0); Mean Platelet Volume 7.9 fL (7.4-10.4); Platelet Count 162 thou/uL (130-400); RBC Distribution Width 14.7 % (11.5-14.5); Red Blood Cell (RBC) Count 3.75 mill/uL (4.20-5.40); White Blood Cell (WBC) Count 7.9 thou/uL (4.8-10.8)
[2018-01-17 10:20] LABS: Anion Gap 15 mmol/L (10-20); BUN (Urea Nitrogen) 85 mg/dL (9.8-20.1); Calc. Creatinine Clearance 11 mL/min (70-130); Calcium 7.4 mg/dL (7.8-10.44); Carbon Dioxide 17 mmol/L (23-31); Chloride 105 mmol/L (98-107); Estimated GFR-MDRD 8; Glucose 160 mg/dL (80-115); Potassium 3.7 mmol/L (3.5-5.1); Sodium 133 mmol/L (136-145)
[2018-01-17] MEDS: HumaLOG 300 UNITS/3 ML VIAL SC PRN (11:47)
--- NOTE | 2018-01-17 11:56 | DIS ---
DATE OF ADMISSION: 01/10/2018 DATE OF DISCHARGE: 01/17/2018 PRIMARY CARE PROVIDER: Christa Schumacher M.D. DISCHARGE DISPOSITION: Discharged home. FINAL DIAGNOSES: Acute on chronic renal failure requiring hemodialysis, hypertension, hypothyroidism , diabetes mellitus type 2, insulin-dependent. DISCHARGE MEDICATIONS: Clonidine 0.1 mg p.o. at bedtime, sodium bicarbonate 650 mg twice a day, mult ivitamin, Synthroid 88 mcg a day, ferrous sulfate 325 mg 3 times a day, fenofibrate 48 mg per day, Ne xium 40 mg a day, vitamin B12, vitamin D2, amlodipine 10 mg a day, albuterol sulfate 2 puffs q.4 hour s p.r.n. ALLERGIES: No known drug allergies. CODE STATUS: FULL. PENDING AT THE TIME OF DISCHARGE: Nothing. CONSULTATIONS: Dr. Enmanuel Chamberlain, Gastroenterology; Dr. Ashley Griffiths, General Surgery. PROCEDURES: On 01/11/2018, paracentesis ultrasound.
--- NOTE | 2018-01-17 13:34 | PRG ---
DATE OF SERVICE: 01/17/2018 SUBJECTIVE: Patient seems to be doing much better. The pain is much improved. PHYSICAL EXAMINATION: VITAL SIGNS: Afebrile with temperature 98.1, pulse 76, respiratory 16, blood pressure 155/70. HEENT: Unremarkable with moist oral mucosa. No conjunctival injection or icterus. NECK: Supple. CARDIOVASCULAR: First and second heart sounds were heard. RESPIRATORY: Clear to auscultation. DIGESTIVE: Revealed a positive bowel sounds. EXTREMITIES: No peripheral edema. SKIN: No new gross rash. LYMPHATICS: No peripheral lymphadenopathy. LABORATORY INVESTIGATION: Showed hemoglobin of 10.8. Chemistry showed a creatinine of 5.62, BUN of 85, bicarbonate 17, potassium is 3.7. IMPRESSION: 1. End-stage renal disease, about to be initiated on hemodialysis. 2. Anemia of chronic kidney disease. 3. Metabolic acidosis. 4. Status post peritoneal dialysis catheter placement and AV fistula creation. PLAN: 1. The patient from the renal standpoint can be discharged today. Arrangements and plans are alread y in place for outpatient dialysis initiation. 2. Further management to be dependent on the clinical course. 3. Patient to follow up with me next week in the clinic.
--- NOTE | 2018-01-18 13:48 | ADD-DIS ---
ADDENDUM PROCEDURES: Peritoneal dialysis catheter; ventral hernia repair and AV fistula on 01/15/2018, by Dr. Ashley Griffiths. HOSPITAL COURSE: The patient was treated with hemodialysis during her hospital stay. Her initial la boratory; white count 69, remained normal. Hemoglobin 7.7, it is now 10.8. Current electrolytes; so dium 133, potassium 3.7, CO2 of 17, BUN 85 and creatinine 5.6. Initial sodium 139, potassium 2.9, CO 2 of 16, BUN 77 and creatinine 4.56. Hemoglobin A1C was 8.1. Blood sugars were monitored during her hospital stay. She is currently stab le on current medications. Dr. Oreilly has recommended discharge with follow up in the renal clin ic. He will not start peritoneal dialysis until her wound for ventral hernia is healed. She will bulreson ve hemodialysis in the meantime as needed. Follow up for hemodialysis. Renal, per Dr. Oreilly. Follow up with Dr. Christa Schumacher, in 1 week.
--- NOTE | 2018-01-19 10:34 | PDOC.OP ---
Operative Note - Operative Note Operative Note: PROCEDURE: Laparoscopic PD catheter placement, repair of ventral incisional hernia with mesh, and left brachiobasilic AV fistula DATE OF PROCEDURE: 01/15/18 SURGEON: Ashley Griffiths M.D. PREOPERATIVE DIAGNOSES: End-stage renal failure POSTOPERATIVE DIAGNOSIS: End-stage renal failure HISTORY: Patient with end-stage renal failure. Laparoscopic peritoneal catheter placement with AV fistula for backup was requested by nephrology. She also has a right upper quadrant incisional hernia which I recommended repairing at the same time. PROCEDURE IN DETAIL: After informed consent was obtained and appropriate preoperative antibiotics administered, the patient was taken to the operating room, placed in supine position and general endotracheal anesthesia was administered. The abdomen was prepped and draped in standard sterile fashion and local anesthesia was infused the skin and subcutaneous tissues of level of the umbilicus. A transverse skin incision was made and the fascia was elevated. A Veress needle was placed into the abdominal cavity and carbon dioxide gas insufflated. Opening pressure was less than 5 and carbon dioxide gas easily insufflated to an intra-abdominal pressure 15 which the patient tolerated well. The Veress needle was withdrawn and a [place] port advanced under direct laparoscopic vision into the abdominal cavity which was carefully examined. There was no evidence of Veress needle or of trocar injury. There were omental adhesions in the right upper quadrants at the site of her ventral hernia.. Local anesthesia was infused to the skin and subcutaneous tissues at the left lateral and a trocar was placed at that location. The omental adhesions were carefully taken down and the ventral hernia identified containing omentum only which was able to be drawn out of the hernia sac. The entire area was cleared to allow placement of intraperitoneal mesh. The hernia defect was 2 cm across and there was adequate space between the costal margin to obtain good overlap of the mesh. A 11 cm circular mesh was obtained and Ethibond sutures placed at the 4 cardinal positions. The mesh was marked with the smooth surface facing down for orientation. The lower edge of the rectus sheath was identified in the right lower quadrant. Local anesthesia was infused the skin and subcutaneous tissues lateral and superior to this site. A skin incision was made lateral to this site and an 8 mm port tunneled superiorly and medially and then inferiorly exiting just above the edge of the posterior rectus sheath. The mesh was then briefly immersed in saline, rolled and placed through the 8 mm port. This was unrolled with the smooth surface facing down. The Ethibond sutures were drawn up superiorly, inferiorly, laterally, and medially with a GraNee needle and the sutures tied down to the fascia to secure the mesh. The mesh was then secured circumferentially with the secure strap device with excellent coverage of the fascial defect. The patient was then placed in Trendelenburg and the small intestine easily was drawn up out of the pelvis. The patient was noted to have a deep sulcus adjacent to the rectum suitable for placement of the catheter and the omentum did not seem to reach down to the pelvis. The peritoneal dialysis catheter was placed through the 8 mm trocar and held in place with the inner cuff just inside the rectus sheath as the trocar was withdrawn. The end of the catheter was placed down into the rectal cul-de-sac and saline infused into the abdominal cavity. The catheter was placed to gravity and easily drained the fluid. The umbilical trocar was then withdrawn and a 0 Vicryl suture on a GraNee needle used under direct laparoscopic vision to close the fascial incision. The suture was placed but not tied down at this point. The trocar was then replaced and the left lateral trocar withdrawn and the fascia closed at that location with a 0 Vicryl suture on a GraNee needle. This was secured and hemostasis verified. Carbon dioxide was allowed to desufflate through the umbilical trocar which was then withdrawn and the previously placed suture secured. The skin incisions were then closed with 4-0 subcuticular Monocryl sutures and Dermabond placed. The peritoneal dialysis catheter was positioned with the external cuff in the subcutaneous tissues and the skin was snugged up around the peritoneal dialysis catheter exit site with 4-0 subcuticular Monocryl sutures and Dermabond placed there as well. The peritoneal dialysis catheter was flushed with heparinized saline, clamped and capped. Once the Dermabond was dry a gauze and Tegaderm dressing was placed to the external portion of the peritoneal dialysis catheter and attention turned to the creation of a left AV fistula. The arm was prepped and draped in a standard sterile fashion and an incision made between the palpable cephalic vein and radial artery. Dissection was carried out to the cephalic vein, which appeared to be small but potentially of adequate quality and caliber to support a fistula. This was dissected free circumferentially, ligated, and divided distally, and spatulated with Matos scissors. This was serially interrogated with cardiac dilators and easily accepted up to a 3 mm cardiac dilator, but was very friable and difficult to handle. It was felt that the vein at a more proximal position with likely be of better quality so the vein was dissected free proximally and a larger forearm cephalic vein encountered. This was spatulated interrogated with cardiac dilators and easily accepted up to a 3.5 mm cardiac dilator. The vein was of much better quality at this level and an adequate length was able to be dissected free to reach over to the radial artery. The vein was flushed with heparinized saline and clamped with a bulldog clamp. The radial artery was then dissected free but was found to be severely calcified and small and was felt to be inadequate to support a fistula. Therefore the forearm cephalic vein was ligated and attention turned to the antecubital fossa. An incision was made between the palpable brachial pulse and the antecubital vein in the antecubital fossa distal to the crease and dissection carried out to the antecubital vein. This appeared to drain both into the basilic and cephalic distributions. A perforating vein was identified but this branched fairly early and appeared to be somewhat small so the decision was made to use the forearm cephalic. This was dissected free distally and was of good caliber and quality. Dissection was carried down to the artery which was dissected free proximally and distally. The bifurcation could not be identified but the artery was large and of good quality so was felt that it was likely the brachial artery with a low bifurcation the forearm cephalic vein was ligated distally and spatulated with Matos scissors and serially interrogated with cardiac dilators. This easily accepted up to a 4 mm dilator up the basilic distribution but there appeared to be a stricture or stenosis in the upper arm cephalic just above the antecubital fossa. The cephalic vein was tethering the vein such that there was a kink in the vein bringing it down to the brachial artery so decision was made to divide the upper arm cephalic vein area and once this was done the forearm cephalic vein reach down to the brachial artery easily. The vein was flushed with heparinized saline and clamped with bulldog clamp. Heparin was administered systemically and allowed to circulate for 3 minutes following which the brachial artery was clamped proximally and distally. An anterior arteriotomy was created with an 11 blade scalpel and extended with Matos scissors. An end- to-side anastomosis created with a running 6-0 Prolene suture with excellent technical result. Prior to tying down the anastomosis, the inflow was released to flush the anastomosis. Flow was established first through the fistula and then through the distal artery. Hemostasis at the site was confirmed, and an excellent thrill was felt in the basilic vein outflow and an excellent bruit was heard with Doppler as well up to the upper arm. Hemostasis at the operative site was again confirmed. Both incisions were closed with a running 3- 0 subcutaneous and running 4-0 subcuticular Monocryl sutures. Dermabond dressings were placed and the patient was extubated and taken to the recovery room in good condition. Estimated blood loss was minimal. There were no complications. There were no specimens.
== END 2018-01-17 17:19 | disposition home or self-care (01) | DRG 674 ==
LOC: SCSER 16:48 → 2NO 21:14 → T4-A 01-12 19:21
PROVIDERS: ADMIT Internal Medicine; ATTEND Internal Medicine
PROC: 0W9G3ZZ Drainage of Peritoneal Cavity, Percutaneous Approach (ICD-10-PCS; 2018-01-11)
PROC: 031809D Bypass Left Brachial Artery to Upper Arm Vein with Autologous Venous Tissue, Open Approach (ICD-10-PCS; principal; 2018-01-15)
PROC: 0WHG43Z Insertion of Infusion Device into Peritoneal Cavity, Percutaneous Endoscopic Approach (ICD-10-PCS; 2018-01-15)
PROC: 0WUF4JZ Supplement Abdominal Wall with Synthetic Substitute, Percutaneous Endoscopic Approach (ICD-10-PCS; 2018-01-15)
PROC: 05BF0ZZ Excision of Left Cephalic Vein, Open Approach (ICD-10-PCS; 2018-01-15)
DX: I12.9 Hypertensive chronic kidney disease with stage 1 through stage 4 chronic kidney disease, or unspecified chronic kidney disease (principal); N17.9 Acute kidney failure, unspecified; R18.8 Other ascites; E87.2 Acidosis; E11.22 Type 2 diabetes mellitus with diabetic chronic kidney disease; E83.39 Other disorders of phosphorus metabolism; N18.6 End stage renal disease; Z79.4 Long term (current) use of insulin; F32.9 Major depressive disorder, single episode, unspecified; E78.5 Hyperlipidemia, unspecified; B18.2 Chronic viral hepatitis C; E03.9 Hypothyroidism, unspecified; D63.1 Anemia in chronic kidney disease; Z66 Do not resuscitate
CPT/HCPCS: 36415; 36416; 36430; 49083; 71045; 74176; 80048; 80053; 80061; 80069; 81003; 81015; 82274; 82550; 82553; 82728; 83036; 83540; 83550; 83605; 83690; 83735; 83970; 84484; 85025; 85060; 85610; 85730; 86704; 86706; 86803; 86850; 86900; 86901; 87040; 87070; 87086; 87205; 87340; 89051; 93005; 93970; 96361; 96374; 96375; J2270; A4216; C1769; C1781; C9113; G0365; G8978-GP-CK; G8979-GP-CJ; J1100; J1642; J1644; J1650; J1940; J2001; J2405; J2704; J2720; J3010; P9016; Q0162; Q4081; Q9967

== ENCOUNTER 2018-01-20 10:12 | Emergency (ER) | payer OTHER ==
[2018-01-20 11:07] LABS: #Basophils 0.1 thou/uL (0.0-0.2); #Eosinphils 0.2 thou/uL (0.0-0.7); #Lymphocytes 1.3 thou/uL (1.20-3.40); #Monocytes 0.5 thou/uL (0.11-0.59); #Neutrophils 6.8 thou/uL (1.40-6.50); %Basophils 0.6 % (0.0-1.0); %Eosinophils 2.7 % (0.0-10.0); %Lymphocytes 14.9 % (21.0-51.0); %Monocytes 5.9 % (0.0-10.0); Hemoglobin 12.5 g/dL (12.0-16.0); Mean Corpuscular HGB CONC 33.9 g/dL (32.0-36.0); Mean Corpuscular Hemoglobin 28.8 pg (27.0-31.0); Mean Corpuscular Volume 84.8 fl (81.0-99.0); Mean Platelet Volume 7.6 fL (7.4-10.4); Platelet Count 219 thou/uL (130-400); RBC Distribution Width 14.3 % (11.5-14.5); Red Blood Cell (RBC) Count 4.33 mill/uL (4.20-5.40)
[2018-01-20 11:27] LABS: ALT (SGPT) 16 U/L (8-55); AST (SGOT) 64 U/L (5-34); Albumin 2.8 g/dL (3.4-4.8); Alkaline Phosphatase 360 U/L (40-150); Anion Gap 18 mmol/L (10-20); BUN (Urea Nitrogen) 91 mg/dL (9.8-20.1); Bilirubin, Total 0.5 mg/dL (0.2-1.2); CK (CPK) 49 U/L (29-168); Calc. Creatinine Clearance 0 mL/min (70-130); Calcium 7.6 mg/dL (7.8-10.44); Carbon Dioxide 17 mmol/L (23-31); Chloride 103 mmol/L (98-107); Estimated GFR-MDRD 9; Globulin 3.3 g/dL (2.4-3.5); Glucose 250 mg/dL (80-115); Potassium 3.1 mmol/L (3.5-5.1); Protein, Total 6.1 g/dL (6.0-8.3); Sodium 135 mmol/L (136-145)
[2018-01-20 11:30] LABS: Troponin I Less than 0.010 ng/mL (< 0.028)
--- NOTE | 2018-01-20 15:03 | CT ---
CT ABDOMEN AND PELVIS WITHOUT CONTRAST: HISTORY: Pain. COMPARISON: CT abdomen and pelvis 01/10/18. FINDINGS: Mild atelectasis of the lung bases. No pericardial effusion. A peritoneal dialysis catheter is in place with the tip at the left lower quadrant of the abdomen. N o kinking. There is a small volume ascites. No significant pericardial effusion. No dilated air-filled loops of large or small bowel. There is a focal area of what appears to be a h ematoma or a soft tissue injury on the right upper quadrant of the abdomen at the inferior margin of the ribs. There is also a hematoma along the transverse abdominus muscle. The appendix is visualized and is normal. IMPRESSION: 1. Satisfactory appearance of the right anterolateral ventral hernia repair. 2. New dialysis catheter in place which is coiled in the left lower quadrant of the abdomen. No kin jadon. 3. Small volume serous fluid along the ventral hernia with some edema within the transversus abdomin us muscle and small hematoma. POS: [facility]
== END 2018-01-20 14:16 | disposition home or self-care (01) ==
LOC: ERS 10:12
DX: T81.4XXA Infection following a procedure, initial encounter (principal); E11.9 Type 2 diabetes mellitus without complications; I12.0 Hypertensive chronic kidney disease with stage 5 chronic kidney disease or end stage renal disease; J45.909 Unspecified asthma, uncomplicated; N18.6 End stage renal disease; E78.00 Pure hypercholesterolemia, unspecified; F32.9 Major depressive disorder, single episode, unspecified; Z79.899 Other long term (current) drug therapy
CPT/HCPCS: 36415; 74176; 80053; 82553; 83605; 84484; 85025; 86850; 86900; 86901; 87040; 93005; 94760

== ENCOUNTER 2018-02-05 16:21 | Outpatient (CLI) | payer OTHER | END 2018-02-05 16:22 | disposition home or self-care (01) | LOC: BICRAD 16:21 | PROVIDERS: ATTEND Internal Medicine | DX: D50.9 Iron deficiency anemia, unspecified (principal) | CPT/HCPCS: 71046 ==

== ENCOUNTER 2018-03-09 09:32 | Day surgery (SDC) | payer OTHER ==
[2018-03-08 10:18] VITALS: BMI 24.6
[2018-03-09] MEDS ORDERED: Fentanyl 100 MCG/2 ML VIAL ONE ×2 (09:56→11:56)
[2018-03-09] MEDS ORDERED: Midazolam HCl 2 mg/2 ml Vial ONE (09:56)
[2018-03-09 10:06] LABS: #Basophils 0.1 thou/uL (0.0-0.2); #Eosinphils 0.3 thou/uL (0.0-0.7); #Lymphocytes 1.3 thou/uL (1.20-3.40); #Monocytes 0.4 thou/uL (0.11-0.59); #Neutrophils 5.7 thou/uL (1.40-6.50); %Basophils 0.7 % (0.0-1.0); %Eosinophils 4.1 % (0.0-10.0); %Monocytes 5.2 % (0.0-10.0); %Neutrophils 72.9 % (42.0-75.0); Hemoglobin 11.5 g/dL (12.0-16.0); Mean Corpuscular HGB CONC 32.5 g/dL (32.0-36.0); Mean Corpuscular Hemoglobin 28.3 pg (27.0-31.0); Platelet Count 215 thou/uL (130-400); RBC Distribution Width 13.6 % (11.5-14.5); Red Blood Cell (RBC) Count 4.07 mill/uL (4.20-5.40); White Blood Cell (WBC) Count 7.9 thou/uL (4.8-10.8)
[2018-03-09 10:31] LABS: Anion Gap 14 mmol/L (10-20); BUN (Urea Nitrogen) 65 mg/dL (9.8-20.1); Calc. Creatinine Clearance 13 mL/min (70-130); Calcium 8.7 mg/dL (7.8-10.44); Carbon Dioxide 24 mmol/L (23-31); Chloride 103 mmol/L (98-107); Estimated GFR-MDRD 10; Glucose 153 mg/dL (80-115); Sodium 137 mmol/L (136-145)
[2018-03-09] MEDS ORDERED: CEFAZOLIN/Water 2 GM/20 ML SYRINGE ONE (10:59)
[2018-03-09] MEDS ORDERED: Lidocaine 2% 10 ML INJ ONE (11:39)
[2018-03-09] MEDS ORDERED: Bupivacaine/Epinephrine 0.25% 30 ML VIAL ONE (11:39)
[2018-03-09] MEDS ORDERED: Protamine Sulfate 50 MG/5 ML VIAL ONE (11:39)
[2018-03-09] MEDS ORDERED: Heparin 5,000 UNITS/ML VIAL ONE (11:39)
[2018-03-09] MEDS ORDERED: Bupivacaine HCl 0.5%/Epinephrine 1:200,000/PF 30 ml Vial ONE (14:23)
[2018-03-09] MEDS ORDERED: PROPOFOL 200 MG/20 ML VIAL ONE (15:08)
[2018-03-09] MEDS ORDERED: PHENYLEPHRINE-NS 100 MCG/ML 10 ML SYRINGE ONE (15:08)
--- NOTE | 2018-03-09 16:30 | PDOC.OP ---
Operative Note - Operative Note Operative Note: PROCEDURE: Left arm basilic vein exploration DATE OF PROCEDURE: 03/09/2018 SURGEON: Ashley Griffiths M.D. PREOPERATIVE DIAGNOSES: End-stage renal failure POSTOPERATIVE DIAGNOSIS: End-stage renal failure with basilic vein inadequate for transposition HISTORY: Patient is a 62-year-old woman with end-stage renal failure. She is on peritoneal dialysis and has a basilic vein fistula which requires transposition for later use. PROCEDURE IN DETAIL: After informed consent was obtained and a infraclavicular block administered the patient was taken to the operating room she was placed in supine position and monitored anesthesia care was administered. She was prepped and draped in standard sterile fashion and the arm examined. A good thrill was palpable in the antecubital area, was more difficult to palpate in the upper inner arm. Adequacy of the block was confirmed. The previous incision was re-incised and extended superiorly but there was difficulty identifying the basilic vein fistula so an ultrasound machine was obtained. On ultrasound the vein appeared to be somewhat small but patent, coursing medially to the incision. Additional dissection was carried out, but the vein was very difficult to identify. Doppler was used to identify the vein which was confirmed to be coursing medial to the incision. Dissection was carried down to the vein which appeared to be potentially adequate at the antecubital level, but became smaller in the upper arm. It was felt that the vein was not of adequate caliber to tolerate transposition or to be accessible for dialysis. Since the patient has a functioning peritoneal dialysis catheter and plans to continue on peritoneal dialysis, the decision was made not to place a graft at this time since she has very small veins and would be at high risk for arm swelling and venous hypertension. The wound was examined and hemostasis verified. The subcutaneous tissues were reapproximated with a running 3-0 Monocryl suture. The skin was closed with 4-0 Monocryl suture and Dermabond dressings placed. Once the Dermabond was dry and Michael wrap was placed and the patient was taken to day stay in stable condition. Estimated blood loss minimal.there were no complications. There were no specimens.
== END 2018-03-09 16:05 | disposition home or self-care (01) ==
LOC: SDC 09:32
PROVIDERS: ATTEND Surgery
PROC: 05SC0ZZ Reposition Left Basilic Vein, Open Approach (ICD-10-PCS; principal; 2018-03-09)
DX: I12.0 Hypertensive chronic kidney disease with stage 5 chronic kidney disease or end stage renal disease (principal); E11.22 Type 2 diabetes mellitus with diabetic chronic kidney disease; N18.6 End stage renal disease; D63.1 Anemia in chronic kidney disease; E03.9 Hypothyroidism, unspecified; J45.909 Unspecified asthma, uncomplicated; D50.9 Iron deficiency anemia, unspecified; E78.5 Hyperlipidemia, unspecified; Z79.4 Long term (current) use of insulin; Z79.899 Other long term (current) drug therapy; Z99.2 Dependence on renal dialysis
CPT/HCPCS: 36415; 36416; 80048; 85025; J0670; J1644; J2250; J2704; J2720; J3010

== ENCOUNTER 2018-03-27 20:58 | Emergency (ER) | payer OTHER ==
--- NOTE | 2018-03-27 21:42 | RAD ---
CHEST ONE VIEW: 03/27/18 COMPARISON: 01/17/18 HISTORY: Pain. FINDINGS: Limited evaluation of the cardiac silhouette. Lung volumes are diminished likely do to poor inspirato ry effort. There are pleural and parenchymal changes in the right hemithorax which obscure the right heart border and right hemidiaphragm suggesting middle lobe and lower lobe infiltrate with superimpos ed pleural effusions. Small left sided pleural effusion is suspected. No pneumothorax. IMPRESSION: Lung parenchymal changes as above. Findings are presumed to be due to pneumonia or aspiration. Contin ues surveillance is recommended. POS: [facility]
[2018-03-27 21:49] LABS: #Basophils 0.1 thou/uL (0.0-0.2); #Eosinphils 0.3 thou/uL (0.0-0.7); #Lymphocytes 2.1 thou/uL (1.20-3.40); #Monocytes 0.4 thou/uL (0.11-0.59); #Neutrophils 6.2 thou/uL (1.40-6.50); %Basophils 0.7 % (0.0-1.0); %Eosinophils 3.7 % (0.0-10.0); %Lymphocytes 23.3 % (21.0-51.0); %Monocytes 4.6 % (0.0-10.0); %Neutrophils 67.7 % (42.0-75.0); Hemoglobin 10.3 g/dL (12.0-16.0); Mean Corpuscular HGB CONC 33.2 g/dL (32.0-36.0); Mean Corpuscular Volume 87.4 fl (81.0-99.0); Mean Platelet Volume 7.3 fL (7.4-10.4); Platelet Count 214 thou/uL (130-400); RBC Distribution Width 13.1 % (11.5-14.5); Red Blood Cell (RBC) Count 3.53 mill/uL (4.20-5.40); White Blood Cell (WBC) Count 9.1 thou/uL (4.8-10.8)
[2018-03-27 22:23] LABS: ALT (SGPT) 52 U/L (8-55); AST (SGOT) 63 U/L (5-34); Alkaline Phosphatase 477 U/L (40-150); Anion Gap 14 mmol/L (10-20); BUN (Urea Nitrogen) 55 mg/dL (9.8-20.1); Bilirubin, Total 0.4 mg/dL (0.2-1.2); Calc. Creatinine Clearance 0 mL/min (70-130); Calcium 8.4 mg/dL (7.8-10.44); Carbon Dioxide 23 mmol/L (23-31); Chloride 99 mmol/L (98-107); Estimated GFR-MDRD 9; Globulin 3.4 g/dL (2.4-3.5); Potassium 3.8 mmol/L (3.5-5.1); Protein, Total 6.4 g/dL (6.0-8.3); Sodium 132 mmol/L (136-145)
[2018-03-27 22:25] LABS: CKMB 1.4 ng/mL (0-6.6); Troponin I Less than 0.010 ng/mL (< 0.028)
[2018-03-27 22:38] LABS: Glucose 57 mg/dL (80-115)
[2018-03-27 23:03] LABS: CK (CPK) 111 U/L (29-168); Lipase 81 U/L (8-78)
[2018-03-27] MEDS ORDERED: Dextrose 50% Abboject 50 ML SYRINGE ONE (23:05)
== END 2018-03-28 01:50 | disposition home or self-care (01) ==
LOC: ERS 20:58
DX: J18.9 Pneumonia, unspecified organism (principal); J45.909 Unspecified asthma, uncomplicated; E11.22 Type 2 diabetes mellitus with diabetic chronic kidney disease; I12.0 Hypertensive chronic kidney disease with stage 5 chronic kidney disease or end stage renal disease; N18.6 End stage renal disease; E78.00 Pure hypercholesterolemia, unspecified; F32.9 Major depressive disorder, single episode, unspecified
CPT/HCPCS: 36415; 36416; 71045; 80053; 82553; 83690; 83880; 84484; 85025; 85379; 93005; 96374

== ENCOUNTER 2018-04-03 17:05 | Emergency (ER) | payer OTHER ==
[~2018-04-03 17:05] MED LIST: ISOVUE-370 76%-LOCM 1 ML ONE
[2018-04-03 18:16] LABS: #Basophils 0.1 thou/uL (0.0-0.2); #Eosinphils 0.3 thou/uL (0.0-0.7); #Lymphocytes 2.5 thou/uL (1.20-3.40); #Monocytes 0.5 thou/uL (0.11-0.59); #Neutrophils 5.9 thou/uL (1.40-6.50); %Basophils 0.6 % (0.0-1.0); %Eosinophils 3.3 % (0.0-10.0); %Lymphocytes 26.6 % (21.0-51.0); %Monocytes 5.5 % (0.0-10.0); Hemoglobin 9.6 g/dL (12.0-16.0); Mean Corpuscular HGB CONC 35.1 g/dL (32.0-36.0); Mean Corpuscular Volume 85.5 fl (81.0-99.0); Platelet Count 181 thou/uL (130-400); RBC Distribution Width 12.6 % (11.5-14.5); Red Blood Cell (RBC) Count 3.21 mill/uL (4.20-5.40); White Blood Cell (WBC) Count 9.2 thou/uL (4.8-10.8)
[2018-04-03 18:38] LABS: ALT (SGPT) 53 U/L (8-55); AST (SGOT) 74 U/L (5-34); Albumin 2.8 g/dL (3.4-4.8); Alkaline Phosphatase 435 U/L (40-150); Anion Gap 13 mmol/L (10-20); BUN (Urea Nitrogen) 40 mg/dL (9.8-20.1); Bilirubin, Total 0.3 mg/dL (0.2-1.2); Calc. Creatinine Clearance 0 mL/min (70-130); Carbon Dioxide 27 mmol/L (23-31); Chloride 104 mmol/L (98-107); Estimated GFR-MDRD 9; Globulin 2.7 g/dL (2.4-3.5); Glucose 82 mg/dL (80-115); Potassium 3.5 mmol/L (3.5-5.1); Protein, Total 5.5 g/dL (6.0-8.3); Sodium 140 mmol/L (136-145)
[2018-04-03 18:46] LABS: CKMB 1.7 ng/mL (0-6.6); Troponin I Less than 0.010 ng/mL (< 0.028)
--- NOTE | 2018-04-03 19:37 | CT ---
CT CHEST WITH CONTRAST: 04/03/18 Multiple axial tomograms obtained through the chest with IV enhancement. INDICATIONS: Shortness of breath. Pneumonia. Correlation made to chest film earlier today. Comparison made to CT abdomen 01/20/18 which did include the lung bases. FINDINGS: Bilateral pleural effusions have occurred since 01/20/18 exam. There is a large right effusion with on ly a small amount of aerated lung in the right upper lobe. This produces dense compressive atelectas is of the right lower lung. There is also mild compressive atelectasis of the left lower lobe. Medias tinum unremarkable. No evidence of proximal pulmonary embolus seen in the main pulmonary arteries. Th e thoracic aorta unremarkable. Images through the upper abdomen unremarkable. IMPRESSION: Large right pleural effusion with dense compressive atelectasis of the right lung. Moderate sized lef t pleural effusion. POS: [facility]
[2018-04-03 19:41] LABS: PTT 29.8 SEC (22.9-36.1); Prothrombin Time 13.1 SEC (12.0-14.7)
[2018-04-03] MEDS ORDERED: Dextrose 50% Abboject 50 ML SYRINGE ONE (20:04)
== END 2018-04-03 21:39 | disposition home or self-care (01) ==
LOC: ERS 17:05
DX: J90 Pleural effusion, not elsewhere classified (principal); J45.909 Unspecified asthma, uncomplicated; E03.9 Hypothyroidism, unspecified; E78.00 Pure hypercholesterolemia, unspecified; I12.0 Hypertensive chronic kidney disease with stage 5 chronic kidney disease or end stage renal disease; E11.22 Type 2 diabetes mellitus with diabetic chronic kidney disease; N18.6 End stage renal disease; F32.9 Major depressive disorder, single episode, unspecified; G20 Parkinson's disease; Z99.2 Dependence on renal dialysis; Z79.899 Other long term (current) drug therapy
CPT/HCPCS: 36416; 71260; 80053; 82553; 83880; 84484; 85025; 85610; 85730; 93005

== ENCOUNTER 2018-04-05 14:25 | Outpatient (CLI) | payer OTHER | END 2018-04-05 14:26 | disposition home or self-care (01) | LOC: BICRAD 14:25 | PROVIDERS: ATTEND Internal Medicine Infectious Disease | DX: J90 Pleural effusion, not elsewhere classified (principal); N18.6 End stage renal disease | CPT/HCPCS: 71046 ==

== ENCOUNTER 2018-04-05 22:16 | Emergency (ER) | payer OTHER ==
[2018-04-05 23:12] LABS: #Basophils 0.1 thou/uL (0.0-0.2); #Eosinphils 0.4 thou/uL (0.0-0.7); #Lymphocytes 2.5 thou/uL (1.20-3.40); #Monocytes 0.5 thou/uL (0.11-0.59); #Neutrophils 6.5 thou/uL (1.40-6.50); %Lymphocytes 24.9 % (21.0-51.0); %Monocytes 5.3 % (0.0-10.0); %Neutrophils 64.9 % (42.0-75.0); Hemoglobin 9.9 g/dL (12.0-16.0); Mean Corpuscular HGB CONC 33.8 g/dL (32.0-36.0); Mean Corpuscular Hemoglobin 29.5 pg (27.0-31.0); Mean Corpuscular Volume 87.3 fl (81.0-99.0); Mean Platelet Volume 7.1 fL (7.4-10.4); Platelet Count 174 thou/uL (130-400); RBC Distribution Width 12.8 % (11.5-14.5); Red Blood Cell (RBC) Count 3.35 mill/uL (4.20-5.40)
[2018-04-05 23:27] LABS: Anion Gap 15 mmol/L (10-20); BUN (Urea Nitrogen) 35 mg/dL (9.8-20.1); Calc. Creatinine Clearance 0 mL/min (70-130); Carbon Dioxide 25 mmol/L (23-31); Chloride 101 mmol/L (98-107); Estimated GFR-MDRD 8; Glucose 96 mg/dL (80-115); Potassium 3.4 mmol/L (3.5-5.1); Sodium 138 mmol/L (136-145)
== END 2018-04-06 00:27 | disposition home or self-care (01) ==
LOC: ERS 22:16
DX: E11.649 Type 2 diabetes mellitus with hypoglycemia without coma (principal); I12.0 Hypertensive chronic kidney disease with stage 5 chronic kidney disease or end stage renal disease; N18.6 End stage renal disease; E03.9 Hypothyroidism, unspecified; E11.22 Type 2 diabetes mellitus with diabetic chronic kidney disease; E78.00 Pure hypercholesterolemia, unspecified; J45.909 Unspecified asthma, uncomplicated; F32.9 Major depressive disorder, single episode, unspecified; Z79.899 Other long term (current) drug therapy; Z79.4 Long term (current) use of insulin
CPT/HCPCS: 36415; 36416; 80048; 85025; 99284

== ENCOUNTER → 2018-04-12 | Day surgery (SDC) | payer OTHER ==
[~2018-04-12] MED LIST changes: -ISOVUE-370 76%-LOCM 1 ML ONE; +Lidocaine 1% (PF) 30 ML VIAL ONE
[2018-04-12 08:59] LABS: Body Fluid Source THORACENTESIS FLD; Fluid, Triglycerides Less than 11 mg/dL (Not Available); Pleural Fluid, Amylase Less than 30 U/L (Not Available); Pleural Fluid, Glucose 108 mg/dL; Pleural Fluid, LDH 40 U/L (Not Available); Pleural Fluid, Protein Less than 1.0 g/dL
[2018-04-12 09:00] LABS: BF Color Colorless; Clarity Hazy (Clear); Tube # 3
[2018-04-12 09:10] LABS: BF RBC Count - Manual 40 /cumm; BF WBC/Nonhematics Ct. - Manua 43 /cumm
--- NOTE | 2018-04-12 09:40 | OP ---
DATE OF PROCEDURE: 04/12/2018 PROCEDURE: Thoracentesis. SURGEON: Dr. Brooks De Los Santos INDICATIONS: Right pleural effusion. PROCEDURE IN DETAIL: After informed consent, the right posterior thorax was cleaned with chlorhexidine, 1% Xylocaine infiltrated in the right 9th intercostal space in the midscapular to pleuraand, 20 mL of very pale fluid was removed, almost looked like water. Thereafter, using an 8 [place] catheter, a total of additional 1400 mL removed without difficulty. Pleural effusion appears to be essentially a transudate. It could very well be part of the peritoneal dialysis fluid that she is getting for peritoneal dialysis. However , we will send the fluid for studies including culture. The patient tolerated the procedure well. BRIEF DISCHARGE NOTE: The patient tolerated the procedure well. Results made available to the patient and family. Further recommendations after above. [facility]TD[facility]
[2018-04-12 10:16] LABS: BF Segmented Neutrophils 3 %; Cell Count Non Hematic 68 %; Eosinophils 3 %; Lymphocytes 26 %
--- NOTE | 2018-04-12 10:30 | RAD ---
PORTABLE CHEST 1 VIEW: Date: 04/12/18 Time: 0832 hours HISTORY: Thoracentesis. FINDINGS/IMPRESSION: Comparison made with exam of 04/03/18. There has been interval near complete resolution of the right-sided pleural effusion seen on the prev ious study. There is suggestion of a tiny right lateral pneumothorax. The heart size is normal. The left lung is clear. Findings discussed over the phone with Dr. Brooks De Los Santos at 0858 hours. CODE CR. POS: [facility]
== END ==
LOC: SDC 07:02
PROVIDERS: ATTEND Internal Medicine Pulmonary Disease
PROC: 0W993ZZ Drainage of Right Pleural Cavity, Percutaneous Approach (ICD-10-PCS; principal; 2018-04-12)
DX: J90 Pleural effusion, not elsewhere classified (principal); E03.9 Hypothyroidism, unspecified; I10 Essential (primary) hypertension; E11.9 Type 2 diabetes mellitus without complications; J45.909 Unspecified asthma, uncomplicated; N19 Unspecified kidney failure; Z79.899 Other long term (current) drug therapy; Z79.52 Long term (current) use of systemic steroids
CPT/HCPCS: 32554; 71045; 82150; 82945; 83615; 84157; 84478; 85060; 87070; 87116; 87205; 87206; 88112; 88305; 89051; J1642; J2001

== ENCOUNTER 2018-05-02 11:42 | Outpatient (CLI) | payer OTHER | END 2018-05-02 11:43 | disposition home or self-care (01) | LOC: BICRAD 11:42 | PROVIDERS: ATTEND Internal Medicine Nephrology | DX: J90 Pleural effusion, not elsewhere classified (principal) | CPT/HCPCS: 71046 ==

== ENCOUNTER 2018-05-25 15:40 | Outpatient (CLI) | payer OTHER ==
[2018-05-25 16:24] LABS: Hemoglobin 12.9 g/dL (12.0-16.0); Mean Corpuscular HGB CONC 33.5 g/dL (32.0-36.0); Mean Corpuscular Hemoglobin 29.4 pg (27.0-31.0); Mean Corpuscular Volume 87.9 fL (78.0-98.0); Mean Platelet Volume 7.4 fL (7.4-10.4); Platelet Count 133 thou/uL (130-400); RBC Distribution Width 12.2 % (11.5-14.5); Red Blood Cell (RBC) Count 4.37 mill/uL (4.20-5.40); White Blood Cell (WBC) Count 7.2 thou/uL (4.8-10.8)
[2018-05-25 16:42] LABS: ALT (SGPT) 45 U/L (8-55); AST (SGOT) 52 U/L (5-34); Albumin 2.6 g/dL (3.4-4.8); Alkaline Phosphatase 317 U/L (40-150); Anion Gap 16 mmol/L (10-20); BUN (Urea Nitrogen) 40 mg/dL (9.8-20.1); Bilirubin, Total 0.4 mg/dL (0.2-1.2); Calc. Creatinine Clearance 0 mL/min (70-130); Calcium 7.6 mg/dL (7.8-10.44); Carbon Dioxide 19 mmol/L (23-31); Chloride 107 mmol/L (98-107); Estimated GFR-MDRD 8; Globulin 2.7 g/dL (2.4-3.5); Glucose 269 mg/dL (80-115); Potassium 4.1 mmol/L (3.5-5.1); Protein, Total 5.3 g/dL (6.0-8.3); Sodium 138 mmol/L (136-145)
== END 2018-05-25 15:41 | disposition home or self-care (01) ==
LOC: LABBT 15:40
PROVIDERS: ATTEND Internal Medicine Cardiovascular Disease
DX: Z01.818 Encounter for other preprocedural examination (principal); I70.213 Atherosclerosis of native arteries of extremities with intermittent claudication, bilateral legs
CPT/HCPCS: 80053; 85027

== ENCOUNTER 2018-05-28 20:22 | Inpatient (IN) | payer MEDICARE, OTHER ==
[2018-05-28 21:42] LABS: #Basophils 0.1 thou/uL (0.0-0.2); #Eosinphils 0.2 thou/uL (0.0-0.7); #Lymphocytes 1.6 thou/uL (1.20-3.40); #Monocytes 0.3 thou/uL (0.11-0.59); #Neutrophils 5.4 thou/uL (1.40-6.50); %Eosinophils 2.5 % (0.0-10.0); %Lymphocytes 20.5 % (21.0-51.0); %Monocytes 4.3 % (0.0-10.0); %Neutrophils 71.7 % (42.0-75.0); Hemoglobin 12.6 g/dL (12.0-16.0); Mean Corpuscular HGB CONC 34.3 g/dL (32.0-36.0); Mean Corpuscular Hemoglobin 29.4 pg (27.0-31.0); Mean Corpuscular Volume 85.6 fL (78.0-98.0); Mean Platelet Volume 7.3 fL (7.4-10.4); Platelet Count 149 thou/uL (130-400); White Blood Cell (WBC) Count 7.6 thou/uL (4.8-10.8)
[2018-05-28 22:02] LABS: ALT (SGPT) 48 U/L (8-55); AST (SGOT) 59 U/L (5-34); Albumin 2.7 g/dL (3.4-4.8); Alkaline Phosphatase 298 U/L (40-150); Anion Gap 17 mmol/L (10-20); BUN (Urea Nitrogen) 46 mg/dL (9.8-20.1); Bilirubin, Total 0.4 mg/dL (0.2-1.2); Calc. Creatinine Clearance 0 mL/min (70-130); Calcium 7.8 mg/dL (7.8-10.44); Carbon Dioxide 20 mmol/L (23-31); Chloride 104 mmol/L (98-107); Estimated GFR-MDRD 8; Glucose 141 mg/dL (80-115); Lipase 66 U/L (8-78); Potassium 3.4 mmol/L (3.5-5.1); Protein, Total 5.7 g/dL (6.0-8.3); Sodium 138 mmol/L (136-145)
[2018-05-28 22:05] LABS: CKMB 2.2 ng/mL (0-6.6); Troponin I Less than 0.010 ng/mL (< 0.028)
--- NOTE | 2018-05-28 22:39 | RAD ---
AP VIEW CHEST: INDICATIONS: Shortness of breath and vomiting. COMPARISON: 04/12/2018 FINDINGS: There has been interval development of a moderate sized right pleural effusion with right basilar air space opacity. The left lung is clear. No acute osseous abnormality is evident. IMPRESSION: 1. Moderate right pleural effusion and right basilar opacity may reflect atelectasis or pneumonia. Recommend correlation. 2. Stable changes of prior cholecystectomy. The left lung is clear. POS: [facility]
--- NOTE | 2018-05-28 23:03 | CT ---
CT ABDOMEN AND PELVIS WITHOUT IV CONTRAST: INDICATIONS: Vomiting and abdominal pain with shortness of breath. History of angiogram earlier today with no com plications. COMPARISON: Prior CT abdomen and pelvis without contrast dated 01/20/2018. FINDINGS: There is a moderate sized right pleural effusion. There is compressive atelectasis of the right lowe r lobe and right middle lobe. There is mild left basilar and lingular atelectasis. The unopacified liver, pancreas, spleen, and adrenal glands are unremarkable. There are prominent ab dominopelvic vascular calcifications. There is a right lower quadrant peritoneal dialysis catheter. There is contrast within the bladder, likely related to the patient's prior catheterization. There is a dressing overlying the right inguinal region, likely relating an arterial puncture site. No definite hematoma is evident within this region. Unopacified large and small bowel are unremarkable. IMPRESSION: New moderate right pleural effusion and right basilar atelectasis. POS: [facility]
[2018-05-29 01:29] LABS: Troponin I Less than 0.010 ng/mL (< 0.028)
[2018-05-29 01:39] VITALS: BMI 23.9
[2018-05-29] MEDS ORDERED: cefTRIAXone\\ROCEPHIN 2 GM in Sodium Chloride 0.9% 100 ML IVPB SCH ×3 (02:00→12:30)
[2018-05-29 05:21] LABS: Troponin I Less than 0.010 ng/mL (< 0.028)
[2018-05-29] MEDS ORDERED: Benzonatate 100 MG CAP PO PRN (08:48)
[2018-05-29] MEDS ORDERED: Loratadine 10 MG TAB PO PRN (08:48)
[2018-05-29] MEDS ORDERED: Ondansetron PF 4 MG/2 ML Vial IVP PRN (08:48)
[2018-05-29] MEDS ORDERED: HumaLOG 300 UNITS/3 ML VIAL SC PRN ×2 (08:48)
[2018-05-29] MEDS ORDERED: Acetaminophen 325 MG TAB PO PRN (08:48)
[2018-05-29] MEDS ORDERED: Diabetic Tussin 200 MG/10 ML UDCUP PO PRN (08:48)
[2018-05-29] MEDS ORDERED: Dextrose 50% Abboject 50 ML SYRINGE SLOW IVP PRN (08:48)
[2018-05-29] MEDS ORDERED: Bisacodyl 5 MG TAB PO PRN (08:48)
[2018-05-29] MEDS ORDERED: cloNIDine 0.1 MG TAB PO PRN (08:48)
[2018-05-29] MEDS ORDERED: Dextrose 5% in Water 1,000 ML IV PRN (08:48)
[2018-05-29] MEDS ORDERED: Nitroglycerin 0.4 MG TAB (25 Tab Bottle) SL PRN (08:48)
[2018-05-29] MEDS ORDERED: traMADol HCl 50 MG TAB PO PRN (08:48)
[2018-05-29] MEDS ORDERED: hydrALAZINE 20 MG/ML VIAL SLOW IVP PRN (08:48)
[2018-05-29] MEDS ORDERED: Senokot 8.6 MG TAB PO PRN (08:48)
[2018-05-29] MEDS ORDERED: INSULIN DETEMIR SQ SCH (09:00)
[2018-05-29] MEDS ORDERED: Ergocalciferol 1.25 MG(50,000 UNITS) CAP PO SCH ×2 (09:00)
[2018-05-29] MEDS ORDERED: Levothyroxine Sodium 88 MCG TAB PO SCH (09:00)
[2018-05-29] MEDS ORDERED: Non-Formulary Item 1 EACH (Ferrous Sulfate [Ferrous Sulfate] 325 MG) PO SCH (09:00)
[2018-05-29] MEDS ORDERED: Non-Formulary Item 1 EACH (Losartan Potassium [Cozaar] 100 MG) PO SCH (09:00)
[2018-05-29] MEDS ORDERED: Non-Formulary Item 1 EACH (Sodium Bicarbonate [Sodium Bicarbonate] 1,300 MG) PO SCH (09:00)
[2018-05-29] MEDS ORDERED: [UNRECOGNIZED DRUG - OTHER] PO SCH (09:00)
[2018-05-29] MEDS ORDERED: Non-Formulary Item 1 EACH (Esomeprazole Magnesium [Nexium 24hr] 40 MG) PO SCH (09:00)
[2018-05-29] MEDS ORDERED: Non-Formulary Item 1 EACH (Cyanocobalamin (Vitamin B-12) [Vitamin B-12] 100 MCG) PO SCH (09:00)
[2018-05-29] MEDS ORDERED: Insulin Glargine 14 UNITS in Pre-Filled Syringe 1 EACH SC SCH (09:15)
[2018-05-29] MEDS: Amlodipine 10 MG TAB PO SCH (10:01)
[2018-05-29] MEDS: Losartan 25 MG TAB PO SCH (10:02)
[2018-05-29] MEDS: Heparin 5,000 UNITS/ML VIAL SC SCH ×2 (10:02→20:44)
[2018-05-29] MEDS: Multivitamin W/ Minerals 1 TAB PO SCH (10:03)
--- NOTE | 2018-05-29 10:08 | CON ---
DATE OF CONSULTATION: 05/29/2018 HISTORY: This is a 63-year-old female with end-stage renal disease and hepatitis C. She was referred to the office for evaluation of pleural effusion and a thoracentesis was performed o n an outpatient basis. Results of the pleural effusion, there was a transudate with a protein of 1. I personally discussed these findings with her referring doctor, felt this was secondary to liver dis ease, ascites and peritoneal dialysis all combined together. Clearly the effusion comes back again. It is unclear whether she has been seen by Nephrology or GI at this stage. She came in last night with symptoms of chest pain and status post angiogram of lower extremities. PAST MEDICAL HISTORY: Extensively outlined, pertinent for hepatitis C, diabetes, hypertension, renal failure. CHRONIC MEDICATIONS: As outlined. PAST SURGICAL HISTORY: Hysterectomy and gallbladder, hernia, peritoneal catheter access. TOBACCO: None. ALCOHOL: None. MEDICATIONS: Cozaar 100, Synthroid 88, insulin, magnesium, Lipitor, Norvasc 10. REVIEW OF SYSTEMS: Otherwise, 10-point negative. PHYSICAL EXAMINATION: GENERAL: This morning she is awake, alert, responsive, sitting on the side of bed. VITAL SIGNS: Sats are 90% on room air, temperature 98, pulse 86, blood pressure 102/68. CHEST: Decreased breath sounds, no wheezing. CARDIAC: Normal S1-S2. No gallops. ABDOMEN: Soft. No mass. X-ray showed large pleural effusion. LABORATORY: White count 7000, H&H is unremarkable. BUN and creatinine are 46 and 5.72. IMPRESSION: 1. Recurrent right pleural effusion, transudate. 2. Hepatitis C on no treatment and no medication. 3. Renal failure on dialysis. Apparently peritoneal until recently. PLAN: Pulmonary is not going to do a thoracentesis at this time unless she is adequately treated for her hepatitis C and her renal failure is addressed. Clearly the peritoneal dialysis is aggravating the pleural effusion. Please call again when the patient is more symptomatic.
[2018-05-29] MEDS ORDERED: Vancomycin HCl 750 MG in Sodium Chloride 0.9% 250 ML 250 ML IVPB SCH (10:30)
[2018-05-29] MEDS ORDERED: Vancomycin HCl 500 MG in Sodium Chloride 0.9% 100 ML IVPB SCH (10:30)
[2018-05-29] MEDS ORDERED: Vancomycin HCl 1 GM in Premix Bag 1 BAG IVPB SCH (10:30)
[2018-05-29] MEDS ORDERED: Vancomycin HCl 250 MG in Sodium Chloride 0.9% 100 ML IVPB SCH (10:30)
[2018-05-29] MEDS ORDERED: Vancomycin Sliding Scale 1 EACH FS ONE (10:30)
[2018-05-29] MEDS ORDERED: HOLD VANCOMYCIN FOR LEVEL >20 FS SCH (10:30)
[2018-05-29] MEDS ORDERED: predniSONE 20 MG TAB PO SCH (10:45)
[2018-05-29] MEDS ORDERED: Vancomycin HCl 1.5 GM in Sodium Chloride 0.9% 250 ML 300 ML IVPB SCH (11:00)
[2018-05-29] MEDS: Calcium Acetate 667 MG CAP PO SCH ×2 (11:44→17:56)
[2018-05-29] MEDS: Calcium Carbonate 500 MG ChewTAB PO SCH ×2 (11:44→17:56)
--- NOTE | 2018-05-29 11:51 | HP ---
DATE OF ADMISSION: 05/29/2018 PRIMARY CARE PHYSICIAN: Dr. Christa Schumacher. CHIEF COMPLAINT: Abdominal pain, shortness of breath, vomiting, and diarrhea. HISTORY OF PRESENT ILLNESS: Ms. Morfin is a 63-year-old female with past medical history of hepatiti s C, diabetes mellitus, hypertension, end-stage renal disease on hemodialysis, hypothyroidism, and ch ronic right-sided pleural effusion who presented to the emergency room with above-mentioned complaint . History is mainly obtained by the patient herself and extensive electronic medical records have be en reviewed. The patient underwent an aortogram to evaluate peripheral vascular disease yesterday by Dr. Jones . She reports that since she got home, she started to have abdominal pain and has been vomiting and having loose stools at the same time. She denies any fever or chills. She denies any chest pain. S he does have worsening shortness of breath. Please note that the patient was recently seen in the outpatient setting by Pulmonary Medicine for ch ronic right-sided pleural effusion and underwent thoracentesis on 04/12/[address] De Los Santos. She has hi story of chronic hepatitis C and is under the care of Dr. Rosales and unfortunately has not been able t o be started on treatment for the same because of insurance reasons. It was decided that she would n ot need to repeat thoracentesis as it is redundant until unless she starts treatment of the hepatitis C and liver cirrhosis, which is causing the recurrent pleural effusion. Nevertheless, she presented to the ER with these symptoms after they consulted Dr. Jones in the [facility] for these symptoms and were told to come to the ER. She was hemodynamically stable upon presen tation with a blood pressure of 168/87, pulse of 95, respirations 20, temperature 98. She was satura ting 98% on room air. Her 12-lead EKG did not show any acute ST or T-wave changes. A CT scan of the abdomen and pelvis was done, which once again demonstrated moderate right-sided pleural effusion and right basilar atelectasis. She was given IV Rocephin, Zofran and is now being admitted for further evaluation and care for immediate of symptoms. Pulmonary Medicine and her tail edger, Dr. Marte ty has been consulted from the emergency room. Please note that the patient has been on peritoneal dialysis since January of this year and her daughte r-in-law does the PD at home. I have discussed the care with her [id number] over the phone as leeanna abigail. CODE STATUS: FULL CODE. Discussed with the patient. PAST MEDICAL HISTORY: 1. End-stage renal disease on peritoneal dialysis. 2. Diabetes mellitus type 2, insulin-dependent. 3. Depression. 4. Hypertension. 5. Asthma. 6. Hepatitis C, not treated yet. 7. Dyslipidemia. PAST SURGICAL HISTORY: 1. Cholecystectomy. 2. Hysterectomy. 3. Hernia repair x2. 4. PD catheter placement. ALLERGIES: No known medication allergies. FAMILY HISTORY: Significant for diabetes, hypertension, brain cancer and cirrhosis. HOME MEDICATIONS: As follows. Levemir 14 units daily, Tums t.i.d., Lipitor 10 mg daily, B12 100 mcg daily, calcium acetate 667 t.i.d., Norvasc 10 mg daily, ProAir as needed, Nexium 40 mg daily, vitami n D2 50,000 units every 7 days, multivitamin daily, losartan 100 mg daily, levothyroxine 88 mcg daily , and ferrous sulfate 325 mg p.o. t.i.d. REVIEW OF SYSTEMS: A 12-point review of systems is done. It is negative except for those mentioned in the history and physical. The patient denies any dysuria, frequency, urgency, or hematuria. Her abdominal pain is nonradiating and currently she is feeling much better and has no symptoms. LABORATORY DATA AND IMAGING: CBC is unremarkable. Serum chemistries upon presentation done in the E R showed potassium of 3.4, bicarbonate 20, BUN 46, creatinine 5.72, blood sugar 141, lactic acid is n ormal. AST 59, alkaline phosphatase 298, ALT is normal. Cardiac enzymes were trended and troponin i s less than 0.010 x3 with normal CK-MB and normal BNP. Lipase is normal at 66. Chest x-ray by my re view shows moderate sized pleural effusion on the right side with associated atelectasis. CT scan of the abdomen and pelvis is negative for any acute intra-abdominal changes except for the right-sided pleural effusion. There is no specific abscess noticed with relation to the PD catheter. PHYSICAL EXAMINATION: VITAL SIGNS: Most recent vital signs, temperature 98.8, pulse of 84, respirations 16, saturating 92% on room air, blood pressure 142/68. GENERAL: No acute distress, awake, alert, oriented x3, lying comfortably in bed. She does appear so mewhat weak and tired. HEENT: Mucous membranes are slightly dry. No oropharyngeal exudate or erythema. Head is normocepha lic, atraumatic. Pupils equal, reactive to light and accommodation. Extraocular movement intact. NECK: Supple without any lymphadenopathy, JVD or bruits. CHEST: Evaluation has clear breath sounds, but decreased at bases, more so on the right side and rickey ewhat in the left as well. CARDIOVASCULAR: Rate and rhythm is regular without any murmur, rubs or gallops. ABDOMEN: Soft, nontender, nondistended at this time. No guarding, rebound or rigidity. EXTREMITIES: Free of any cyanosis, clubbing, or edema. NEUROLOGIC: Nonfocal. SKIN: Free of any rashes or bruises. I feel warm and dry to touch. PSYCHIATRIC: Normal affect. IMPRESSION AND PLAN: 1. Acute dyspnea. This is secondary to reaccumulation of the right-sided pleural effusion. She had the right-sided paracentesis done not too long ago, which was found to be transudative in nature sec ondary to her liver cirrhosis which seems to be the ongoing issue here. Pulmonary Medicine has been consulted from the Emergency Room, but I do not think that the patient will need a repeat thoracentes is as she will keep accumulating it again and again until she is treated for her hepatitis C. At thi s time, the treatment is mainly supportive. We will add nebulizers as needed. The patient is not hy poxic and is currently free of symptoms. No indication to add antibiotics as there is no evidence of pneumonia on the chest x-ray. 2. Abdominal pain. At this time, likely secondary to fluid collection from the PD and the liver cir rhosis or the hepatitis C itself. She might also be having a reaction secondary to the catheterizati on process for aortic angiogram she got done yesterday. Currently, the symptoms are under control. However, given the presence of the PD catheter, the possibility of peritonitis cannot be ruled out co mpletely. She will be treated empirically with IV antibiotics. One dose of Rocephin was given in th e emergency room, and we will continue that and add vancomycin for now. I have discussed this possib ility with the tail edger, Dr. Bedrock. Blood cultures were sent from the ER and we will follow the results. At this time, the patient does not appear septic. 3. Chronic hepatitis C. Unfortunately, the patient's insurance companies have repeatedly denied her medications. This patient requires treatment and without it her condition was worsened to the point where there is a high risk for acute decompensation from recurrent pleural effusion and possibly asc ites. Dr. Rosales is following up on this and she is encouraged to continue to follow up as an outpati ent. 4. End-stage renal disease on peritoneal dialysis. Nephrology has been consulted for maintenance he modialysis. This patient most likely will end up needing hemodialysis soon, because of recurrent asc ites from liver cirrhosis and increased risk of infection from PD. 5. Diabetes mellitus. We will restart her Levemir and add insulin sliding scale for further control with frequent Accu-Cheks. 6. History of hypothyroidism. We will restart her levothyroxine. 7. Hypertension. We will restart her Norvasc and Cozaar for now. 8. Chronic anemia, currently stable. Restart ferrous sulfate. 9. Code status: FULL CODE. Discussed with the patient. 10. Deep venous thrombosis and gastrointestinal prophylaxis, add p.r.n. medication orders and contin ue supportive care. DISPOSITION: Ms. Morfin is currently being admitted to the hospital with possible PD catheter associ ated peritonitis leading to abdominal pain and recurrent right-sided pleural effusion from chronic he patitis C. Estimated length of stay at this time is at least 2-3 midnights or longer. Further manag ement will depend upon her clinical course.
[2018-05-29] MEDS ORDERED: Calcium Acetate 667 MG CAP PO SCH (12:00)
[2018-05-29] MEDS: Ferrous Sulfate 325 MG TAB PO SCH ×2 (15:41→20:43)
[2018-05-29] MEDS: Atorvastatin Calcium 10 MG TAB PO SCH (20:43)
[2018-05-29] MEDS: Sodium Bicarbonate Tab 325 MG TAB PO SCH (20:43)
[2018-05-29 23:27] LABS: BF Color Colorless; Body Fluid Source Dialysate Fluid; Clarity Hazy (Clear); Tube # EDTA
[2018-05-29 23:28] LABS: RBC Background Count 0.005; WBC Background Count 0.01
[2018-05-29 23:29] LABS: BF RBC Count - Manual 138 /cumm; BF WBC/Nonhematics Ct. - Manua 96 /cumm
[2018-05-30 00:20] LABS: BF Segmented Neutrophils 50 %; Cell Count Non Hematic 33 %; Lymphocytes 17 %
--- NOTE | 2018-05-30 03:01 | CON ---
DATE OF CONSULTATION: 05/29/2018 CONSULTING PHYSICIAN: Afia Burk M.D. REQUESTING PHYSICIAN: Dr. Betancourt. REASON FOR CONSULTATION: Need for maintenance peritoneal dialysis. IMPRESSION: 1. End-stage renal disease on peritoneal dialysis. 2. Abdominal pain, query cause, somewhat doubtful. This is being peritonitis. 3. Recurrent pleural effusion, transudative. PLAN: 1. The patient to continue with peritoneal dialysis for now; however, if this is recurrent pleural e ffusion with some degree of problematic, we will probably make a decision on whether to switch this p atient over to hemodialysis. Unfortunately, at this point, the patient does not have any functioning vascular access for hemodialysis. 2. Empiric antibiotics for now. 3. We will send the peritoneal fluid for evaluation for any potential infection. 4. Further management to be dependent on the clinical course. HISTORY OF PRESENT ILLNESS: History is that of 63-year-old female patient with end-stage renal disea se on peritoneal dialysis, recurrent right pleural effusion who presented here with nausea, vomiting, abdominal pain, status post angiogram. The patient denies any fever, denies any change in the color of dialysis fluid. The patient has been admitted with a presumptive diagnosis of peritonitis. The need for continued renal replacement therapy necessitated renal consultation. PAST MEDICAL HISTORY: Significant for chronic hepatitis C; end-stage renal disease, hemodialysis dep endent; hypokalemia, the patient is requiring potassium supplementation; depression; asthma; dyslipid emia; and type 2 diabetes. ALLERGIES: No known drug allergy. FAMILY HISTORY: Significant for diabetes, hypertension, and cirrhosis. MEDICATIONS: Reviewed as documented on [facility]. REVIEW OF SYSTEMS: As documented in the body of the history. All the other systems were reviewed an d found not to be significantly related to presenting illness. LABORATORY INVESTIGATION: Showed a potassium of 3.4, creatinine 5.72 with BUN of 46, albumin of 2.7. CBC is unremarkable. Chest x-ray shows recurrent right-sided moderate pleural effusion. PHYSICAL EXAMINATION: GENERAL: The patient was found not to be in any obvious distress with the following vital signs. VITAL SIGNS: Afebrile with temperature 98.2, pulse 88, respiratory rate of 18, O2 sat of 93% with bl ood pressure 130/74. HEENT: Unremarkable. CARDIOVASCULAR SYSTEM: First and second heart sounds were heard. RESPIRATORY SYSTEM: Revealed absent breath sounds in the right hemithorax inferiorly. DIGESTIVE SYSTEM: Revealed a vague abdominal discomfort. EXTREMITIES: No peripheral edema. SKIN: No new gross rash. LYMPHATICS: No peripheral lymphadenopathy. SUMMARY: A 63-year-old female patient with end-stage renal disease, peritoneal dialysis dependent wh o presented here with abdominal pain, nausea, and vomiting. Thank you for this consultation. We will follow with you.
[2018-05-30 05:11] LABS: #Eosinphils 0.1 thou/uL (0.0-0.7); #Lymphocytes 1.8 thou/uL (1.20-3.40); #Monocytes 0.4 thou/uL (0.11-0.59); #Neutrophils 3.8 thou/uL (1.40-6.50); %Basophils 0.4 % (0.0-1.0); %Eosinophils 2.3 % (0.0-10.0); %Lymphocytes 29.5 % (21.0-51.0); %Monocytes 5.8 % (0.0-10.0); %Neutrophils 62.1 % (42.0-75.0); Mean Corpuscular HGB CONC 33.6 g/dL (32.0-36.0); Mean Corpuscular Volume 86.3 fL (78.0-98.0); Mean Platelet Volume 7.7 fL (7.4-10.4); Platelet Count 125 thou/uL (130-400); RBC Distribution Width 12.2 % (11.5-14.5); Red Blood Cell (RBC) Count 4.14 mill/uL (4.20-5.40); White Blood Cell (WBC) Count 6.1 thou/uL (4.8-10.8)
[2018-05-30 05:23] LABS: Anion Gap 16 mmol/L (10-20); BUN (Urea Nitrogen) 45 mg/dL (9.8-20.1); Calc. Creatinine Clearance 11 mL/min (70-130); Calcium 7.7 mg/dL (7.8-10.44); Carbon Dioxide 21 mmol/L (23-31); Chloride 104 mmol/L (98-107); Estimated GFR-MDRD 8; Glucose 198 mg/dL (80-115); Potassium 3.1 mmol/L (3.5-5.1); Sodium 138 mmol/L (136-145)
[2018-05-30] MEDS: Levothyroxine Sodium 88 MCG TAB PO SCH (05:53)
[2018-05-30] MEDS ORDERED: predniSONE 20 MG TAB PO SCH (08:00)
[2018-05-30] MEDS ORDERED: Vancomycin HCl 1 GM in Premix Bag 1 BAG IVPB SCH (09:00)
[2018-05-30] MEDS: Ferrous Sulfate 325 MG TAB PO SCH ×3 (09:13→20:10)
[2018-05-30] MEDS: Insulin Glargine 14 UNITS in Pre-Filled Syringe 1 EACH SC SCH (09:13)
[2018-05-30] MEDS: Heparin 5,000 UNITS/ML VIAL SC SCH ×2 (09:13→20:11)
[2018-05-30] MEDS: Calcium Acetate 667 MG CAP PO SCH ×3 (09:14→17:57)
[2018-05-30] MEDS: Amlodipine 10 MG TAB PO SCH (09:14)
[2018-05-30] MEDS: Calcium Carbonate 500 MG ChewTAB PO SCH ×3 (09:14→17:57)
[2018-05-30] MEDS: Sodium Bicarbonate Tab 325 MG TAB PO SCH ×2 (09:14→20:10)
[2018-05-30] MEDS: Multivitamin W/ Minerals 1 TAB PO SCH (09:15)
[2018-05-30] MEDS: Losartan 25 MG TAB PO SCH (09:15)
--- NOTE | 2018-05-30 11:40 | PDOC.PN ---
- Subjective Encounter Start Date: 05/30/18 Encounter Start Time: 11:39 Subjective: feels much better today. no more vomiting or abd pain -: able to eat this morning. no diarrhea either - Objective Resuscitation Status: Resuscitation Status FULL:Full Resuscitation MAR Reviewed: Yes Vital Signs & Weight: Vital Signs (12 hours) Temp Pulse Resp BP Pulse Ox 05/30/18 11:37 98.5 F 86 16 156/74 H 94 L 05/30/18 08:00 98.5 F 91 16 05/30/18 07:44 98.5 F 91 16 163/79 H 93 L 05/30/18 04:20 97.8 F 87 16 153/80 H 97 Weight Weight 139 lb 4.8 oz I&O: 05/29/18 05/30/18 05/31/18 06:59 06:59 06:59 Intake Total 2080 Output Total 200 Balance 1880 Result Diagrams: 05/30/18 04:05 05/30/18 04:05 Additional Labs: Accuchecks 05/30/18 05/29/18 05/29/18 05:54 20:39 16:30 POC Glucose 173 H 167 H 147 H Microbiology 05/29/18 21:15 Dialysate fluid Body Fluid Culture - Preliminary 05/29/18 21:15 Dialysate fluid Body Fluid Culture - Preliminary 05/29/18 00:10 Venous blood - Right Arm Blood Culture - Preliminary Specimen has been received and culture in progress. No Growth to date. 05/28/18 00:17 Venous blood - Right Hand Blood Culture - Preliminary Specimen has been received and culture in progress. No Growth to date. Laboratory Tests 05/29/18 22:33 Fluid WBC (Manual) 96 Fluid RBC (Manual) 138 Fluid Seg Neutrophil % 50 Fluid Lymphocytes % 17 labs reviewed Phys Exam - Physical Examination Constitutional: NAD HEENT: PERRLA, moist MMs, sclera anicteric, oral pharynx no lesions Neck: no nodes, no JVD, supple, full ROM Respiratory: no wheezing, no rales, no rhonchi, clear to auscultation bilateral reduced at bases Cardiovascular: RRR, no significant murmur, no rub Gastrointestinal: soft, non-tender, no distention, positive bowel sounds Musculoskeletal: no edema, pulses present Neurological: non-focal, normal sensation, moves all 4 limbs Psychiatric: normal affect, A&O x 3 Skin: no rash Dx/Plan (1) Dyspnea Code(s): R06.00 - DYSPNEA, UNSPECIFIED Status: Acute Comment: due to Chronic ,recurrent pleural effusion. (2) Abdominal pain Code(s): R10.9 - UNSPECIFIED ABDOMINAL PAIN Status: Acute Comment: ? peritonitis from PD cathter (3) Hypokalemia Code(s): E87.6 - HYPOKALEMIA Status: Resolved (4) Hepatitis C Code(s): B19.20 - UNSPECIFIED VIRAL HEPATITIS C WITHOUT HEPATIC COMA Status: Chronic Qualifiers: Viral hepatitis chronicity: chronic (5) End stage renal disease Code(s): N18.6 - END STAGE RENAL DISEASE Status: Chronic (6) Diabetes mellitus type 2 in obese Code(s): E11.69 - TYPE 2 DIABETES MELLITUS WITH OTHER SPECIFIED COMPLICATION; E66.9 - OBESITY, UNSPECIFIED Status: Chronic (7) Hypertension Code(s): I10 - ESSENTIAL (PRIMARY) HYPERTENSION Status: Chronic Comment: titrate antihypertensives as needed. - Plan continue antibiotics, respiratory therapy, incentive spirometry, out of bed/ ambulate, DVT proph w/SCDs cont empiric ABx. Follow results of PD fluid.clinically better -: on rocephin and vanco.nephrology following -: no thoracentesis for now for recurrent Pl effusion.monitor.o2 prn -: HD per nephrology .monitor labs. -: F/U w ID as an Op for Rx for hep C/possible cirrhosis. * .am labs Review of Systems - Review of Systems Constitutional: weakness, malaise. negative: fever, chills, sweats, other Respiratory: negative: Cough, Dry, Shortness of Breath, Hemoptysis, SOB with Excertion, Pleuritic Pain, Sputum, Wheezing Cardiovascular: negative: chest pain, palpitations, orthopnea, paroxysmal nocturnal dyspnea, edema, light headedness, other Gastrointestinal: negative: Nausea, Vomiting, Abdominal Pain, Diarrhea, Constipation, Melena, Hematochezia, Other Genitourinary: negative: Dysuria, Frequency, Incontinence, Hematuria, Retention , Other Musculoskeletal: negative: Neck Pain, Shoulder Pain, Arm Pain, Back Pain, Hand Pain, Leg Pain, Foot Pain, Other Skin: negative: Rash, Lesions, Homer, Bruising, Other Neurological: negative: Weakness, Numbness, Incoordination, Change in Speech, Confusion, Seizures, Other - Medications/Allergies Allergies/Adverse Reactions: Allergies Allergy/AdvReac Type Severity Reaction Status Date / Time No Known Allergies Allergy Verified 05/29/18 01:37 Medications: Current Medications Acetaminophen (Tylenol) 650 mg PO Q4H PRN PRN Reason: Headache/Fever or Mild Pain Albuterol/Ipratropium (Duoneb) 3 ml NEB T5IN-QD PRN PRN Reason: SOB &/or Wheezing Amlodipine Besylate (Norvasc) 10 mg PO QAM [facility] Last Admin: 05/30/18 09:14 Dose: 10 mg Atorvastatin Calcium (Lipitor) 10 mg PO HS [facility] Last Admin: 05/29/18 20:43 Dose: 10 mg Benzonatate (Tessalon) 100 mg PO Q4H PRN PRN Reason: Cough Bisacodyl (Dulcolax) 10 mg PO DAILYPRN PRN PRN Reason: Constipation Calcium Acetate (Phoslo) 667 mg PO TID-[facility] Last Admin: 05/30/18 09:14 Dose: 667 mg Calcium Carbonate (Tums) 1,000 mg PO TID-[facility] Last Admin: 05/30/18 09:14 Dose: 1,000 mg Clonidine (Catapres) 0.1 mg PO Q4H PRN PRN Reason: Systolic BP > 160 Dextrose/Water (Dextrose 50%) 25 gm SLOW IVP PRN PRN PRN Reason: Hypoglycemia Ergocalciferol (Drisdol) 1.25 mg PO Q7DAYS [facility] Last Admin: 05/29/18 11:45 Dose: 1.25 mg Ferrous Sulfate (Feosol) 325 mg PO TID [facility] Last Admin: 05/30/18 09:13 Dose: 325 mg Glucagon (Glucagon) 1 mg IM PRN PRN PRN Reason: Hypoglycemia Guaifenesin (Robitussin Sf) 200 mg PO Q4H PRN PRN Reason: Cough Heparin Sodium (Porcine) (Heparin) 5,000 units SC BID [facility] Last Admin: 05/30/18 09:13 Dose: 5,000 units Hydralazine HCl (Apresoline) 10 mg SLOW IVP Q4H PRN PRN Reason: Systolic BP > 170 Dextrose/Water (D5w) 1,000 mls @ 0 mls/hr IV .Q0M PRN PRN Reason: Hypoglycemia Insulin Glargine 14 units/ (Miscellaneous Medication) 0.14 mls @ 0 mls/hr SC DAILY [facility] Last Admin: 05/30/18 09:13 Dose: 0.14 mls Vancomycin HCl 1 gm/ Device 200 mls @ 200 mls/hr IVPB WILLCALL [facility] Vancomycin HCl 750 mg/ Sodium (Chloride) 250 mls @ 250 mls/hr IVPB WILLCALL [facility] Vancomycin HCl 500 mg/ Sodium (Chloride) 100 mls @ 100 mls/hr IVPB WILLCALL JAMI Vancomycin HCl 250 mg/ Sodium (Chloride) 100 mls @ 100 mls/hr IVPB WILLCALL [facility] Insulin Human Lispro (Humalog) 0 units SC .MODERATE SLIDING SC PRN PRN Reason: Moderate Correctional Scale Insulin Human Lispro (Humalog) 0 units SC .BEDTIME SLIDING SC PRN PRN Reason: Bedtime Correctional Scale Iron/Minerals/Multivitamins (Theragran M) 1 tab PO DAILY [facility] Last Admin: 05/30/18 09:15 Dose: 1 tab Lactulose (Lactulose) 10 gm PO DAILYPRN PRN PRN Reason: Constipation Levothyroxine Sodium (Synthroid) 88 mcg PO 0600 [facility] Last Admin: 05/30/18 05:53 Dose: 88 mcg Loratadine (Claritin) 10 mg PO DAILYPRN PRN PRN Reason: Sinus Symptoms Losartan Potassium (Cozaar) 100 mg PO DAILY [facility] Last Admin: 05/30/18 09:15 Dose: 100 mg Miscellaneous Medication (Pharmacy To Dose) 0 each IVPB ASDIR [facility] Nitroglycerin (Nitrostat) 0.4 mg SL Q5MIN PRN PRN Reason: Chest Pain Hold Vancomycin For (Level >20) 0 each FS .AT DIALYSIS [facility] Ondansetron HCl (Zofran) 4 mg IVP Q6H PRN PRN Reason: Nausea/Vomiting Pantoprazole Sodium (Protonix) 40 mg PO DAILY [facility] Last Admin: 05/30/18 09:14 Dose: 40 mg Senna (Senokot) 2 tab PO HSPRN PRN PRN Reason: Constipation Sodium Bicarbonate (Bicarbonate, Sodium) 1,300 mg PO BID [facility] Last Admin: 05/30/18 09:14 Dose: 1,300 mg Sodium Chloride (Flush - Normal Saline) 10 ml IVF PRN PRN PRN Reason: Saline Flush Last Admin: 05/29/18 10:05 Dose: 10 ml Tramadol HCl (Ultram) 50 mg PO Q4H PRN PRN Reason: Moderate Pain (4-6)
[2018-05-30 16:56] LABS: BF Color Colorless; BF RBC Count - Manual 4 /cumm; BF WBC/Nonhematics Ct. - Manua 3 /cumm; Body Fluid Source Dialysate Fluid; Clarity Clear (Clear); Tube # EDTA
[2018-05-30] MEDS ORDERED: Potassium Chloride 20 MEQ TAB PO SCH (19:30)
[2018-05-30] MEDS: Atorvastatin Calcium 10 MG TAB PO SCH (20:11)
--- NOTE | 2018-05-31 00:23 | PRG ---
DATE OF SERVICE: 05/30/2018 SUBJECTIVE: Patient is seen and examined, seems to be feeling much better, noted with the following vital signs. PHYSICAL EXAMINATION: VITAL SIGNS: Afebrile, temperature 98.9, pulse 90, respiratory rate of 18, O2 sat 94%, blood pressur e . HEENT: Unremarkable. CARDIOVASCULAR: First and second heart sounds were heard. RESPIRATORY: Clear to auscultation. DIGESTIVE: Revealed a benign abdomen with positive bowel sounds. EXTREMITIES: No peripheral edema. SKIN: No new gross rash. LYMPHATICS: No peripheral lymphadenopathy. IMPRESSION: 1. End-stage renal disease, hemodialysis dependent. 2. Abdominal discomfort, query cause. 3. Hypokalemia. PLAN: 1. Replete potassium. 2. Continue peritoneal dialysis treatment tonight. 3. I do not believe this patient has peritonitis; therefore, we will not proceed with antibiotics. 4. From the renal standpoint, the patient is good for discharge.
[2018-05-31 05:46] LABS: Anion Gap 13 mmol/L (10-20); BUN (Urea Nitrogen) 42 mg/dL (9.8-20.1); Calc. Creatinine Clearance 11 mL/min (70-130); Calcium 7.7 mg/dL (7.8-10.44); Carbon Dioxide 24 mmol/L (23-31); Chloride 105 mmol/L (98-107); Estimated GFR-MDRD 8; Glucose 196 mg/dL (80-115); Potassium 3.1 mmol/L (3.5-5.1); Sodium 139 mmol/L (136-145)
[2018-05-31] MEDS: Levothyroxine Sodium 88 MCG TAB PO SCH (06:22)
[2018-05-31] MEDS ORDERED: Potassium Chloride 20 MEQ TAB PO SCH (08:00)
[2018-05-31] MEDS: Calcium Carbonate 500 MG ChewTAB PO SCH ×2 (09:09→12:27)
[2018-05-31] MEDS: Calcium Acetate 667 MG CAP PO SCH ×2 (09:09→12:27)
[2018-05-31] MEDS: Amlodipine 10 MG TAB PO SCH (09:09)
[2018-05-31] MEDS: Heparin 5,000 UNITS/ML VIAL SC SCH (09:10)
[2018-05-31] MEDS: Losartan 25 MG TAB PO SCH (09:10)
[2018-05-31] MEDS: Ferrous Sulfate 325 MG TAB PO SCH (09:10)
[2018-05-31] MEDS: Sodium Bicarbonate Tab 325 MG TAB PO SCH (09:10)
[2018-05-31] MEDS: Multivitamin W/ Minerals 1 TAB PO SCH (09:10)
[2018-05-31 09:11] LABS: Vancomycin, Trough 16.5 ug/mL
[2018-05-31] MEDS: Insulin Glargine 14 UNITS in Pre-Filled Syringe 1 EACH SC SCH (09:11)
[2018-05-31 12:32] VITALS: BP 145/75; TEMP 96.9
--- NOTE | 2018-05-31 19:34 | DIS ---
DATE OF ADMISSION: 05/29/2018 DATE OF DISCHARGE: 05/31/2018 PRIMARY CARE PHYSICIAN: Dr. Christa Schumacher. CONDITION AT THE TIME OF DISCHARGE: Stable. DISPOSITION: Home. DISCHARGE MEDICATIONS: Are as follows. Home medications have been restarted, Levemir 14 units daily , Tums daily, Lipitor 10 mg daily, vitamin B12 100 mcg daily, calcium acetate 667 p.o. t.i.d., amlodi pine 10 mg daily, albuterol as needed, Nexium 40 mg daily, vitamin D2 every 7 days, multivitamin elham y, Cozaar 100 mg daily, levothyroxine 88 mcg daily, and ferrous sulfate 325 mg p.o. b.i.d. INHOUSE CONSULTATIONS: 1. Pulmonary medicine, Dr. De Los Santos. 2. Nephrology, Dr. Oreilly. PROCEDURES DONE IN THE HOSPITAL: 1. CT scan of the abdomen and pelvis upon presentation to rule out peritonitis without IV contrast. It showed new moderate right-sided pleural effusion and right basilar atelectasis. 2. Maintenance peritoneal dialysis. DISCHARGE DIAGNOSES: 1. Abdominal pain, nausea and vomiting, resolved. 2. Shortness of breath from chronic right-sided pleural effusion, resolved. 3. Chronic hepatitis C, still awaiting treatment because of insurance reasons. 4. Chronic right-sided pleural effusion. 5. End-stage renal disease on peritoneal dialysis. 6. Hypokalemia. 7. Diabetes mellitus. 8. Hypothyroidism. 9. Hypertension. 10. Anemia of chronic kidney disease. HOSPITAL COURSE: Ms. Morfin is a 63-year-old female with known history of end-stage renal disease on peritoneal dialysis as well as history of hepatitis C with resultant transudative right-sided pleura l effusion, status post thoracentesis on 04/12/[address] De Los Santos, who presented to the emergency room with complaints of abdominal pain, vomiting, shortness of breath, and diarrhea. Upon presentation, s he was hemodynamically stable and oxygen saturation was 98% on room air. CT scan of the abdomen and pelvis was done in the ER which showed right-sided pleural effusion and atelectasis. She was given I V Rocephin and Nephrology and Pulmonary Medicine was consulted by the emergency room physician. She was admitted for further evaluation of her dyspnea and abdominal pain. There was question of possibl e peritonitis with relation to PD catheter and IV antibiotics were continued. Please see admission h istory and physical for further details. HOSPITAL COURSE: The patient actually had significant improvement in her symptoms quite quickly. Dr wGendolyn Oreilly, wage adjuster saw the patient and sent peritoneal fluid to cell count, culture and diffe rential. Initial pleural fluid had 96 WBCs, but the repeat peritoneal fluid next day on 05/30/2018 h ad only 3 WBCs. Cultures were sent and were negative until date. Blood cultures were also sent whic h were also negative. Antibiotics were interrupted and stopped by Dr. Oreilly as there was no clear evidence of peritoni tis. Dr. De Los Santos saw the patient and once again recommended that she should not be undergoing repeat th oracentesis as this is a transudative fluid and will accumulate back until her Hep C is being treated . I discussed this with the Infectious Disease physician, Dr. Rosales, who reported that he has been h aving a hard time for her insurance to approve her hepatitis C medications. Unfortunately without th e treatment of hepatitis C, the patient's symptoms will be recurrent until her pleural effusion, prog ressive to the point where she undergoes respiratory failure. I think she is appropriate for treatme nt for hepatitis C and it is urgent in a sense. I have deferred this to Dr. Rosales and I have alerted the patient to follow up with him as soon as possible. As of this morning, she is feeling back to her baseline and infection has been ruled out. She will b e discharged home. Home health was ordered for her, but her insurance does not cover for it, so she will discuss this further with her primary care physician, Dr. Schumacher. She was seen and examined prior to discharge. PHYSICAL EXAMINATION: VITAL SIGNS: Temperature 96.9, pulse of 92, respirations 17, saturating 98% on room air, blood press ure 145/75. GENERAL: No acute distress, awake, alert, oriented x3, sitting comfortably on chair. CHEST: Clear to auscultation bilaterally with some reduced breath sounds at bases. She is tender to percussion on the right lung. Rate and rhythm is regular. No abdominal distention or tenderness. LABORATORY EXAMINATION: 1. Blood culture negative x2 so far. 2. Peritoneal fluid culture pending at this time, negative so far. She did not have any leukocytosi s or signs and symptoms of sepsis or systemic inflammatory response syndrome. She will follow up tip Oreilly for maintenance hemodialysis. Her [id number] does the hemodialysis at home for her. Discharge plan was discussed with the patient and she verbalized understanding. Total time spent in the discharge of this patient 32 minutes.
--- NOTE | 2018-06-09 14:22 | EKG ---
Test Reason : Blood Pressure : / mmHG Vent. Rate : 092 BPM Atrial Rate : 092 BPM P-R Int : 098 ms QRS Dur : 080 ms QT Int : 380 ms P-R-T Axes : 019 -41 045 degrees QTc Int : 469 ms Sinus rhythm with short OH Left axis deviation Abnormal ECG No ST elevation/MS Confirmed by TRAN GARRISON M.D. ([id number]), state editor HORACIO NEWMAN ([id number]) on 06/09/2018 2:22:28 PM Referred By: Confirmed By:TRAN GARRISON M.D.
== END 2018-05-31 14:17 | disposition home or self-care (01) | DRG 186 ==
LOC: ERS 20:22 → 2SW 05-29 00:01 → 2NO 05-30 16:57
PROVIDERS: ADMIT Hospitalist; ATTEND Hospitalist
PROC: 3E1M39Z Irrigation of Peritoneal Cavity using Dialysate, Percutaneous Approach (ICD-10-PCS; principal; 2018-05-30)
DX: J90 Pleural effusion, not elsewhere classified (principal); N18.6 End stage renal disease; I12.0 Hypertensive chronic kidney disease with stage 5 chronic kidney disease or end stage renal disease; B18.2 Chronic viral hepatitis C; E11.22 Type 2 diabetes mellitus with diabetic chronic kidney disease; Z99.2 Dependence on renal dialysis; Z79.4 Long term (current) use of insulin; E87.6 Hypokalemia; E03.9 Hypothyroidism, unspecified; D63.1 Anemia in chronic kidney disease; E66.9 Obesity, unspecified; K74.60 Unspecified cirrhosis of liver; Z66 Do not resuscitate; Z68.25 Body mass index [BMI] 25.0-25.9, adult
CPT/HCPCS: 36247; 36415; 36416; 71045; 74176; 75625; 75716; 76942; 80048; 80053; 80061; 80202; 82553; 83605; 83690; 83880; 84484; 85025; 85060; 85610; 85730; 87040; 87070; 87205; 89051; 90945; 93005; 96365; C1769; G0257; G8978-GP-CJ; G8979-GP-CJ; G8980-GP-CJ; J1644; J3370; J7050

== ENCOUNTER → 2018-05-28 | Day surgery (SDC) | payer OTHER ==
[2018-05-25 16:06] VITALS: BMI 26.6
[~2018-05-28] MED LIST changes: +Diazepam 5 MG TAB ONE; +Iopamidol 370 76% 100 ML VIAL ONE; -Lidocaine 1% (PF) 30 ML VIAL ONE
[2018-05-28 06:56] LABS: INR-International Normal Ratio 0.9; PTT 26.9 SEC (22.9-36.1); Prothrombin Time 12.5 SEC (12.0-14.7)
[2018-05-28 07:02] LABS: Cardiac Risk 1.6 (Less than 4.5)
--- NOTE | 2018-05-28 09:40 | OP ---
DATE OF PROCEDURE: 05/28/2018 SURGEON: Aroldo Jones M.D. PREPROCEDURE DIAGNOSIS: Claudication. POST-PROCEDURE DIAGNOSIS: Mild to moderate peripheral vascular disease. RECOMMENDATION: Medical therapy. PROCEDURE: 1. Aortogram. 2. Bilateral aortofemoral run off. COMPLICATIONS: None. ESTIMATED BLOOD LOSS: ____ mL. DETAILS: The patient was prepped and draped in the usual sterile fashion. In the right femoral arter y under ultrasound guidance a micropuncture sheath was employed. Contra catheter was used for the ao rtogram. The stent was placed in the contralateral segment successfully using a floppy Glidewire. I t was then placed into the proximal portion of the SFA with images performed. FINDINGS: The aorta has no significant stenosis, aneurysm present. Left lower extremity - the commo n iliac, external iliac, common femoral artery had no significant disease. The SFA and popliteal art morro are free of significant disease. The posterior tibial artery does have 60-70% stenosis. The per bautista and anterior tibial artery have no significant disease. Right lower extremity - the common iliac, external iliac, common femoral artery had no significant di sease. The SFA and popliteal artery are free of significant disease. There is 3-vessel runoff to th e foot. Please note there is significant calcification present within the aorta, iliac arteries and SFA and p opliteal artery, but still no significant disease and almost.
== END ==
LOC: CCL 05:52
PROVIDERS: ATTEND Internal Medicine Cardiovascular Disease
DX: I70.212 Atherosclerosis of native arteries of extremities with intermittent claudication, left leg (principal); E11.22 Type 2 diabetes mellitus with diabetic chronic kidney disease; I12.0 Hypertensive chronic kidney disease with stage 5 chronic kidney disease or end stage renal disease; N18.6 End stage renal disease; E78.00 Pure hypercholesterolemia, unspecified; Z99.2 Dependence on renal dialysis; Z79.899 Other long term (current) drug therapy
CPT/HCPCS: 36247; 36415; 75625; 75716; 76942; 80061; 85610; 85730; C1769; J1644

== ENCOUNTER 2018-07-30 10:17 | Outpatient (CLI) | payer OTHER ==
--- NOTE | 2018-07-30 12:17 | ULT ---
RIGHT UPPER QUADRANT ULTRASOUND: Date: 07-30-18 Comparison: None. History: Abnormal laboratory assessment. Technique: Multiplanar grayscale sonographic imaging of the right upper quadrant obtained. FINDINGS: Gallbladder is surgically absent. Imaged pancreas is grossly unremarkable. The hepatic parenchyma is mildly echogenic and heterogenous, suggesting hepatocellular disease. There is a right pleural effusion. Right kidney measures 10.4 cm craniocaudal dimension and demonstrates no hydronephrosis or mass. The grocery caddy reports a negative Hernandez's sign. CBD measures 6 mm, within normal limits. IMPRESSION: 1. Right pleural effusion. 2. Status post cholecystectomy. POS: [facility]
== END 2018-07-30 10:18 | disposition home or self-care (01) ==
LOC: BICULT 10:17
PROVIDERS: ATTEND Internal Medicine
DX: R74.8 Abnormal levels of other serum enzymes (principal); J90 Pleural effusion, not elsewhere classified; Z90.49 Acquired absence of other specified parts of digestive tract
CPT/HCPCS: 36415; 76705; 82040; 82310; 82374; 82435; 82565; 83540; 83735; 84100; 84132; 84295; 84466; 84520; 85018; 87340

== ENCOUNTER 2018-08-13 14:59 | Emergency (ER) | payer MEDICARE, OTHER | END 2018-08-13 16:59 | disposition left against medical advice (07) | LOC: ERS 14:59 | DX: Z53.21 Procedure and treatment not carried out due to patient leaving prior to being seen by health care provider (principal) ==

== ENCOUNTER 2018-08-13 16:48 | Inpatient (IN) | payer MEDICARE, OTHER ==
[2018-08-13 17:43] LABS: #Basophils 0.1 thou/uL (0.0-0.2); #Eosinphils 0.2 thou/uL (0.0-0.7); #Lymphocytes 1.9 thou/uL (1.20-3.40); #Monocytes 0.4 thou/uL (0.11-0.59); %Basophils 1.7 % (0.0-1.0); %Eosinophils 2.1 % (0.0-10.0); %Lymphocytes 21.4 % (21.0-51.0); %Monocytes 5.1 % (0.0-10.0); %Neutrophils 69.7 % (42.0-75.0); Hemoglobin 12.2 g/dL (12.0-16.0); Mean Corpuscular HGB CONC 31.6 g/dL (32.0-36.0); Mean Corpuscular Hemoglobin 26.4 pg (27.0-31.0); Mean Corpuscular Volume 83.7 fL (78.0-98.0); Mean Platelet Volume 9.6 fL (7.4-10.4); Platelet Count 128 thou/uL (130-400); RBC Distribution Width 13.1 % (11.5-14.5); White Blood Cell (WBC) Count 8.7 thou/uL (4.8-10.8)
[2018-08-13 17:45] LABS: INR-International Normal Ratio 0.9; PTT 29.1 SEC (22.9-36.1); Prothrombin Time 12.2 SEC (12.0-14.7)
[2018-08-13 17:49] LABS: ALT (SGPT) 57 U/L (8-55); AST (SGOT) 52 U/L (5-34); Albumin 2.7 g/dL (3.4-4.8); Alkaline Phosphatase 267 U/L (40-150); Anion Gap 19 mmol/L (10-20); BUN (Urea Nitrogen) 49 mg/dL (9.8-20.1); Bilirubin, Total 0.4 mg/dL (0.2-1.2); Calc. Creatinine Clearance 0 mL/min (70-130); Calcium 8.1 mg/dL (7.8-10.44); Carbon Dioxide 19 mmol/L (23-31); Chloride 103 mmol/L (98-107); Estimated GFR-MDRD 6; Globulin 3.6 g/dL (2.4-3.5); Glucose 288 mg/dL (80-115); Lipase 152 U/L (8-78); Potassium 3.9 mmol/L (3.5-5.1); Protein, Total 6.3 g/dL (6.0-8.3); Sodium 137 mmol/L (136-145)
[2018-08-13 22:34] LABS: BF Color Red; Body Fluid Source PERITONEAL FLUID; Clarity Cloudy/Turbid (Clear); RBC Background Count 0.004; RBC Count-Automated 46000 /cumm; Tube # 1; WBC/NonHematic-Auto 234 /cumm
[2018-08-13 22:55] LABS: BF Segmented Neutrophils 30 %; Cell Count Non Hematic 58 %; Eosinophils 1 %; Lymphocytes 11 %
[2018-08-13] MEDS: Gentamicin 80 MG/2 ML VIAL FS SCH (23:13)
[2018-08-13 23:23] VITALS: BMI 24.4
[2018-08-14] MEDS ORDERED: Morphine 2 MG/ML SYRINGE SLOW IVP SCH (01:00)
[2018-08-14] MEDS ORDERED: Morphine 2 MG/ML SYRINGE ONE (01:05)
[2018-08-14] MEDS ORDERED: Dextrose 50% Abboject 50 ML SYRINGE IVP PRN (06:11)
[2018-08-14] MEDS ORDERED: Dextrose 5% in Water 1,000 ML IV PRN ×2 (06:11→12:24)
[2018-08-14] MEDS: HumaLOG 300 UNITS/3 ML VIAL SC PRN (06:46)
[2018-08-14] MEDS ORDERED: Ondansetron PF 4 MG/2 ML Vial IVP PRN (12:24)
[2018-08-14] MEDS ORDERED: Senokot S 8.6-50 MG TAB PO PRN (12:24)
[2018-08-14] MEDS ORDERED: Calcium Carbonate 500 MG ChewTAB PO PRN (12:24)
[2018-08-14] MEDS ORDERED: HumaLOG 300 UNITS/3 ML VIAL SC PRN (12:24)
[2018-08-14] MEDS ORDERED: Bisacodyl 10 MG SUPP PR PRN (12:24)
[2018-08-14] MEDS ORDERED: Acetaminophen 325 MG TAB PO PRN (12:24)
[2018-08-14] MEDS ORDERED: Ondansetron ODT 4 MG TAB PO PRN (12:24)
[2018-08-14] MEDS ORDERED: PROVENTIL INHALER 6.7 G (200 INHALATIONS) INH PRN (12:27)
[2018-08-14] MEDS ORDERED: hydrALAZINE 20 MG/ML VIAL SLOW IVP PRN (12:42)
--- NOTE | 2018-08-14 13:07 | HP ---
DATE OF ADMISSION: 08/14/2018 PRIMARY CARE PHYSICIAN: Christa Schumacher MD CHIEF COMPLAINT: Abdominal discomfort. HISTORY OF PRESENT ILLNESS: Patient is a 63-year-old female with end-stage renal disease, on periton eal dialysis, presented to the hospital with abdominal discomfort that started around 04:00 a.m. yest moodysantino. The pain was intermittent that at first, however, became more or less constant. It was initi ally suprapubic and in the right lower quadrant; however, later it became generalized. The pain was aggravated by movement. She had intermittent chills; however, denies any fever, nausea, vomiting, di arrhea, or constipation. The family also reported that they saw some blood in the bag during the per itoneal dialysis. She denies any chest pain, palpitations, lightheadedness, or syncope. PAST MEDICAL HISTORY: 1. End-stage renal disease, on peritoneal dialysis. 2. Diabetes mellitus, type 2. 3. Depression. 4. Hypertension. 5. Untreated chronic hepatitis C. 6. Mild intermittent asthma. 7. Dyslipidemia. PAST SURGICAL HISTORY: 1. Cholecystectomy. 2. Hysterectomy. 3. Hernia repair x2. 4. Peritoneal dialysis catheter placement. ALLERGIES: No known drug allergies. CURRENT HOME MEDICATIONS: Family to get the accurate list of medications. She is unable to recall a ll of her medications exactly. FAMILY HISTORY: Positive for hypertension, diabetes, brain cancer, and cirrhosis. SOCIAL HISTORY: Patient currently lives at home with her family. She denies any current use of smok ing, alcohol, or drug use. CODE STATUS: She is FULL CODE, makes her own decision with the help of her family. REVIEW OF SYSTEMS: The following complete review of systems was negative, unless otherwise mentioned in the HPI or below: Constitutional: Weight loss or gain, ability to conduct usual activities. Sk in: Rash, itching. Eyes: Double vision, pain. ENT/Mouth: Nose bleeding, neck stiffness, pain, te nderness. Cardiovascular: Palpitations, dyspnea on exertion, orthopnea. Respiratory: Shortness of breath, wheezing, cough, hemoptysis, fever, or night sweats. Gastrointestinal: Poor appetite, abdo doris pain, heartburn, nausea, vomiting, constipation, or diarrhea. Genitourinary: Urgency, frequen cy, dysuria, nocturia. Musculoskeletal: Pain, swelling. Neurologic/Psychiatric: Anxiety, depressi on. Allergy/Immunologic: Skin rash, bleeding tendency. PHYSICAL EXAMINATION: VITAL SIGNS: In the emergency room, temperature 98.1, respirations of 16, pulse rate of 87, blood pr essure of 138/78 with O2 saturation 98% on room air. GENERAL: A 63-year-old female in no apparent distress at rest. The pain gets worse on movement. HEENT: Head: Atraumatic, normocephalic. Sclerae are anicteric. Moist mucous membrane, no oral les ion. NECK: Supple, no JVD appreciated. No carotid bruit. LUNGS: Clear to auscultation bilaterally except for decreased air entry at bases. No significant rh onchi or rales. HEART: S1 and S2 present. Regular rate and rhythm. No heaves or pulsation. ABDOMEN: Diffusely tender, soft. Bowel sounds present. No guarding or rigidity, no costovertebral angle tenderness. EXTREMITIES: No edema or calf tenderness. NEUROLOGIC: Grossly nonfocal. Moves all 4 extremities. PSYCHIATRY: Alert, awake, oriented x3. SKIN: Warm and dry. LYMPH NODES: No palpable lymph nodes in the neck. PERIPHERAL VASCULAR: Radial pulses palpable bilaterally. MUSCULOSKELETAL: No joint swelling or tenderness. LABORATORY AND X-RAY FINDINGS: 1. CBC showed WBC 8.7 with hemoglobin 12.2, hematocrit 38.5, platelets 128. 2. PT, INR, PTT normal range. Chemistries showed sodium 137, potassium 3.9, chloride 103, bicarbona te 19, BUN 49, creatinine 7.18, AST 52, ALT 57, alkaline phosphatase 267, albumin 2.7. 3. Peritoneal fluid studies showed 234 WBCs with 30% neutrophils. The fluid was cloudy and turbid. RBC was 46,000. Peritoneal fluid cultures pending at this time. 4. Right upper quadrant ultrasound earlier this month showed right-sided pleural effusion. 5. Chest x-ray, last hospitalization, showed moderate right pleural effusion with right basilar opac ity. IMPRESSION AND PLAN: 1. Abdominal discomfort with suspected peritoneal dialysis catheter-associated peritonitis. She als o had some bleeding in the peritoneal dialysis catheter. She is currently on vancomycin and gentamic in given intraperitoneally per Nephrology. This will be continued. Per Nephrology recommendation, w e will also consult General Surgery to rule out trauma from the peritoneal dialysis catheter. A.m. l abs. 2. Diabetes mellitus, type 2. We will resume her home medications once confirmed. We will start he r on sliding scale. 3. Chronic hepatitis C. Patient was advised to follow up with Dr. Rosales. 4. End-stage renal disease, on peritoneal dialysis. Plan as discussed above. 5. Hypothyroidism. We will continue levothyroxine. 6. Hypertension. We will resume oral medications once confirmed. 7. Chronic anemia, secondary to renal insufficiency. 8. Chronic right-sided pleural effusion, status post thoracentesis earlier this year. 9. Abnormal liver function tests secondary to chronic hepatitis C. 10. Hypoalbuminemia/mild protein-calorie malnutrition. 11. Mild persistent asthma. 12. Depression without any suicidal ideation. Plan of care was discussed with the patient in detail. She stated understanding.
[2018-08-14] MEDS: Calcium Acetate 667 MG CAP PO SCH (16:45)
[2018-08-14] MEDS: Calcium Carbonate 500 MG ChewTAB PO SCH (16:45)
--- NOTE | 2018-08-14 16:45 | PDOC.GSCN ---
Surgery Consult: HPI - Consult details Date: 08/14/18 Time: 16:43 Reason for consult: abdominal pain History of present illness: 08/14/18 16:43 Patient was awakened yesterday morning at 4 AM with pain in her lower abdomen. It was better when she sat up but then came back when she laid down. When she got up to disconnect her peritoneal dialysis machine she noticed that the dialysate drainage was bloody which had never been previously. She states that the color was dark. She came into the emergency room due to the pain and the bleeding and was admitted to the medicine service. She underwent peritoneal dialysis again last night and the drainage was still bloody but less so than yesterday. She states she is still having a little discomfort in the lower abdomen but it is not as severe as before. She has not had any lightheadedness, dizziness, shortness of breath or chest pain when ambulating. She has not required transfusion. She has not had any fevers or chills and she is eating normally and having normal bowel movements. She was started on peritoneal antibiotics for presumed catheter associated peritonitis but no bacteria were seen on Gram stain and so far cultures are negative. Surgery Consult: ROS - Review of Systems Constitutional: reports: as per HPI, fatigue. denies: anorexia, chills, daytime sleepiness, excessive sweating, fever(s), frequent falls, headache(s), increased appetite, lethargy, malaise, night sweats, stops breathing during sleep, snoring, weakness, weight gain, weight loss, other HEENT: denies: Head Aches, Visual Changes, Eye Pain, Ear Pain, Dysphasia, Sinus Congestion, Post Nasal Drip, Sore Throat, Other Breast: reports: as per HPI. denies: change in shape, skin changes, swelling, mass, pain, nipple discharge, other Cardiovascular: reports: regular rate and rhythm. denies: irregular rate, no murmur, other Respiratory: reports: as per HPI. denies: chest congestion, cough, dyspnea, hemoptysis, dyspnea on exertion, wheezing, snoring, stridor, pain on inspiration , excessive phlegm production, change in phlegm color, pain with cough, other Gastrointestinal: reports: as per HPI, abdominal pain. denies: belching, bloating, change in bowel habits, coffee ground emesis, constipation, cramping, change in stool character, diarrhea, dyspepsia, dysphagia, excessive flatus, early satiety, fecal incontinence, heartburn, hematemesis, hematochezia, loose stool, melena, nausea, odynophagia, tenesmus, vomiting, other Musculoskeletal: reports: as per HPI. denies: abnormal gait, arthralgias, atrophy, back pain, defomity, joint swelling, loss of height, limited range of motion, muscle cramps, muscle weakness, myalgias, neck pain, numbness, radiating pain into limb, stiffness, tingling, other Integumentary: reports: as per HPI. denies: acne, alopecia, bleeding lesions, change in hair, changing lesions, change in nails, change in pigmentation, dry skin, erythema, furuncle, lesions, non-healing lesions, new lesions, photosensitivity, pruritus, rash, sores, skin pain, striae, skin ulcer, swelling , unusual bruising, wounds, jaundice, other Neurologial: reports: as per HPI. denies: abnormal gait, abnormal hearing, abnormal movements, abnormal speech, behavioral changes, confusion, convulsions , dizziness, disequilibrium, frequent falls, focal weakness, headache(s), lack of coordination, loss of vision, memory loss, numbness, paresthesias, restless legs, radicular pain, sensory deficit, syncope, tingling, tremor(s), vertigo, weakness, other visual disturbances, other Psychiatric: reports: as per HPI. denies: auditory halluncinations, anhedonia, anxiety, abnormal sleep pattern, behavioral changes, change in appetite, change in libido, confusion, difficulty concentrating, depression, hallucinations, homicidal ideation, hopelessness, irritability, mood swings, paranoia, panic attacks, suicidal ideation, visual hallucinations, tactile, other Surgery Consult: [facility] Past Medical History: End-stage renal failure on peritoneal dialysis. No adequate veins for fistula. History of hepatitis C with ascites. Diabetes, hypertension, asthma, anemia of chronic disease. Past Surgical History: Open cholecystectomy and ventral hernia repair, EGD and colonoscopy, hysterectomy, laparoscopic PD catheter placement, exploration for AV fistula with no adequate vein - Past Family History Family history: reviewed and not pertinent - Past Social History Smoking Status: Never smoker Alcohol Use: none Drug Use History: none Living Situation: independent Surgery Consult: Exam - Vital signs Vital signs: Vital Signs - Most Recent Temp Pulse Resp BP Pulse Ox 97.8 F 93 18 151/63 H 93 L 08/14/18 11:00 08/14/18 11:00 08/14/18 11:00 08/14/18 11:00 08/14/18 11:00 - Physical Exam General: moderate distress, no distress, severe distress, well developed, well nourished Eye: normal ocular movement, PERRL ENT: no congestion, no hearing loss, normal mucosa, normal nares, normal pinna Neck: no bruits, no lymphadectomy, no masses, no donna distention, trachea midline Respiratory: clear to auscultation, clear to percussion, normal expansion, normal respiratory effort Abdomen: soft, tender, surgical scars, other (Mild tenderness to palpation in the right lower quadrant greater than left lower quadrant greater than upper abdomen. No rigidity rebound or guarding. Peritoneal dialysis catheter exit site is clean) Hernia: none Integumentary: no abnormal pigmentation, no growths, no rash Neurologic: normal coordination, normal sensation Musculoskeletal: normal gait, normal posture Psychiatric: memory intact, oriented to time, oriented to person, oriented to place, speech is normal Surgery Consult: Meds - Medications MAR Reviewed: Yes Medications: Current Medications Acetaminophen (Tylenol) 650 mg PO Q4H PRN PRN Reason: Headache/Fever/Mild Pain (1-3) Albuterol Sulfate (Proventil Hfa) 2 puff INH Q4H PRN PRN Reason: Dyspnea Amlodipine Besylate (Norvasc) 10 mg PO QAM [facility] Atorvastatin Calcium (Lipitor) 10 mg PO HS [facility] Bisacodyl (Dulcolax) 10 mg [place] DAILYPRN PRN PRN Reason: Constipation Calcium Acetate (Phoslo) 667 mg PO TID-WM [facility] Calcium Carbonate (Tums) 1,000 mg PO Q4H PRN PRN Reason: Heartburn or Indigestion Calcium Carbonate (Tums) 1,000 mg PO TID-WM [facility] Dextrose/Water (Dextrose 50%) 25 gm IVP PRN PRN PRN Reason: HYPOGLYCEMIA PROTOCOL Famotidine (Pepcid) 20 mg PO DAILY [facility] Glucagon (Glucagon) 1 mg IM PRN PRN PRN Reason: HYPOGLYCEMIA PROTOCOL Hydralazine HCl (Apresoline) 10 mg SLOW IVP Q4H PRN PRN Reason: SBP Greater Than 180 Dextrose/Water (D5w) 1,000 mls @ 0 mls/hr IV INF PRN PRN Reason: HYPOGLYCEMIA PROTOCOL Dextrose/Water (D5w) 1,000 mls @ 0 mls/hr IV .Q0M PRN PRN Reason: Hypoglycemia Insulin Glargine 10 units/ (Miscellaneous Medication) 0.1 mls @ 0 mls/hr [place] DAILY [facility] Insulin Human Lispro (Humalog) 0 units SC .MODERATE SLIDING SC PRN; Protocol PRN Reason: MODERATE SLIDING SCALE Last Admin: 08/14/18 06:46 Dose: 8 unit Insulin Human Lispro (Humalog) 0 units SC .BEDTIME SLIDING SC PRN PRN Reason: Bedtime Correctional Scale Levothyroxine Sodium (Synthroid) 88 mcg PO 0600 [facility] Losartan Potassium (Cozaar) 100 mg PO DAILY [facility] Ondansetron HCl (Zofran Odt) 4 mg PO Q6H PRN PRN Reason: Nausea/Vomiting Ondansetron HCl (Zofran) 4 mg IVP Q6H PRN PRN Reason: Nausea/Vomiting Pantoprazole Sodium (Protonix) 40 mg PO DAILY [facility] Senna/Docusate Sodium (Senokot S) 2 tab PO BID PRN PRN Reason: Constipation Sodium Bicarbonate (Bicarbonate, Sodium) 1,300 mg PO BID [facility] Sodium Chloride (Flush - Normal Saline) 10 ml IVF Q12HR [facility] Sodium Chloride (Flush - Normal Saline) 10 ml IVF PRN PRN PRN Reason: Saline Flush - Allergies Allergies/Adverse Reactions: Allergies Allergy/AdvReac Type Severity Reaction Status Date / Time No Known Allergies Allergy Verified 05/29/18 01:37 Surgery Consult: Results - Labs Result Diagrams: 08/13/18 17:18 08/13/18 17:18 Lab results: Laboratory Results WBC 8.7 thou/uL (4.8-10.8) 08/13/18 17:18 RBC 4.60 mill/uL (4.20-5.40) 08/13/18 17:18 Hgb 12.2 g/dL (12.0-16.0) 08/13/18 17:18 Hct 38.5 % (36.0-47.0) 08/13/18 17:18 MCV 83.7 fL (78.0-98.0) 08/13/18 17:18 MCH 26.4 pg (27.0-31.0) L 08/13/18 17:18 MCHC 31.6 g/dL (32.0-36.0) L 08/13/18 17:18 RDW 13.1 % (11.5-14.5) 08/13/18 17:18 Plt Count 128 thou/uL (130-400) L 08/13/18 17:18 MPV 9.6 fL (7.4-10.4) 08/13/18 17:18 Neutrophils % 69.7 % (42.0-75.0) 08/13/18 17:18 Lymphocytes % 21.4 % (21.0-51.0) 08/13/18 17:18 Monocytes % 5.1 % (0.0-10.0) 08/13/18 17:18 Eosinophils % 2.1 % (0.0-10.0) 08/13/18 17:18 Basophils % 1.7 % (0.0-1.0) H 08/13/18 17:18 Neutrophils # 6.0 thou/uL (1.40-6.50) 08/13/18 17:18 Lymphocytes # 1.9 thou/uL (1.20-3.40) 08/13/18 17:18 Monocytes # 0.4 thou/uL (0.11-0.59) 08/13/18 17:18 Eosinophils # 0.2 thou/uL (0.0-0.7) 08/13/18 17:18 Basophils # 0.1 thou/uL (0.0-0.2) 08/13/18 17:18 PT 12.2 SEC (12.0-14.7) 08/13/18 17:18 INR 0.9 08/13/18 17:18 APTT 29.1 SEC (22.9-36.1) 08/13/18 17:18 Sodium 137 mmol/L (136-145) 08/13/18 17:18 Potassium 3.9 mmol/L (3.5-5.1) 08/13/18 17:18 Chloride 103 mmol/L (98-107) 08/13/18 17:18 Carbon Dioxide 19 mmol/L (23-31) L 08/13/18 17:18 Anion Gap 19 mmol/L (10-20) 08/13/18 17:18 BUN 49 mg/dL (9.8-20.1) H 08/13/18 17:18 Creatinine 7.18 mg/dL (0.6-1.1) H 08/13/18 17:18 Estimated GFR (MDRD) 6 08/13/18 17:18 Glucose 288 mg/dL (80-115) H 08/13/18 17:18 POC Glucose 112 mg/dL (70-110) H 08/14/18 11:13 Calcium 8.1 mg/dL (7.8-10.44) 08/13/18 17:18 Total Bilirubin 0.4 mg/dL (0.2-1.2) 08/13/18 17:18 AST 52 U/L (5-34) H 08/13/18 17:18 ALT 57 U/L (8-55) H 08/13/18 17:18 Alkaline Phosphatase 267 U/L (40-150) H 08/13/18 17:18 Serum Total Protein 6.3 g/dL (6.0-8.3) 08/13/18 17:18 Albumin 2.7 g/dL (3.4-4.8) L 08/13/18 17:18 Globulin 3.6 g/dL (2.4-3.5) H 08/13/18 17:18 Albumin/Globulin Ratio 0.8 g/dL (1.2-2.2) L 08/13/18 17:18 Lipase 152 U/L (8-78) H 08/13/18 17:18 Fluid Source PERITONEAL FLUID 08/13/18 17:37 Fluid Tube Number 1 08/13/18 17:37 Fluid Color Red 08/13/18 17:37 Fluid Clarity Cloudy/Turbid (Clear) H 08/13/18 17:37 Fluid WBC 234 /cumm 08/13/18 17:37 Fluid RBC 82954 /cumm 08/13/18 17:37 Fluid Seg Neutrophil % 30 % 08/13/18 17:37 Fluid Lymphocytes % 11 % 08/13/18 17:37 Fluid Eosinophils % 1 % 08/13/18 17:37 Fluid Diff Path Review 08/13/18 17:37 Non-Hematological % 58 % 08/13/18 17:37 Fluid Comment Note: 08/13/18 17:37 Blood Type O POSITIVE 08/13/18 17:18 Antibody Screen NEGATIVE 08/13/18 17:18 Surgery Consult: A/P - Problem (1) Abdominal pain Current Visit: No Code(s): R10.9 - UNSPECIFIED ABDOMINAL PAIN Status: Acute - Plan Plan: Patient with abdominal pain and bleeding likely associated with her peritoneal dialysis catheter. She may have catheter associated peritonitis although cultures are still negative. The other possibility is just mechanical irritation the lead to a minor episode of bleeding which caused the abdominal pain. Other sources of bleeding are less likely but include spontaneous bleeding or infectious etiology. She doesn't have any other GI complaints which make diverticulitis or enteritis unlikely. She is not on any blood thinners, so spontaneous bleeding is also less likely. It appears that the bleeding has stopped since her hemoglobin and hematocrit have been stable and since the dialysate was clear on her repeat dialysis last night. As long as the dialysate continues to clear, no further intervention or investigation is recommended. I think the chances of finding a source of the bleeding on CT are negligible, and laparoscopy would also be unlikely to identify the source and she would have to go on hemodialysis with a tunneled catheter while healing from laparoscopy. If the bleeding seems to be increasing either by a drop in her hematocrit or by more blood seen in the dialysate fluid, I would recommend getting a CT as the first step. I will continue to follow her with the medicine team. If no further evidence of bleeding she could likely be discharged tomorrow.
[2018-08-14] MEDS ORDERED: Calcium Acetate 667 MG CAP PO SCH (17:00)
[2018-08-14] MEDS ORDERED: Gentamicin 80 MG/2 ML VIAL FS SCH (19:00)
[2018-08-14] MEDS: Gentamicin 80 MG/2 ML VIAL FS SCH (19:06)
[2018-08-14] MEDS: Atorvastatin Calcium 10 MG TAB PO SCH (20:43)
[2018-08-14] MEDS: Sodium Bicarbonate Tab 325 MG TAB PO SCH (20:43)
[2018-08-14] MEDS ORDERED: Non-Formulary Item 1 EACH (Sodium Bicarbonate [Sodium Bicarbonate] 1,300 MG) PO SCH (21:00)
[2018-08-15] MEDS: Levothyroxine Sodium 88 MCG TAB PO SCH (04:54)
[2018-08-15] MEDS: HumaLOG 300 UNITS/3 ML VIAL SC PRN (04:56)
[2018-08-15 05:32] LABS: #Eosinphils 0.1 thou/uL (0.0-0.7); #Lymphocytes 1.4 thou/uL (1.20-3.40); #Monocytes 0.3 thou/uL (0.11-0.59); #Neutrophils 3.2 thou/uL (1.40-6.50); %Basophils 0.5 % (0.0-1.0); %Eosinophils 2.8 % (0.0-10.0); %Lymphocytes 27.3 % (21.0-51.0); %Monocytes 5.5 % (0.0-10.0); %Neutrophils 63.9 % (42.0-75.0); Mean Corpuscular HGB CONC 32.6 g/dL (32.0-36.0); Mean Corpuscular Hemoglobin 27.8 pg (27.0-31.0); Mean Corpuscular Volume 85.2 fL (78.0-98.0); Mean Platelet Volume 8.4 fL (7.4-10.4); Platelet Count 126 thou/uL (130-400); RBC Distribution Width 13.1 % (11.5-14.5)
[2018-08-15 05:57] LABS: ALT (SGPT) 42 U/L (8-55); AST (SGOT) 44 U/L (5-34); Alkaline Phosphatase 197 U/L (40-150); Anion Gap 12 mmol/L (10-20); BUN (Urea Nitrogen) 38 mg/dL (9.8-20.1); Bilirubin, Total 0.3 mg/dL (0.2-1.2); Calc. Creatinine Clearance 10 mL/min (70-130); Calcium 7.5 mg/dL (7.8-10.44); Carbon Dioxide 27 mmol/L (23-31); Chloride 102 mmol/L (98-107); Estimated GFR-MDRD 7; Globulin 2.6 g/dL (2.4-3.5); Glucose 330 mg/dL (80-115); Protein, Total 4.6 g/dL (6.0-8.3); Sodium 138 mmol/L (136-145)
[2018-08-15 06:05] LABS: Potassium 2.6 mmol/L (3.5-5.1)
--- NOTE | 2018-08-15 07:24 | CON ---
DATE OF CONSULTATION: 08/14/2018 CONSULTING PHYSICIAN: Afia Burk M.D. REQUESTING PHYSICIAN: ER physician. REASON FOR CONSULTATION: End-stage renal disease, on peritoneal dialysis here with query peritonitis . IMPRESSION: 1. End-stage renal disease on peritoneal dialysis. 2. Hemoperitoneum, query cause reported as bacterial peritonitis somewhat not typical. PLAN: 1. The patient to receive empiric antibiotics; however, this will be after samples have been sent fo r culture, Gram stain, and if there is no clear-cut evidence of infection, we are going to discontinu e this antibiotics regimen. 2. Consultation with the access surgeon who placed the dialysis catheter to evaluate this patient. 3. Further management to be dependent on the clinical course. HISTORY OF PRESENT ILLNESS: History is that of a 63-year-old female patient with end-stage renal dis ease on peritoneal dialysis who presented to the emergency room with abdominal pain associated with b loody dialysate. Patient denies any trauma to the dialysis catheter. Denies any strenuous or bendin g movements prior to bleeding noted, no fibrin clots noted. As a result of these, patient has been t aken to involve Renal in the management of this case. Patient already received the initial antibioti cs. Further management will be dependent on the clinical course. PAST MEDICAL HISTORY: Significant for end-stage renal disease, peritoneal dialysis dependent, type 2 diabetes, depression, hypertension, chronic hepatitis C, dyslipidemia. ALLERGIES: No known drug allergies. MEDICATIONS: Reviewed and as documented on [facility]. FAMILY HISTORY: Significant for hypertension and diabetes. REVIEW OF SYSTEMS: As documented in the body of the history. All other systems reviewed were found not to be significantly related to the presenting illness. PHYSICAL EXAMINATION: GENERAL: The patient was found not to be in any obvious respiratory distress. VITAL SIGNS: Afebrile with temperature 97.5, pulse 91, respiratory rate of 18, O2 sat 93% with blood pressure 157/90. HEENT: Unremarkable. CARDIOVASCULAR SYSTEM: First and second heart sounds were heard. RESPIRATORY SYSTEM: Clear to auscultation. DIGESTIVE SYSTEM: Revealed diffuse tenderness on palpation with positive bowel sounds. EXTREMITIES: No significant peripheral edema. SKIN: No new gross rash. LYMPHATICS: No peripheral lymphadenopathy. SUMMARY: A 63-year-old female patient with end-stage renal disease, on peritoneal dialysis treatment who developed a spontaneous bleeding intra-abdominally. Thank you for this consultation. We will follow with you.
[2018-08-15] MEDS ORDERED: Potassium Chloride 20 MEQ TAB PO SCH ×3 (07:30→19:15)
[2018-08-15] MEDS: Calcium Acetate 667 MG CAP PO SCH ×3 (08:15→17:41)
[2018-08-15] MEDS: Famotidine 20 MG TAB PO SCH (08:15)
[2018-08-15] MEDS: Calcium Carbonate 500 MG ChewTAB PO SCH ×3 (08:15→17:41)
[2018-08-15] MEDS: Amlodipine 10 MG TAB PO SCH (08:15)
[2018-08-15] MEDS: Losartan 25 MG TAB PO SCH (08:16)
[2018-08-15] MEDS: Sodium Bicarbonate Tab 325 MG TAB PO SCH (08:16)
--- NOTE | 2018-08-15 08:29 | PDOC.GSPN ---
Surgery Progress Note: Subj - Subjective Narrative: Blood-tinge to the dialysate this morning but very minimal. Her pain has almost resolved. She is feeling good. Blood pressure and heart rate have been at baseline. Hematocrit is down slightly from admission but is no lower than she has been within the past few months. Her hematocrit does seem to vary over about 5 points looking at labs over the past year. Her abdomen is soft and nondistended and very minimally tender in the lower abdomen. The PD site is clean. Cultures are negative. Assessment/plan: Intra-abdominal bleeding of unclear source. This appears to have resolved. I do not recommend any further investigation or intervention. She is cleared to discharge home from a general surgery standpoint. I will sign off. Dr. Gayle is available if she requires any further evaluation over the next few days. Surgery Progress Note: Obj - Vital signs Vital signs: Vital Signs - Most Recent Temp Pulse Resp BP Pulse Ox 98 F 86 20 134/74 96 08/15/18 07:00 08/15/18 08:15 08/15/18 07:00 08/15/18 07:00 08/15/18 07:00 Surgery Progress Note: Results - Labs Result Diagrams: 08/15/18 04:53 08/15/18 04:53 Lab results: Laboratory Results - last 24 hr 08/14/18 08/15/18 08/15/18 19:25 04:01 04:53 WBC RBC Hgb Hct MCV MCH MCHC RDW Plt Count MPV Neutrophils % Lymphocytes % Monocytes % Eosinophils % Basophils % Neutrophils # Lymphocytes # Monocytes # Eosinophils # Basophils # Sodium 138 Potassium 2.6 L* Chloride 102 Carbon Dioxide 27 Anion Gap 12 BUN 38 H Creatinine 5.84 H Estimated GFR (MDRD) 7 Glucose 330 H POC Glucose 213 H 303 H Calcium 7.5 L Total Bilirubin 0.3 AST 44 H ALT 42 Alkaline Phosphatase 197 H Serum Total Protein 4.6 L Albumin 2.0 L Globulin 2.6 Albumin/Globulin Ratio 0.8 L 08/15/18 04:53 WBC 5.0 RBC 3.60 L Hgb 10.0 L Hct 30.6 L MCV 85.2 MCH 27.8 MCHC 32.6 RDW 13.1 Plt Count 126 L MPV 8.4 Neutrophils % 63.9 Lymphocytes % 27.3 Monocytes % 5.5 Eosinophils % 2.8 Basophils % 0.5 Neutrophils # 3.2 Lymphocytes # 1.4 Monocytes # 0.3 Eosinophils # 0.1 Basophils # 0.0 Sodium Potassium Chloride Carbon Dioxide Anion Gap BUN Creatinine Estimated GFR (MDRD) Glucose POC Glucose Calcium Total Bilirubin AST ALT Alkaline Phosphatase Serum Total Protein Albumin Globulin Albumin/Globulin Ratio Surgery Progress Note: A/P - Problem (1) Abdominal pain Current Visit: No Code(s): R10.9 - UNSPECIFIED ABDOMINAL PAIN Status: Acute
[2018-08-15] MEDS ORDERED: Non-Formulary Item 1 EACH (Losartan Potassium [Cozaar] 100 MG) PO SCH (09:00)
[2018-08-15] MEDS ORDERED: Non-Formulary Item 1 EACH (Esomeprazole Magnesium [Nexium 24hr] 40 MG) PO SCH (09:00)
[2018-08-15] MEDS ORDERED: Non-Formulary Item 1 EACH (Insulin Detemir 100 Units/Ml [Levemir] 10 UNIT) SQ SCH (09:00)
[2018-08-15] MEDS: Insulin Glargine 10 UNITS in Pre-Filled Syringe 1 EACH SC SCH (13:51)
--- NOTE | 2018-08-15 19:41 | PRG ---
DATE OF SERVICE: 08/15/2018 SUBJECTIVE: Patient is seen and examined claimed to be feeling better, noted with the following leigh ann l signs. PHYSICAL EXAMINATION: VITAL SIGNS: Afebrile with temperature 98, pulse 86, respiratory rate 20, O2 sat 96% with a blood pr essure 133/75. HEENT: Unremarkable with moist oral mucosa. Neck is supple. No conjunctival injection or icterus. CARDIOVASCULAR: First and second heart sounds were heard. RESPIRATORY: Clear to auscultation. DIGESTIVE: Revealed some vague areas of tenderness on palpation with positive bowel sounds. EXTREMITIES: No significant peripheral edema. NEUROLOGIC: Alert, oriented. No lateralizing signs. LYMPHATICS: No peripheral lymphadenopathy. LABORATORY INVESTIGATIONS: Significant for potassium of 2.6. IMPRESSION AND PLAN: 1. Hemoperitoneum, query cause. I doubt peritonitis. I do believe that this is likely irritation o f capillary by the peritoneal dialysis catheter. 2. Empiric treatment for bacterial peritonitis. 3. If by tomorrow, there is no evidence of growth, we will discontinue antibiotics before now and to continue empiric antibiotics. 4. Discontinue sodium bicarbonate as this will exacerbate the hypokalemia. Patient is now on dialys is, does not need this supplementation. 5. Further management will be dependent on the clinical course.
--- NOTE | 2018-08-15 20:52 | PDOC.PN ---
- Subjective Encounter Start Date: 08/15/18 Encounter Start Time: 11:00 Patient seen and examined for suspected peritonitis. Blood tinged dialysate fluid this AM. No new complaints. No overnight events - Objective Resuscitation Status: Resuscitation Status FULL:Full Resuscitation MAR Reviewed: Yes Vital Signs & Weight: Vital Signs (12 hours) Temp Pulse Resp BP Pulse Ox 08/15/18 11:00 98 F 86 20 133/75 96 Weight Weight 142 lb 6.698 oz I&O: 08/14/18 08/15/18 08/16/18 06:59 06:59 06:59 Intake Total 300 180 200 Balance 300 180 200 Result Diagrams: 08/15/18 04:53 08/15/18 04:53 Additional Labs: Accuchecks 08/15/18 08/15/18 08/15/18 15:40 11:11 04:01 POC Glucose 177 H 123 H 303 H 08/14/18 19:25 POC Glucose 213 H Phys Exam - Physical Examination Constitutional: NAD Respiratory: no wheezing, no rhonchi Cardiovascular: RRR, no rub Gastrointestinal: soft, positive bowel sounds minimal tend, no guarding/rigidity Musculoskeletal: no edema Neurological: moves all 4 limbs Dx/Plan - Plan DVT proph w/SCDs IMPRESSION: 1. Abdominal discomfort with suspected peritoneal dialysis catheter-associated peritonitis. 2. Diabetes mellitus, type 2. on sliding scale. 3. Chronic hepatitis C. 4. End-stage renal disease, on peritoneal dialysis/Hypokalemia 5. Hypothyroidism. on levothyroxine. 6. Hypertension. 7. Chronic anemia, secondary to renal insufficiency. 8. Chronic right-sided pleural effusion, status post thoracentesis earlier this year. 9. Abnormal liver function tests secondary to chronic hepatitis C. 10. Hypoalbuminemia/mild protein-calorie malnutrition. 11. Mild persistent asthma. 12. Depression. PLAN: Cont Atbx with dialysis AM labs Replace electrolytes Cont other meds as below Review of Systems - Review of Systems Respiratory: negative: Cough, Dry, Shortness of Breath, Hemoptysis, SOB with Excertion, Pleuritic Pain, Sputum, Wheezing Cardiovascular: negative: chest pain, palpitations, orthopnea, paroxysmal nocturnal dyspnea, edema, light headedness, other - Medications/Allergies Allergies/Adverse Reactions: Allergies Allergy/AdvReac Type Severity Reaction Status Date / Time No Known Allergies Allergy Verified 05/29/18 01:37 Medications: Current Medications Acetaminophen (Tylenol) 650 mg PO Q4H PRN PRN Reason: Headache/Fever/Mild Pain (1-3) Albuterol Sulfate (Proventil Hfa) 2 puff INH Q4H PRN PRN Reason: Dyspnea Amlodipine Besylate (Norvasc) 10 mg PO QAM [facility] Last Admin: 08/15/18 08:15 Dose: 10 mg Atorvastatin Calcium (Lipitor) 10 mg PO HS [facility] Last Admin: 08/14/18 20:43 Dose: 10 mg Bisacodyl (Dulcolax) 10 mg [place] DAILYPRN PRN PRN Reason: Constipation Calcium Acetate (Phoslo) 667 mg PO TID-[facility] Last Admin: 08/15/18 17:41 Dose: 667 mg Calcium Carbonate (Tums) 1,000 mg PO Q4H PRN PRN Reason: Heartburn or Indigestion Calcium Carbonate (Tums) 1,000 mg PO TID-WM [facility] Last Admin: 08/15/18 17:41 Dose: 1,000 mg Dextrose/Water (Dextrose 50%) 25 gm IVP PRN PRN PRN Reason: HYPOGLYCEMIA PROTOCOL Famotidine (Pepcid) 20 mg PO DAILY [facility] Last Admin: 08/15/18 08:15 Dose: 20 mg Gentamicin Sulfate (Gentamicin Sulfate) 60 mg FS .INTRAPERITONEAL [facility] Last Admin: 08/15/18 18:26 Dose: 60 mg Glucagon (Glucagon) 1 mg IM PRN PRN PRN Reason: HYPOGLYCEMIA PROTOCOL Hydralazine HCl (Apresoline) 10 mg SLOW IVP Q4H PRN PRN Reason: SBP Greater Than 180 Dextrose/Water (D5w) 1,000 mls @ 0 mls/hr IV INF PRN PRN Reason: HYPOGLYCEMIA PROTOCOL Dextrose/Water (D5w) 1,000 mls @ 0 mls/hr IV .Q0M PRN PRN Reason: Hypoglycemia Insulin Glargine 10 units/ (Miscellaneous Medication) 0.1 mls @ 0 mls/hr SC DAILY [facility] Last Admin: 08/15/18 13:51 Dose: Not Given Insulin Human Lispro (Humalog) 0 units SC .MODERATE SLIDING SC PRN; Protocol PRN Reason: MODERATE SLIDING SCALE Last Admin: 08/15/18 04:56 Dose: 6 unit Insulin Human Lispro (Humalog) 0 units SC .BEDTIME SLIDING SC PRN PRN Reason: Bedtime Correctional Scale Levothyroxine Sodium (Synthroid) 88 mcg PO 0600 [facility] Last Admin: 08/15/18 04:54 Dose: 88 mcg Losartan Potassium (Cozaar) 100 mg PO DAILY [facility] Last Admin: 08/15/18 08:16 Dose: 100 mg Ondansetron HCl (Zofran Odt) 4 mg PO Q6H PRN PRN Reason: Nausea/Vomiting Ondansetron HCl (Zofran) 4 mg IVP Q6H PRN PRN Reason: Nausea/Vomiting Pantoprazole Sodium (Protonix) 40 mg PO DAILY [facility] Last Admin: 08/15/18 08:15 Dose: 40 mg Potassium Chloride (K-Dur) 40 meq PO NOW [facility] Stop: 08/15/18 21:30 Senna/Docusate Sodium (Senokot S) 2 tab PO BID PRN PRN Reason: Constipation Sodium Chloride (Flush - Normal Saline) 10 ml IVF Q12HR [facility] Last Admin: 08/15/18 08:17 Dose: 10 ml Sodium Chloride (Flush - Normal Saline) 10 ml IVF PRN PRN PRN Reason: Saline Flush
[2018-08-15] MEDS: Atorvastatin Calcium 10 MG TAB PO SCH (21:34)
[2018-08-16 05:28] LABS: Albumin 1.9 g/dL (3.4-4.8); Anion Gap 14 mmol/L (10-20); BUN (Urea Nitrogen) 35 mg/dL (9.8-20.1); BUN/Creatinine Ratio 6.03; Calc. Creatinine Clearance 10 mL/min (70-130); Calcium 7.7 mg/dL (7.8-10.44); Carbon Dioxide 24 mmol/L (23-31); Chloride 106 mmol/L (98-107); Estimated GFR-MDRD 7; Glucose 209 mg/dL (80-115); Magnesium 1.5 mg/dL (1.6-2.6); Potassium 4.6 mmol/L (3.5-5.1); Sodium 139 mmol/L (136-145)
[2018-08-16] MEDS: Levothyroxine Sodium 88 MCG TAB PO SCH (05:41)
[2018-08-16] MEDS: HumaLOG 300 UNITS/3 ML VIAL SC PRN (05:44)
[2018-08-16 07:17] LABS: #Eosinphils 0.1 thou/uL (0.0-0.7); #Lymphocytes 1.8 thou/uL (1.20-3.40); #Monocytes 0.4 thou/uL (0.11-0.59); #Neutrophils 3.2 thou/uL (1.40-6.50); %Basophils 0.5 % (0.0-1.0); %Eosinophils 2.6 % (0.0-10.0); %Lymphocytes 32.8 % (21.0-51.0); %Monocytes 6.9 % (0.0-10.0); %Neutrophils 57.2 % (42.0-75.0); Mean Corpuscular HGB CONC 32.2 g/dL (32.0-36.0); Mean Corpuscular Hemoglobin 27.6 pg (27.0-31.0); Mean Corpuscular Volume 85.9 fL (78.0-98.0); Mean Platelet Volume 8.8 fL (7.4-10.4); Platelet Count 127 thou/uL (130-400); RBC Distribution Width 13.2 % (11.5-14.5); Red Blood Cell (RBC) Count 3.64 mill/uL (4.20-5.40); White Blood Cell (WBC) Count 5.6 thou/uL (4.8-10.8)
[2018-08-16 07:32] VITALS: BP 138/79; TEMP 97.8
[2018-08-16] MEDS ORDERED: Magnesium Chloride 64 MG TAB PO SCH (09:00)
[2018-08-16] MEDS: Famotidine 20 MG TAB PO SCH (09:11)
[2018-08-16] MEDS: Calcium Acetate 667 MG CAP PO SCH (09:11)
[2018-08-16] MEDS: Calcium Carbonate 500 MG ChewTAB PO SCH (09:11)
[2018-08-16] MEDS: Losartan 25 MG TAB PO SCH (09:11)
[2018-08-16] MEDS: Amlodipine 10 MG TAB PO SCH (09:12)
--- NOTE | 2018-08-16 10:20 | DIS ---
DATE OF ADMISSION: 08/13/2018 DATE OF DISCHARGE: 08/16/2018 DISCHARGE DISPOSITION: Home. FOLLOWUP: 1. Follow up with primary care physician, Dr. Christa Schumacher in 1 week. 2. Follow up with Dr. Griffiths in 2 weeks. 3. Follow up with Dr. Oreilly as scheduled. The patient was advised to follow up on the final peritoneal fluid culture with the PCP next week. ALLERGIES: No known drug allergies. DISCHARGE MEDICATIONS: 1. Slow-Mag 64 mg daily for 2 weeks. 2. All other home medications were resumed. Dr. Oreilly discontinued sodium bicarbonate. No nee d for antibiotics per Dr. Oreilly. BRIEF HOSPITAL COURSE: Patient is a 63-year-old female with end-stage renal disease on peritoneal di alysis, presented to the hospital with abdominal discomfort. Please refer to the history and physica l for further details. The patient was admitted to the hospital with a diagnosis of suspected peritoneal dialysis catheter a ssociated peritonitis. Peritoneal fluid was also blood tinged. She was seen by Nephrology as well a s General Surgery. She continues to have minimal amount of blood in the dialysis fluid. Her abdomin al pain has improved. She was placed on vancomycin and gentamicin intraperitoneally that has been di scontinued by Nephrology. The cultures so far have been negative. She has been cleared by consultan ts for discharge. FINAL DIAGNOSES: 1. Abdominal discomfort secondary to trauma from peritoneal dialysis catheter, improving. Peritonit is has been ruled out. 2. Diabetes mellitus type 2. 3. Chronic hepatitis C. 4. End-stage renal disease on peritoneal dialysis. 5. Hypothyroidism. 6. Hypertension. 7. Chronic anemia. 8. Chronic right-sided pleural effusion, status post thoracentesis earlier this year. 9. Abnormal liver function tests, probably secondary to chronic hepatitis C. 10. Mild protein calorie malnutrition/hypoalbuminemia. 11. Mild persistent asthma. 12. Depression. 13. Acute blood loss anemia secondary to #1. Hemoglobin on the day of discharge is 10 from 12.2 on admission. 14. Hypokalemia, replaced. 15. Hypomagnesemia. Plan of care was discussed with the patient and the family in detail. They stated understanding.
[2018-08-16] MEDS: Insulin Glargine 10 UNITS in Pre-Filled Syringe 1 EACH SC SCH (11:28)
== END 2018-08-16 11:37 | disposition home or self-care (01) | DRG 393 ==
LOC: SCSER 16:48 → T4-B 20:38
PROVIDERS: ADMIT Internal Medicine; ATTEND Internal Medicine
PROC: 3E1M39Z Irrigation of Peritoneal Cavity using Dialysate, Percutaneous Approach (ICD-10-PCS; principal; 2018-08-15)
DX: S36.81XA Injury of peritoneum, initial encounter (principal); N18.6 End stage renal disease; J90 Pleural effusion, not elsewhere classified; E44.1 Mild protein-calorie malnutrition; I12.0 Hypertensive chronic kidney disease with stage 5 chronic kidney disease or end stage renal disease; D62 Acute posthemorrhagic anemia; Z99.2 Dependence on renal dialysis; E11.22 Type 2 diabetes mellitus with diabetic chronic kidney disease; Z79.84 Long term (current) use of oral hypoglycemic drugs; F32.9 Major depressive disorder, single episode, unspecified; B18.2 Chronic viral hepatitis C; E78.5 Hyperlipidemia, unspecified; E03.9 Hypothyroidism, unspecified; D63.1 Anemia in chronic kidney disease; Z68.24 Body mass index [BMI] 24.0-24.9, adult; J45.30 Mild persistent asthma, uncomplicated; E87.6 Hypokalemia; E83.42 Hypomagnesemia
CPT/HCPCS: 36415; 36416; 80053; 80069; 83690; 83735; 85025; 85060; 85610; 85730; 86850; 86900; 86901; 87070; 87205; 89051; 90945; 96374; G0257; J1580; J2270; J3370

== ENCOUNTER 2018-09-18 17:52 | Inpatient (IN) | payer MEDICARE, MEDICAID ==
[2018-09-18 18:24] LABS: #Eosinphils 0.1 thou/uL (0.0-0.7); #Lymphocytes 1.1 thou/uL (1.20-3.40); #Monocytes 0.4 thou/uL (0.11-0.59); #Neutrophils 5.7 thou/uL (1.40-6.50); %Basophils 0.3 % (0.0-1.0); %Eosinophils 1.3 % (0.0-10.0); %Lymphocytes 15.2 % (21.0-51.0); %Monocytes 4.9 % (0.0-10.0); %Neutrophils 78.3 % (42.0-75.0); Hemoglobin 10.5 g/dL (12.0-16.0); Mean Corpuscular HGB CONC 33.8 g/dL (32.0-36.0); Mean Corpuscular Hemoglobin 28.1 pg (27.0-31.0); Mean Corpuscular Volume 83.1 fL (78.0-98.0); Platelet Count 161 thou/uL (130-400); RBC Distribution Width 13.4 % (11.5-14.5); Red Blood Cell (RBC) Count 3.75 mill/uL (4.20-5.40); White Blood Cell (WBC) Count 7.2 thou/uL (4.8-10.8)
[2018-09-18 18:48] LABS: ALT (SGPT) 15 U/L (8-55); AST (SGOT) 15 U/L (5-34); Albumin 2.5 g/dL (3.4-4.8); Alkaline Phosphatase 175 U/L (40-150); Anion Gap 12 mmol/L (10-20); BUN (Urea Nitrogen) 41 mg/dL (9.8-20.1); Bilirubin, Total 0.3 mg/dL (0.2-1.2); CK (CPK) 53 U/L (29-168); Calc. Creatinine Clearance 0 mL/min (70-130); Calcium 8.1 mg/dL (7.8-10.44); Carbon Dioxide 26 mmol/L (23-31); Chloride 103 mmol/L (98-107); Estimated GFR-MDRD 6; Globulin 3.3 g/dL (2.4-3.5); Glucose 307 mg/dL (80-115); Protein, Total 5.8 g/dL (6.0-8.3); Sodium 139 mmol/L (136-145)
[2018-09-18 18:53] LABS: Potassium 2.4 mmol/L (3.5-5.1)
[2018-09-18 18:57] LABS: CKMB 1.2 ng/mL (0-6.6); Troponin I 0.026 ng/mL (< 0.028)
[2018-09-18] MEDS ORDERED: Potassium ACETATE 40 MEQ/20 ML VIAL IV ONE (19:47)
[2018-09-18] MEDS ORDERED: Potassium Chloride 20 MEQ TAB ONE (20:19)
--- NOTE | 2018-09-18 21:28 | RAD ---
PORTABLE UPRIGHT FRONTAL CHEST RADIOGRAPH 09/18/18 COMPARISON: 05/28/18. HISTORY: Cough, congestion and weakness. FINDINGS: Hazy nonspecific increased density is seen in the right lung base suggesting pulmonary parenchymal op acity and small volume pleural fluid. The aeration within the right lung base is improved when comp ared to the 05/28/18 examination which demonstrated dense consolidation of the right base with a right pleural effusion. There is no pneumothorax There is no pneumothorax. The left lung is clear. IMPRESSION: Mild hazy increased pleural and parenchymal opacity in the right lung base. Opacification is improved when compared to 05/28/18. Findings on the current exam may signify pleural fluid and/or infectious pn eumonitis/aspiration. Asymmetric pulmonary edema is a possibility. Followup imaging following treatme nt advised. POS: LYSSA
[2018-09-18 22:03] LABS: Troponin I 0.025 ng/mL (< 0.028)
[2018-09-18 23:54] VITALS: BMI 21.4
[2018-09-19] MEDS ORDERED: Potassium Chloride 20 MEQ TAB PO SCH ×2 (00:30→12:15)
[2018-09-19] MEDS ORDERED: Dextrose 50% Abboject 50 ML SYRINGE IVP PRN (03:20)
[2018-09-19] MEDS ORDERED: Dextrose 5% in Water 1,000 ML IV PRN (03:20)
[2018-09-19] MEDS ORDERED: Ondansetron ODT 4 MG TAB PO PRN (07:34)
[2018-09-19] MEDS ORDERED: Zolpidem Tartrate 5 MG TAB PO PRN (07:34)
[2018-09-19] MEDS ORDERED: Bisacodyl 5 MG TAB PO PRN (07:34)
[2018-09-19] MEDS ORDERED: Calcium Carbonate 500 MG ChewTAB PO PRN (07:34)
[2018-09-19] MEDS ORDERED: Acetaminophen 325 MG TAB PO PRN (07:34)
[2018-09-19] MEDS ORDERED: HYDROcodone/Acetaminophen 5/325 mg Tablet PO PRN (07:34)
[2018-09-19] MEDS ORDERED: Ondansetron PF 4 MG/2 ML Vial IVP PRN (07:34)
[2018-09-19] MEDS ORDERED: Loperamide HCl 2 MG CAP PO PRN (07:34)
[2018-09-19] MEDS ORDERED: Senokot S 8.6-50 MG TAB PO PRN (07:34)
[2018-09-19] MEDS ORDERED: Bisacodyl 10 MG SUPP PR PRN (07:34)
[2018-09-19] MEDS ORDERED: PROVENTIL INHALER 6.7 G (200 INHALATIONS) INH PRN (07:36)
[2018-09-19] MEDS ORDERED: Famotidine 20 MG TAB PO SCH (09:00)
[2018-09-19] MEDS ORDERED: Ergocalciferol 1.25 MG(50,000 UNITS) CAP PO SCH (09:00)
[2018-09-19] MEDS ORDERED: INSULIN DETEMIR SQ SCH (09:00)
[2018-09-19] MEDS: HumaLOG 300 UNITS/3 ML VIAL SC PRN ×2 (09:33→12:34)
[2018-09-19 09:57] LABS: Anion Gap 11 mmol/L (10-20); BUN (Urea Nitrogen) 36 mg/dL (9.8-20.1); Calc. Creatinine Clearance 7 mL/min (70-130); Calcium 7.6 mg/dL (7.8-10.44); Carbon Dioxide 27 mmol/L (23-31); Chloride 104 mmol/L (98-107); Estimated GFR-MDRD 6; Glucose 341 mg/dL (80-115); Sodium 139 mmol/L (136-145)
[2018-09-19 10:03] LABS: Potassium 2.9 mmol/L (3.5-5.1)
[2018-09-19] MEDS ORDERED: Ferrous Sulfate 325 MG TAB PO SCH (12:00)
[2018-09-19] MEDS ORDERED: Sodium Chloride 0.9% 10 ML ONE (12:11)
[2018-09-19] MEDS: Losartan 25 MG TAB PO SCH (12:21)
[2018-09-19] MEDS: guaiFENesin ER 600 MG TAB PO SCH ×2 (12:21→20:42)
[2018-09-19] MEDS: Sodium Bicarbonate Tab 325 MG TAB PO SCH ×2 (12:21→20:42)
[2018-09-19] MEDS: Calcium Acetate 667 MG CAP PO SCH ×3 (12:22→16:53)
[2018-09-19] MEDS: Multivitamin W/ Minerals 1 TAB PO SCH (12:22)
[2018-09-19] MEDS: Amlodipine 10 MG TAB PO SCH (12:26)
[2018-09-19] MEDS: Heparin 5,000 UNITS/ML VIAL SC SCH ×2 (12:26→20:43)
[2018-09-19] MEDS: Sodium Chloride 0.9% 10 ML ONE ×2 (12:27→16:13)
[2018-09-19] MEDS: cefTRIAXone\\ROCEPHIN 1 GM in Sodium Chloride 0.9% 100 ML IVPB SCH (12:27)
[2018-09-19] MEDS: Insulin Glargine 14 UNITS in Pre-Filled Syringe 1 EACH SC SCH (12:42)
[2018-09-19] MEDS: Potassium Chloride 20 MEQ TAB PO SCH ×3 (13:28→20:43)
[2018-09-19 13:31] LABS: Magnesium 1.4 mg/dL (1.6-2.6); Phosphorus 3.1 mg/dL (2.3-4.7)
[2018-09-19] MEDS ORDERED: Magnesium 2 GM/50 ML 2 GM in Premix Bag 1 BAG IVPB SCH (14:30)
--- NOTE | 2018-09-19 14:55 | HP ---
PRIMARY CARE PHYSICIAN: Christa Schumacher MD REASON FOR ADMISSION: Community-acquired pneumonia/bronchitis, generalized weakness, hypokalemia. HISTORY OF PRESENT ILLNESS: A 63-year-old female who has underlying history of ESRD, on peritoneal dialysis, who presented to emergency room with a complaint of generalized weakness, cough, congestion, chills, and episode of vomiting. The patient was not feeling good since last week . The patient seen by primary care physician and suspected bronchitis. The patient was given some antibiotic therapy with Tessalon and Z-Francisco, but the patient was not feeling better. She was feeling more and more weak, and that is why she decided to come to emergency room for evaluation. The patient was also having very poor appetite. She was requiring lot of assistance to get around at home. She was feeling extremely weak. In the emergency room, chest x-ray showed right lower lobe infiltration. The patient received IV antibiotic therapy in the emergency room and subsequently, she was admitted to telemetry floor. She was also found with hypokalemia. When I saw this patient in the morning, she was coughing. She was so weak that she was not able to sit by herself in her bed. She was afebrile. She was hemodynamically stable. REVIEW OF SYSTEMS: The following complete review of systems was negative, unless otherwise mentioned in the HPI or below: Constitutional: Weight loss or gain, ability to conduct usual activities. Skin: Rash, itching. Eyes: Double vision, pain. ENT/Mouth: Nose bleeding, neck stiffness, pain, tenderness. Cardiovascular: Palpitations, dyspnea on exertion, orthopnea. Respiratory: Shortness of breath, wheezing, cough, hemoptysis, fever or night sweats. Gastrointestinal: Poor appetite, abdominal pain, heartburn, nausea, vomiting, constipation, or diarrhea. Genitourinary: Urgency, frequency, dysuria, nocturia. Musculoskeletal: Pain, swelling. Neurologic/Psychiatric: Anxiety, depression. Allergy/Immunologic: Skin rash, bleeding tendency. . Please see my HPI for pertinent positive and negative. All other review of systems reviewed and negative except as mentioned in the HPI. PAST MEDICAL HISTORY: ESRD, on peritoneal dialysis, dyslipidemia, mild intermittent asthma, chronic hepatitis C, hypertension, diabetes type 2, anemia of renal disease, gastroesophageal reflux disease. PAST SURGICAL HISTORY: Peritoneal dialysis catheter placement, hernia repair x2, hysterectomy, cholecystectomy. PAST PSYCHIATRIC HISTORY: Reviewed and negative. ALLERGIES: NO KNOWN DRUG ALLERGY. CURRENT HOME MEDICATIONS: 1. ProAir 2 puff q.4 hourly p.r.n. 2. Vitamin D2 of 50,000 units weekly. 3. Amlodipine 10 mg daily. 4. Aspirin 81 mg daily. 5. Lipitor 10 mg p.o. at bedtime. 6. Azithromycin 250 mg daily. 7. Tessalon 100 mg t.i.d. 8. PhosLo 667 mg t.i.d. 9. Nexium 40 mg daily. 10. Ferrous sulfate 325 mg t.i.d. 11. Glecaprevir and pibrentasvir one capsule daily. 12. NovoLog insulin as per sliding scale. 13. Levemir 14 units subcu daily. 14. Synthroid 88 mcg p.o. daily. 15. Cozaar 100 mg daily. 16. Lovastatin 10 mg daily. 17. Multivitamin 1 tablet daily. 18. Potassium chloride 40 mEq p.o. daily. 19. Sodium bicarbonate 650 mg p.o. b.i.d. FAMILY HISTORY: Positive for hypertension, diabetes, cirrhosis, and brain cancer among family member. SOCIAL HISTORY: The patient lives at home with family. No history of tobacco, alcohol, or illicit drug abuse. EMERGENCY ROOM COURSE: The patient received potassium chloride. PHYSICAL EXAMINATION: VITAL SIGNS: On arrival, blood pressure 117/72, pulse 83, respiratory rate 20, temperature 98.7, saturation 99% on room air. Weight 58.6 kg. GENERAL: The patient is currently alert, awake, appears very weak. HEAD: Normocephalic, atraumatic. EYES: Pupils are round and reactive to light. Extraocular muscle intact. ENT: Oropharynx within normal limits. Moist mucous membranes. No oral lesions. No pharyngeal erythema. NECK: Supple. No JVD. No meningeal signs of irritation. LUNGS: Coarse breath sounds. Few end expiratory wheezing heard. Right basal rales noted. CARDIAC: S1 and S2 appears regular without any murmur. No gallop. No rub. ABDOMEN: Soft. Bowel sounds present. Nontender, nondistended. No organomegaly. No mass. No suprapubic tenderness. BACK: Unremarkable. No CVA tenderness. EXTREMITIES: Upper extremity, passive movement of all joints are normal. Lower extremity, no edema. Good distal pulsation. SKIN: No skin rash. HEMATOLOGIC: No lymphadenopathy. PSYCHIATRIC: Normal affect. NEUROLOGIC: Nonfocal examination. LABORATORY DATA: Significant labs: CBC; WBC of 7.2, hemoglobin 10.5, platelet 161. BMP; sodium 139, potassium 2.4, chloride 103, carbon dioxide 26, anion gap 12, BUN 41, creatinine 7.46, glucose 307, calcium 8.1. LFT: AST 15, ALT 15, alkaline phosphatase 175, albumin 2.5. Cardiac enzyme negative x2. Chest x-ray based on my review, right lower lobe infiltration noted. EKG showing normal sinus rhythm, nonspecific ST-T changes. ASSESSMENT AND PLAN: Impression: 1. Generalized weakness. The patient will need PT/OT evaluation while in the hospital, most likely related with underlying bronchitis/pneumonia. 2. Right lower lobe community-acquired pneumonia, suspecting Streptococcal pneumoniae, but underlying gram-negative tram cannot be entirely excluded. At this time, we will start Rocephin 1 g q.24 hourly, Levaquin 750 mg every other day, DuoNeb therapy q.6 hourly p.r.n., Mucinex 600 mg twice daily. 3. Hypokalemia. Potassium chloride will be given. We will check magnesium and phosphorus level. 4. End-stage renal disease, on peritoneal dialysis. Dr. Oreilly is consulted. The patient is getting peritoneal dialysis while in the hospital daily. 5. Secondary hyperparathyroidism of renal origin, continue PhosLo 667 mg t.i.d. 6. Anemia of renal disease, continue ferrous sulfate 325 mg p.o. t.i.d. 7. Hypothyroidism, continue Synthroid 88 mcg p.o. daily. 8. Diabetes type 2, continue Levemir insulin 14 units subcu daily and Humalog insulin as per sliding scale protocol. 9. Hepatitis C. The patient is getting antiviral therapy, which we will continue while in the hospital. 10. Hypertension, continue losartan 100 mg p.o. daily. 11. Gastroesophageal reflux disease, continue Protonix 40 mg p.o. daily. 12. Dyslipidemia, continue lovastatin 10 mg p.o. daily. 13. Deep vein thrombosis prophylaxis, heparin 5000 units subcu twice daily. 14. Gastrointestinal prophylaxis, Protonix 40 mg p.o. daily. CODE STATUS: The patient is full code. The patient does not have any surrogate decision maker. DISPOSITION/PLAN: Based on clinical course. This patient does not need any telemetry floor and that is why we will transfer to medical floor. PLAN OF CARE: Discussed with the patient in detail. We will also check virus panel because influenza screen is negative and we will rule out other viral etiology. Job ID: [id number]
[2018-09-19] MEDS ORDERED: Non-Formulary Item 1 EACH (Lovastatin [Lovastatin] 10 MG) PO SCH (17:00)
[2018-09-19] MEDS: Atorvastatin Calcium 10 MG TAB PO SCH (20:42)
[2018-09-20 04:50] LABS: #Basophils 0.1 thou/uL (0.0-0.2); #Eosinphils 0.1 thou/uL (0.0-0.7); #Lymphocytes 1.2 thou/uL (1.20-3.40); #Monocytes 0.5 thou/uL (0.11-0.59); #Neutrophils 4.2 thou/uL (1.40-6.50); %Basophils 0.9 % (0.0-1.0); %Eosinophils 1.6 % (0.0-10.0); %Lymphocytes 19.5 % (21.0-51.0); %Monocytes 7.9 % (0.0-10.0); %Neutrophils 70.1 % (42.0-75.0); Hemoglobin 9.9 g/dL (12.0-16.0); Mean Corpuscular HGB CONC 34.1 g/dL (32.0-36.0); Mean Corpuscular Hemoglobin 28.4 pg (27.0-31.0); Mean Corpuscular Volume 83.5 fL (78.0-98.0); Mean Platelet Volume 8.6 fL (7.4-10.4); Platelet Count 152 thou/uL (130-400); RBC Distribution Width 13.6 % (11.5-14.5); Red Blood Cell (RBC) Count 3.47 mill/uL (4.20-5.40)
[2018-09-20 05:02] LABS: ALT (SGPT) 14 U/L (8-55); AST (SGOT) 18 U/L (5-34); Albumin 2.4 g/dL (3.4-4.8); Alkaline Phosphatase 165 U/L (40-150); Anion Gap 14 mmol/L (10-20); BUN (Urea Nitrogen) 35 mg/dL (9.8-20.1); Bilirubin, Total 0.3 mg/dL (0.2-1.2); Calc. Creatinine Clearance 8 mL/min (70-130); Calcium 8.3 mg/dL (7.8-10.44); Carbon Dioxide 26 mmol/L (23-31); Chloride 106 mmol/L (98-107); Estimated GFR-MDRD 6; Globulin 3.1 g/dL (2.4-3.5); Glucose 139 mg/dL (80-115); Magnesium 2.1 mg/dL (1.6-2.6); Protein, Total 5.5 g/dL (6.0-8.3); Sodium 142 mmol/L (136-145)
[2018-09-20] MEDS: Levothyroxine Sodium 88 MCG TAB PO SCH (05:02)
[2018-09-20] MEDS ORDERED: Glecaprevir/Pibrentasvir [Mavyret 100-40 Mg Tablet] PO SCH (08:00)
[2018-09-20] MEDS: Losartan 25 MG TAB PO SCH (09:03)
[2018-09-20] MEDS: Potassium Chloride 20 MEQ TAB PO SCH (09:04)
[2018-09-20] MEDS: Sodium Bicarbonate Tab 325 MG TAB PO SCH ×2 (09:04→20:36)
[2018-09-20] MEDS: guaiFENesin ER 600 MG TAB PO SCH ×2 (09:05→20:36)
[2018-09-20] MEDS: Multivitamin W/ Minerals 1 TAB PO SCH (09:05)
[2018-09-20] MEDS: Calcium Acetate 667 MG CAP PO SCH ×3 (09:05→17:28)
[2018-09-20] MEDS: Amlodipine 10 MG TAB PO SCH (09:06)
[2018-09-20] MEDS: Heparin 5,000 UNITS/ML VIAL SC SCH ×2 (09:12→20:36)
[2018-09-20] MEDS: Insulin Glargine 14 UNITS in Pre-Filled Syringe 1 EACH SC SCH (09:16)
--- NOTE | 2018-09-20 10:45 | PDOC.PN ---
- Subjective Encounter Start Date: 09/20/18 Encounter Start Time: 09:30 -: old records requested/rev Patient seen and examined. No new complaints. No overnight events she has cough, she is very weak - Objective Resuscitation Status - Order Detail: 09/19/18 07:34 Resuscitation Status Routine Resuscitation Status: FULL: Full Resuscitation MAR Reviewed: Yes Vital Signs & Weight: Vital Signs (12 hours) Temp Pulse Resp BP BP Pulse Ox 09/20/18 09:06 88 126/73 09/20/18 07:28 98.4 F 88 20 126/73 95 09/20/18 05:05 98.1 F 88 16 149/83 H 96 09/20/18 00:00 97.5 F L 81 16 122/70 100 Weight Weight 125 lb I&O: 09/19/18 09/20/18 09/21/18 06:59 06:59 06:59 Intake Total 900 Output Total 1312 Balance -412 Result Diagrams: 09/20/18 03:59 09/20/18 03:59 Additional Labs: Accuchecks 09/20/18 09/19/18 09/19/18 05:04 20:21 16:20 POC Glucose 126 H 96 186 H 09/19/18 09/19/18 15:50 11:21 POC Glucose 46 L* 257 H Phys Exam - Physical Examination Constitutional: NAD HEENT: PERRLA, moist MMs, sclera anicteric Neck: no JVD, supple Respiratory: no wheezing, no rales, no rhonchi Cardiovascular: RRR, no significant murmur, no rub Gastrointestinal: soft, non-tender, no distention, positive bowel sounds PD catheter + Musculoskeletal: no edema, pulses present Neurological: non-focal, normal sensation Lymphatic: no nodes Psychiatric: normal affect, A&O x 3 Skin: no rash, normal turgor Dx/Plan (1) Community acquired bacterial pneumonia Code(s): J15.9 - UNSPECIFIED BACTERIAL PNEUMONIA Status: Acute (2) Hypokalemia Code(s): E87.6 - HYPOKALEMIA Status: Acute (3) Hypomagnesemia Code(s): E83.42 - HYPOMAGNESEMIA Status: Acute (4) Infection due to human metapneumovirus (hMPV) Code(s): B97.81 - HUMAN METAPNEUMOVIRUS THE CAUSE OF DISEASES CLASSD ELSWHR Status: Acute (5) Weakness generalized Code(s): R53.1 - WEAKNESS Status: Acute (6) Anemia of renal disease Code(s): N18.9 - CHRONIC KIDNEY DISEASE, UNSPECIFIED; D63.1 - ANEMIA IN CHRONIC KIDNEY DISEASE Status: Chronic (7) DM2 (diabetes mellitus, type 2) Status: Chronic Comment: accuchecks, insulin sliding scale. (8) ESRD on peritoneal dialysis Code(s): N18.6 - END STAGE RENAL DISEASE; Z99.2 - DEPENDENCE ON RENAL DIALYSIS Status: Chronic (9) GERD (gastroesophageal reflux disease) Code(s): K21.9 - GASTRO-ESOPHAGEAL REFLUX DISEASE WITHOUT ESOPHAGITIS Status: Chronic (10) Hepatitis C Code(s): B19.20 - UNSPECIFIED VIRAL HEPATITIS C WITHOUT HEPATIC COMA Status: Chronic (11) Hypertension Code(s): I10 - ESSENTIAL (PRIMARY) HYPERTENSION Status: Chronic Comment: titrate antihypertensives as needed. (12) Hypothyroidism Code(s): E03.9 - HYPOTHYROIDISM, UNSPECIFIED Status: Chronic (13) Secondary hyperparathyroidism of renal origin Code(s): N25.81 - SECONDARY HYPERPARATHYROIDISM OF RENAL ORIGIN Status: Chronic - Plan cont current plan of care, continue antibiotics, PT/OT, respiratory therapy * continue one more day IV antibiotics * medication reviewed as below * symptomatic treatment * follow culture. * continue PD as per nephrology Review of Systems - Review of Systems Constitutional: weakness. negative: fever, chills, sweats, malaise, other ENT: negative: Ear Pain, Ear Discharge, Nose Pain, Nose Discharge, Nose Congestion, Mouth Pain, Mouth Swelling, Throat Pain, Throat Swelling, Other Respiratory: Cough, Shortness of Breath. negative: Dry, Hemoptysis, SOB with Excertion, Pleuritic Pain, Sputum, Wheezing Cardiovascular: negative: chest pain, palpitations, orthopnea, paroxysmal nocturnal dyspnea, edema, light headedness, other Gastrointestinal: negative: Nausea, Vomiting, Abdominal Pain, Diarrhea, Constipation, Melena, Hematochezia, Other Genitourinary: negative: Dysuria, Frequency, Incontinence, Hematuria, Retention , Other Musculoskeletal: negative: Neck Pain, Shoulder Pain, Arm Pain, Back Pain, Hand Pain, Leg Pain, Foot Pain, Other - Medications/Allergies Allergies/Adverse Reactions: Allergies Allergy/AdvReac Type Severity Reaction Status Date / Time Iodine and Iodide Containing Allergy Verified 09/18/18 22:47 Produc Medications: Current Medications Acetaminophen (Tylenol) 650 mg PO Q4H PRN PRN Reason: Headache/Fever/Mild Pain (1-3) Last Admin: 09/19/18 12:22 Dose: 650 mg Hydrocodone Bitart/Acetaminophen (Paulding 5/325) 1 tab PO Q4H PRN PRN Reason: Moderate Pain (4-6) Albuterol Sulfate (Proventil Hfa) 2 puff INH Q4H PRN PRN Reason: Dyspnea Albuterol/Ipratropium (Duoneb) 3 ml NEB [id number] PRN PRN Reason: SOB &/or Wheezing Amlodipine Besylate (Norvasc) 10 mg PO QAM [facility] Last Admin: 09/20/18 09:06 Dose: 10 mg Aspirin (Aspirin Chewable) 81 mg PO DAILY [facility] Last Admin: 09/20/18 09:06 Dose: 81 mg Atorvastatin Calcium (Lipitor) 10 mg PO HS [facility] Last Admin: 09/19/18 20:42 Dose: 10 mg Bisacodyl (Dulcolax) 10 mg MT DAILYPRN PRN PRN Reason: Constipation Bisacodyl (Dulcolax) 10 mg PO DAILYPRN PRN PRN Reason: Constipation Calcium Acetate (Phoslo) 667 mg PO TID-WM [facility] Last Admin: 09/20/18 09:05 Dose: 667 mg Calcium Carbonate (Tums) 1,000 mg PO Q4H PRN PRN Reason: Heartburn or Indigestion Dextrose/Water (Dextrose 50%) 25 gm IVP PRN PRN PRN Reason: HYPOGLYCEMIA PROTOCOL Last Admin: 09/19/18 15:54 Dose: 25 gm Ergocalciferol (Drisdol) 1.25 mg PO Q7DAYS [facility] Last Admin: 09/19/18 12:38 Dose: 1.25 mg Glucagon (Glucagon) 1 mg IM PRN PRN PRN Reason: HYPOGLYCEMIA PROTOCOL Guaifenesin (Mucinex) 600 mg PO Q12HR [facility] Last Admin: 09/20/18 09:05 Dose: 600 mg Heparin Sodium (Porcine) (Heparin) 5,000 units SC BID [facility] Last Admin: 09/20/18 09:12 Dose: 5,000 units Dextrose/Water (D5w) 1,000 mls @ 0 mls/hr IV INF PRN PRN Reason: HYPOGLYCEMIA PROTOCOL Ceftriaxone Sodium 1 gm/ (Sodium Chloride) 100 mls @ 200 mls/hr IVPB 1200 [facility] Last Admin: 09/19/18 12:27 Dose: 100 mls Insulin Glargine 14 units/ (Miscellaneous Medication) 0.14 mls @ 0 mls/hr SC DAILY [facility] Last Admin: 09/20/18 09:16 Dose: Not Given Levofloxacin 500 mg/ Device 100 mls @ 100 mls/hr IVPB Q2DAYS@1300 [facility] Insulin Human Lispro (Humalog) 0 units SC .MILD SLIDING SCALE PRN; Protocol PRN Reason: MILD SLIDING SCALE Last Admin: 09/19/18 12:34 Dose: 4 unit Iron/Minerals/Multivitamins (Theragran M) 1 tab PO [facility] Last Admin: 09/20/18 09:05 Dose: 1 tab Levothyroxine Sodium (Synthroid) 88 mcg PO 0600 [facility] Last Admin: 09/20/18 05:02 Dose: 88 mcg Loperamide HCl (Imodium) 2 mg PO PRN PRN PRN Reason: Diarrhea/Loose Stools Losartan Potassium (Cozaar) 100 mg PO [facility] Last Admin: 09/20/18 09:03 Dose: 100 mg Ondansetron HCl (Zofran Odt) 4 mg PO Q6H PRN PRN Reason: Nausea/Vomiting Ondansetron HCl (Zofran) 4 mg IVP Q6H PRN PRN Reason: Nausea/Vomiting Pantoprazole Sodium (Protonix) 40 mg PO [facility] Last Admin: 09/20/18 09:05 Dose: 40 mg Glecaprevir/Pibrentasvir [ Mavyret 100-40 Mg Tablet] 0 each PO [facility] Potassium Chloride (K-Dur) 40 meq PO [facility] Last Admin: 09/20/18 09:04 Dose: 40 meq Senna/Docusate Sodium (Senokot S) 2 tab PO BID PRN PRN Reason: Constipation Sodium Bicarbonate (Bicarbonate, Sodium) 650 mg PO BID [facility] Last Admin: 09/20/18 09:04 Dose: 650 mg Zolpidem Tartrate (Ambien) 5 mg PO HSPRN PRN PRN Reason: Insomnia
[2018-09-20] MEDS: cefTRIAXone\\ROCEPHIN 1 GM in Sodium Chloride 0.9% 100 ML IVPB SCH (11:58)
[2018-09-20] MEDS: HumaLOG 300 UNITS/3 ML VIAL SC PRN (12:08)
--- NOTE | 2018-09-20 14:15 | CON ---
DATE OF CONSULTATION: 09/19/2018 CONSULTING PHYSICIAN: Afia Burk MD REQUESTING PHYSICIAN: Jacobo Berg MD REASON FOR CONSULTATION: Need for maintenance renal replacement therapy. IMPRESSION: 1. End-stage renal disease, peritoneal dialysis dependent. 2. Pneumonitis. 3. Hypokalemia. 4. Anemia of chronic kidney disease. PLAN: 1. The patient to be continued on current modality of peritoneal dialysis. 2. Erythropoiesis-stimulating agent likely needed. 3. Discontinue oral iron intake. In place of this, the patient to be given parenteral iron. 4. Replete potassium. 5. Check the magnesium level and replete accordingly. 6. Further management will be dependent on the clinical course. HISTORY OF PRESENT ILLNESS: This is a 63-year-old female presents with end-stage renal disease, peritoneal dialysis dependent, who presented here with fever, shortness of breath, and imaging studies having suggestive of pneumonitis. On further evaluation, the patient was noted to be severely hypokalemic with potassium of 3.8. The patient also did complain of some shortness of breath, as a result of the need for renal replacement therapy. Decision has been taken to involve renal management of this case. PAST MEDICAL HISTORY: Significant for, 1. End-stage renal disease, peritoneal dialysis dependent. 2. Recurrent pleural effusion. 3. Diabetes mellitus. MEDICATIONS: Reviewed and are documented in [facility]. ALLERGIES: IODINE. FAMILY HISTORY: Nothing significant to presenting illness. SOCIAL HISTORY: Denies alcohol, tobacco, or illicit drug use. REVIEW OF SYSTEMS: As documented in the body of the history. All the other systems were reviewed and found not to be significantly related to presenting illness. PHYSICAL EXAMINATION: GENERAL: The patient was found to be ill looking, not able to be following. VITAL SIGNS: Afebrile, temperature 98.5, pulse 86, respiratory rate of 20, blood pressure 137/62. HEENT: Unremarkable. CARDIOVASCULAR SYSTEM: First and second sounds were heard. RESPIRATORY SYSTEM: Clear to auscultation. ABDOMEN: Positive bowel sounds. EXTREMITIES: No peripheral edema. SKIN: No new bruise or rash. LYMPHATICS: No peripheral lymphadenopathy. In summary, 63-year-old female patient with end-stage renal disease, peritoneal dialysis dependent, who presented here with significant respiratory distress now and treatment for pneumonitis. Job ID: [id number]
--- NOTE | 2018-09-20 20:33 | PRG ---
DATE OF SERVICE: 09/20/2018 SUBJECTIVE: The patient was seen and examined. Seems to be feeling much better. OBJECTIVE: VITAL SIGNS: Afebrile, temperature 98, pulse 90, respiratory rate of 19, O2 saturation 92% with blood pressure of 148/81. HEENT: Unremarkable. Moist oral mucosa. NECK: Supple. No conjunctival injection or icterus. CARDIOVASCULAR: First and second heart sounds were heard. RESPIRATORY: Clear to auscultation. DIGESTIVE: Reviewed. Benign abdomen. EXTREMITIES: No peripheral edema. SKIN: No new bruise or rash. LYMPHATICS: No peripheral lymphadenopathy. IMPRESSION: 1. End-stage renal disease, on peritoneal dialysis. 2. Pneumonitis, on treatment. PLAN: 1. We will continue current renal supportive measures. 2. Continue outpatient dialysis per patient's schedule. 3. Further management will be depending on the clinical course. Job ID: [id number]
[2018-09-20] MEDS: Atorvastatin Calcium 10 MG TAB PO SCH (20:36)
[2018-09-21] MEDS: Levothyroxine Sodium 88 MCG TAB PO SCH (05:26)
[2018-09-21 07:55] VITALS: BP 143/82; TEMP 97.6
[2018-09-21] MEDS: Amlodipine 10 MG TAB PO SCH (07:59)
[2018-09-21] MEDS: guaiFENesin ER 600 MG TAB PO SCH (07:59)
[2018-09-21] MEDS: Losartan 25 MG TAB PO SCH (08:00)
[2018-09-21] MEDS: Calcium Acetate 667 MG CAP PO SCH ×2 (08:01→11:36)
[2018-09-21] MEDS: Sodium Bicarbonate Tab 325 MG TAB PO SCH (08:01)
[2018-09-21] MEDS: Multivitamin W/ Minerals 1 TAB PO SCH (08:02)
[2018-09-21] MEDS: Heparin 5,000 UNITS/ML VIAL SC SCH (08:02)
[2018-09-21] MEDS: Potassium Chloride 20 MEQ TAB PO SCH (08:02)
[2018-09-21] MEDS: Insulin Glargine 14 UNITS in Pre-Filled Syringe 1 EACH SC SCH (08:04)
--- NOTE | 2018-09-21 09:31 | PDOC.PN ---
- Subjective Encounter Start Date: 09/21/18 Encounter Start Time: 08:55 -: old records requested/rev Patient seen and examined. No new complaints. No overnight events - Objective Resuscitation Status - Order Detail: 09/19/18 07:34 Resuscitation Status Routine Resuscitation Status: FULL: Full Resuscitation MAR Reviewed: Yes Vital Signs & Weight: Vital Signs (12 hours) Temp Pulse Resp BP BP BP Pulse Ox 09/21/18 08:00 95 09/21/18 07:59 90 143/82 H 09/21/18 07:52 97.6 F 90 18 143/82 H 95 09/21/18 04:00 98.7 F 88 16 146/90 H 95 09/21/18 03:56 92 L 09/21/18 00:00 98.1 F 92 16 155/91 H 92 L Weight Weight 125 lb I&O: 09/20/18 09/21/18 09/22/18 06:59 06:59 06:59 Intake Total 900 1160 Output Total 1312 493 Balance -412 667 Result Diagrams: 09/20/18 03:59 09/20/18 03:59 Additional Labs: Accuchecks 09/21/18 09/20/18 09/20/18 05:11 20:28 16:02 POC Glucose 163 H 108 85 09/20/18 11:53 POC Glucose 177 H Phys Exam - Physical Examination Constitutional: NAD HEENT: PERRLA, moist MMs, sclera anicteric Neck: no JVD, supple Respiratory: no wheezing, no rales, no rhonchi Cardiovascular: RRR, no significant murmur, no rub Gastrointestinal: soft, non-tender, no distention, positive bowel sounds Musculoskeletal: no edema, pulses present Neurological: non-focal, normal sensation, moves all 4 limbs Lymphatic: no nodes Psychiatric: normal affect, A&O x 3 Skin: no rash, normal turgor Dx/Plan (1) Community acquired bacterial pneumonia Code(s): J15.9 - UNSPECIFIED BACTERIAL PNEUMONIA Status: Acute (2) Hypokalemia Code(s): E87.6 - HYPOKALEMIA Status: Acute (3) Hypomagnesemia Code(s): E83.42 - HYPOMAGNESEMIA Status: Acute (4) Infection due to human metapneumovirus (hMPV) Code(s): B97.81 - HUMAN METAPNEUMOVIRUS THE CAUSE OF DISEASES CLASSD ELSWHR Status: Acute (5) Weakness generalized Code(s): R53.1 - WEAKNESS Status: Acute (6) Anemia of renal disease Code(s): N18.9 - CHRONIC KIDNEY DISEASE, UNSPECIFIED; D63.1 - ANEMIA IN CHRONIC KIDNEY DISEASE Status: Chronic (7) DM2 (diabetes mellitus, type 2) Status: Chronic Comment: accuchecks, insulin sliding scale. (8) ESRD on peritoneal dialysis Code(s): N18.6 - END STAGE RENAL DISEASE; Z99.2 - DEPENDENCE ON RENAL DIALYSIS Status: Chronic (9) GERD (gastroesophageal reflux disease) Code(s): K21.9 - GASTRO-ESOPHAGEAL REFLUX DISEASE WITHOUT ESOPHAGITIS Status: Chronic (10) Hepatitis C Code(s): B19.20 - UNSPECIFIED VIRAL HEPATITIS C WITHOUT HEPATIC COMA Status: Chronic (11) Hypertension Code(s): I10 - ESSENTIAL (PRIMARY) HYPERTENSION Status: Chronic Comment: titrate antihypertensives as needed. (12) Hypothyroidism Code(s): E03.9 - HYPOTHYROIDISM, UNSPECIFIED Status: Chronic (13) Secondary hyperparathyroidism of renal origin Code(s): N25.81 - SECONDARY HYPERPARATHYROIDISM OF RENAL ORIGIN Status: Chronic - Plan cont current plan of care, continue antibiotics * medication reviewed as below * symptomatic treatment * see my discharge juana. Review of Systems - Review of Systems ENT: negative: Ear Pain, Ear Discharge, Nose Pain, Nose Discharge, Nose Congestion, Mouth Pain, Mouth Swelling, Throat Pain, Throat Swelling, Other Respiratory: negative: Cough, Dry, Shortness of Breath, Hemoptysis, SOB with Excertion, Pleuritic Pain, Sputum, Wheezing Cardiovascular: negative: chest pain, palpitations, orthopnea, paroxysmal nocturnal dyspnea, edema, light headedness, other Gastrointestinal: negative: Nausea, Vomiting, Abdominal Pain, Diarrhea, Constipation, Melena, Hematochezia, Other Genitourinary: negative: Dysuria, Frequency, Incontinence, Hematuria, Retention , Other Musculoskeletal: negative: Neck Pain, Shoulder Pain, Arm Pain, Back Pain, Hand Pain, Leg Pain, Foot Pain, Other - Medications/Allergies Allergies/Adverse Reactions: Allergies Allergy/AdvReac Type Severity Reaction Status Date / Time Iodine and Iodide Containing Allergy Verified 09/18/18 22:47 Produc Medications: Current Medications Acetaminophen (Tylenol) 650 mg PO Q4H PRN PRN Reason: Headache/Fever/Mild Pain (1-3) Last Admin: 09/19/18 12:22 Dose: 650 mg Hydrocodone Bitart/Acetaminophen (Mulberry 5/325) 1 tab PO Q4H PRN PRN Reason: Moderate Pain (4-6) Albuterol Sulfate (Proventil Hfa) 2 puff INH Q4H PRN PRN Reason: Dyspnea Albuterol/Ipratropium (Duoneb) 3 ml NEB [id number] PRN PRN Reason: SOB &/or Wheezing Amlodipine Besylate (Norvasc) 10 mg PO QAM [facility] Last Admin: 09/21/18 07:59 Dose: 10 mg Aspirin (Aspirin Chewable) 81 mg PO DAILY [facility] Last Admin: 09/21/18 07:59 Dose: 81 mg Atorvastatin Calcium (Lipitor) 10 mg PO HS [facility] Last Admin: 09/20/18 20:36 Dose: 10 mg Bisacodyl (Dulcolax) 10 mg NM DAILYPRN PRN PRN Reason: Constipation Bisacodyl (Dulcolax) 10 mg PO DAILYPRN PRN PRN Reason: Constipation Calcium Acetate (Phoslo) 667 mg PO TID-WM [facility] Last Admin: 09/21/18 08:01 Dose: 667 mg Calcium Carbonate (Tums) 1,000 mg PO Q4H PRN PRN Reason: Heartburn or Indigestion Dextrose/Water (Dextrose 50%) 25 gm IVP PRN PRN PRN Reason: HYPOGLYCEMIA PROTOCOL Last Admin: 09/19/18 15:54 Dose: 25 gm Ergocalciferol (Drisdol) 1.25 mg PO Q7DAYS [facility] Last Admin: 09/19/18 12:38 Dose: 1.25 mg Glucagon (Glucagon) 1 mg IM PRN PRN PRN Reason: HYPOGLYCEMIA PROTOCOL Guaifenesin (Mucinex) 600 mg PO Q12HR [facility] Last Admin: 09/21/18 07:59 Dose: 600 mg Heparin Sodium (Porcine) (Heparin) 5,000 units SC BID [facility] Last Admin: 09/21/18 08:02 Dose: 5,000 units Dextrose/Water (D5w) 1,000 mls @ 0 mls/hr IV INF PRN PRN Reason: HYPOGLYCEMIA PROTOCOL Ceftriaxone Sodium 1 gm/ (Sodium Chloride) 100 mls @ 200 mls/hr IVPB 1200 [facility] Last Admin: 09/20/18 11:58 Dose: 100 mls Insulin Glargine 14 units/ (Miscellaneous Medication) 0.14 mls @ 0 mls/hr SC DAILY [facility] Last Admin: 09/21/18 08:04 Dose: Not Given Levofloxacin 500 mg/ Device 100 mls @ 100 mls/hr IVPB Q2DAYS@1300 [facility] Insulin Human Lispro (Humalog) 0 units SC .MILD SLIDING SCALE PRN; Protocol PRN Reason: MILD SLIDING SCALE Last Admin: 09/20/18 12:08 Dose: 2 unit Iron/Minerals/Multivitamins (Theragran M) [facility] Last Admin: 09/21/18 08:02 Dose: 1 tab Levothyroxine Sodium (Synthroid) 88 mcg PO 0600 [facility] Last Admin: 09/21/18 05:26 Dose: 88 mcg Loperamide HCl (Imodium) 2 mg PO PRN PRN PRN Reason: Diarrhea/Loose Stools Losartan Potassium (Cozaar) 100 mg PO [facility] Last Admin: 09/21/18 08:00 Dose: 100 mg Ondansetron HCl (Zofran Odt) 4 mg PO Q6H PRN PRN Reason: Nausea/Vomiting Ondansetron HCl (Zofran) 4 mg IVP Q6H PRN PRN Reason: Nausea/Vomiting Pantoprazole Sodium (Protonix) 40 mg PO [facility] Last Admin: 09/21/18 08:01 Dose: 40 mg Glecaprevir/Pibrentasvir [ Mavyret 100-40 Mg Tablet] 0 each PO [facility] Potassium Chloride (K-Dur) 40 meq PO [facility] Last Admin: 09/21/18 08:02 Dose: 40 meq Senna/Docusate Sodium (Senokot S) 2 tab PO BID PRN PRN Reason: Constipation Sodium Bicarbonate (Bicarbonate, Sodium) 650 mg PO BID [facility] Last Admin: 09/21/18 08:01 Dose: 650 mg Zolpidem Tartrate (Ambien) 5 mg PO HSPRN PRN PRN Reason: Insomnia
--- NOTE | 2018-09-21 10:04 | DIS ---
DATE OF ADMISSION: 09/18/2018 DATE OF DISCHARGE: 09/21/2018 PRIMARY CARE PHYSICIAN: Christa Schumacher MD DISCHARGE DISPOSITION: Home. PRIMARY DISCHARGE DIAGNOSES: 1. Community-acquired bacterial pneumonia, suspecting streptococcal. 2. Hypokalemia, replaced. 3. Hypomagnesemia, replaced. 4. Human metapneumovirus infection. 5. Generalized weakness. SECONDARY DISCHARGE DIAGNOSES: 1. Secondary hyperparathyroidism of renal origin. 2. Hypothyroidism. 3. Hypertension. 4. Hepatitis C. 5. Gastroesophageal reflux disease. 6. End-stage renal disease, on hemodialysis. 7. Diabetes type 2. 8. Anemia of renal disease. PRIMARY PROCEDURE/OPERATION: Maintenance peritoneal dialysis while in hospital. RADIOLOGICAL INVESTIGATION: Chest x-ray on admission showed right lower lobe infiltration. SIGNIFICANT LABORATORY DATA: WBC 6.0, hemoglobin 9.9, and platelets 152. Sodium 142, potassium 4.0, BUN 35, creatinine 6.69, calcium 8.3, magnesium 2.1, phosphorous 3.1, AST 18, ALT 14, alkaline phosphatase 165, and albumin 2.4. Respiratory virus panel positive for human metapneumovirus. DISCHARGE MEDICATIONS: 1. ProAir HFA 2 puffs q.4 hourly p.r.n. 2. Vitamin D2 of 50,000 units p.o. once a week. 3. Norvasc 10 mg daily. 4. Aspirin 81 mg daily. 5. Lipitor 10 mg p.o. at bedtime. 6. PhosLo 667 mg t.i.d. 7. Nexium 40 mg daily. 8. Ferrous sulfate 325 mg p.o. t.i.d. 9. Mavyret 100/40 one tablet daily. 10. NovoLog insulin as per sliding scale. 11. Levemir insulin 14 units subcu daily. 12. Synthroid 88 mcg p.o. daily. 13. Losartan 100 mg p.o. daily. 14. Multivitamin 1 tablet p.o. daily. 15. Potassium chloride 40 mEq p.o. daily. 16. Sodium bicarbonate 650 mg p.o. b.i.d. 17. Mucinex 600 mg twice daily for 7 days. 18. Levaquin 500 mg p.o. every other day for 7 days. CONTRAINDICATION: None. CODE STATUS: Full code. INPATIENT CONSULTANTS: Dr. Oreilly was following while in hospital for maintenance peritoneal dialysis. TEST RESULTS PENDING ON DISCHARGE: None. ALLERGIES: IODINE AND IODINE-CONTAINING PRODUCTS. DISCHARGE PLAN: Posthospital, the patient will follow with primary care physician in 1 week. HOSPITAL COURSE: This is a 63-year-old female, who was admitted by me on September 19, 2018. Please see my HPI for further details. The patient was feeling extremely weak. She was having upper and lower respiratory symptoms. She was having cough, subjective fever. On admission, her chest x-ray was consistent with right lower lobe pneumonia. She was given antibiotic prescription by primary care physician that did not improve her overall condition. On admission, routine blood test showed hypokalemia and hypomagnesemia, which were replaced while in hospital and corrected. The patient was treated with Rocephin and Levofloxacin based on renal dose. Her viral panel was positive for human metapneumovirus infection. The patient was initially admitted to telemetry floor, and subsequently, we transported her to medical floor, we started physical therapy and the patient was doing very well. Over next 24 to 48 hours of treatment, the patient's condition significantly improved. Her cough is also improving. The patient was also getting maintenance hemodialysis while in hospital. We continued all her home medication while in hospital. She will continue all her previous medications upon discharge. DISCHARGE PHYSICAL EXAMINATION: VITAL SIGNS: The patient is seen and examined at bedside today. Necessary the patient education given. Currently, temperature 97.6, pulse 90, blood pressure 143/82, saturation 95% on room air. Weight 125 pounds. GENERAL: The patient is currently alert, awake. No obvious acute distress. HEAD: Normocephalic, atraumatic. EYES: Pupils are round and reactive to light. Extraocular muscle intact. ENT: Oropharynx within normal limits. Moist mucous membrane. No oral lesion. No pharyngeal erythema. No exudate. NECK: Supple. No JVD. No thyromegaly. No carotid bruits. LUNGS: Clear to auscultation without any rhonchi or rales. CARDIAC: S1 and S2, regular without any murmur. ABDOMEN: Soft and benign without any tenderness. Peritoneal dialysis catheter in place. EXTREMITIES: No edema. NEUROLOGIC: Nonfocal examination. REVIEW OF SYSTEMS: Reviewed with her and negative. Currently, the patient is medically stable for discharge. All new medication prescription sent to her pharmacy. TOTAL TIME SPENT: Total time spent on discharge today, 31 minutes. Job ID: [id number]
[2018-09-21] MEDS: cefTRIAXone\\ROCEPHIN 1 GM in Sodium Chloride 0.9% 100 ML IVPB SCH (11:36)
[2018-09-21] MEDS: HumaLOG 300 UNITS/3 ML VIAL SC PRN (11:42)
--- NOTE | 2018-09-21 21:19 | PRG ---
DATE OF SERVICE: 09/21/2018 SUBJECTIVE: The patient was seen and examined. Seems to be doing very well. OBJECTIVE: VITAL SIGNS: Noted with the following vital signs. Afebrile, temperature 97.6, pulse 90, blood pressure 143/82, O2 saturation 95%. HEENT: Unremarkable. CARDIOVASCULAR SYSTEM: First and second heart sounds were heard. RESPIRATORY SYSTEM: Clear to auscultation. DIGESTIVE SYSTEM: Reviewed. Benign abdomen with positive bowel sounds. EXTREMITIES: No peripheral edema. SKIN: No new bruise or rash. LYMPHATICS: No peripheral lymphadenopathy. IMPRESSION: 1. End-stage renal disease, on peritoneal dialysis. 2. Pneumonitis, on treatment. PLAN: 1. From the renal standpoint, the patient is due for discharge. 2. Further management will be dependent on the clinical course. Job ID: [id number]
== END 2018-09-21 14:04 | disposition home or self-care (01) | DRG 193 ==
LOC: ERS 17:52 → 2NO 19:23 → T4-B 09-19 18:52
PROVIDERS: ADMIT Internal Medicine; ATTEND Internal Medicine
PROC: 5A1D80Z Performance of Urinary Filtration, Prolonged Intermittent, 6-18 hours Per Day (ICD-10-PCS; principal; 2018-09-20)
DX: J15.9 Unspecified bacterial pneumonia (principal); N18.6 End stage renal disease; I12.0 Hypertensive chronic kidney disease with stage 5 chronic kidney disease or end stage renal disease; N25.81 Secondary hyperparathyroidism of renal origin; E87.6 Hypokalemia; E83.42 Hypomagnesemia; B97.81 Human metapneumovirus as the cause of diseases classified elsewhere; D63.1 Anemia in chronic kidney disease; E11.22 Type 2 diabetes mellitus with diabetic chronic kidney disease; K21.9 Gastro-esophageal reflux disease without esophagitis; B19.20 Unspecified viral hepatitis C without hepatic coma; E03.9 Hypothyroidism, unspecified
CPT/HCPCS: 36415; 36416; 71045; 80048; 80053; 82553; 83735; 84100; 84484; 85025; 87633; 87804; 90945; 93005; G0257; G8978-GP-CM; G8979-GP-CK; G8987-GO-CI; G8988-GO-CI; G8989-GO-CI; J0696; J1644; J1956; J7050